=== PATIENT | female | born 1970 | race Caucasian/White ===

== ENCOUNTER → 2017-10-06 08:41 | Outpatient (CLI) | payer OTHER, SELFPAY ==
--- NOTE | 2017-10-06 | FLU_PTH ---
PATIENT: BERNARDO RUIZ LOC: U#:[id number] AGE/SX: 55/F ROOM: RE10/06/[address]: Dr. Ranjan Heart MD : 1970 BED: DIS: SPEC #: [id number] RECD: 10/06/17 10:43 STATUS: DEREK POTTS #: [id number] LAINA: 10/06/17 00:[address]: Ranjan Heart DEPT: CYTOLOGY RECD BY: Kody Guzman ENTERED: 10/06/17 10:51 SP TYPE: Fluid OTHR DR: Dr. Ger Reeder MD Tissues: Thyroid gland, NOS Procedures: FNA Specimen Adequacy Pap Stain (control) Special Stain Group II Surgery Specimen Level IV Diff Quik Stain (control) Cell Block Cytospin Fluid HEADER OPERATION: Ultrasound-guided right thyroid biopsy PRE-OP DIAGNOSIS: Right thyroid nodule TISSUE SUBMITTED: Right thyroid nodule FNA (14 slides) DIAGNOSIS CYTOLOGY Right thyroid nodule, ultrasound-guided FNA (smears and cell block): Consistent with benign colloid nodule. See cytology study and comment. ERVIN:julien 10/07/17 COMMENT The specimen is evaluated at the time of right thyroid FNA by Dr. Hills. Immediate Evaluation = Adequate for evaluation. Follicular cells present. Correlation with clinical, radiologic findings and appropriate follow up are necessary. CYTOLOGY STUDY Slides are reviewed. The specimen is adequate for evaluation. The specimen consists of benign follicular cells and colloid. CYTOLOGY GROSS Received is 0.5 ml of bloody fluid from three passes labeled with the patient's name, and designated right thyroid. Seven imprints and seven paps are made from the submitted fluid and the rest is added to CytoLyt for cell block preparation. Submitted for cytology study. / ERVIN:julien 10/06/17 TC:5 CPT:83126, 97078, 80858
--- NOTE | 2017-10-06 08:45 | US_ITS ---
STUDY: ULTRASOUND GUIDED BIOPSY THE RIGHT THYROID NODULE. REASON FOR EXAM: Female, 47 years old. Right thyroid nodule. TECHNIQUE: Under direct sonographic guidance, the surgeon performed 3 ultrasound-guided biopsies of the 3 cm x 1.7 cm x 1.6 cm solid nodule in the right lobe. COMPARISON: None. FINDINGS: Successful ultrasound-guided biopsy of the dominant nodule in the right lobe of the thyroid. US/US Thyroid Biopsy IMPRESSION: Successful ultrasound-guided biopsy of the nodular density in the right lobe of the thyroid. Electronically Signed: Evaristo Newby MD at 10:49 EST Tel [phone], Service support ,
--- NOTE | 2017-10-06 10:57 | PCM.OPRPT ---
Problem List (1) Nontoxic multinodular goiter Status: Acute Report of Operation Date of Procedure: 10/06/17 Pre-Operative Diagnosis: e04.2 multinodular goiter Post-Operative Diagnosis: Same Surgery/Procedure Performed:: 65104 Ultrasound-guided fine-needle aspiration of dominant right thyroid nodule Type of Anesthesia:: Local Description of Procedure: Ultrasound of the right thyroid gland revealed the dominant nodule in question. I prepped the skin with Betadine. I injected 1% lidocaine plain. Under ultrasound guidance I took 3 passes with a 22-gauge needle. These were given to the pathologist in the room and she stated we had adequate number of follicular cells. Sterile dressings were applied. The patient tolerated the procedure well. - Admit VTE Documentation VTE Present on Admission: No VTE Mechan Device Prophylaxis: None VTE Pharm Prophylaxis ordered?: No Reason prophylaxis not ordered:: Treatment Not Indicated
--- NOTE | 2017-10-06 11:01 | OP.PCM_ITS ---
Problem List (1) Nontoxic multinodular goiter Status: Acute Report of Operation Date of Procedure: 10/06/17 Pre-Operative Diagnosis: e04.2 multinodular goiter Post-Operative Diagnosis: Same Surgery/Procedure Performed:: 01214 Ultrasound-guided fine-needle aspiration of dominant right thyroid nodule Type of Anesthesia:: Local Description of Procedure: Ultrasound of the right thyroid gland revealed the dominant nodule in question. I prepped the skin with Betadine. I injected 1% lidocaine plain. Under ultrasound guidance I took 3 passes with a 22-gauge needle. These were given to the pathologist in the room and she stated we had adequate number of follicular cells. Sterile dressings were applied. The patient tolerated the procedure well. - Admit VTE Documentation VTE Present on Admission: No VTE Mechan Device Prophylaxis: None VTE Pharm Prophylaxis ordered?: No Reason prophylaxis not ordered:: Treatment Not Indicated
== END ==
PROVIDERS: Family Provider Family Medicine; PCP Family Medicine; Visit Provider Surgery
DX: E04.1 Nontoxic single thyroid nodule (principal)
CPT/HCPCS: 10022; 76942; 88108; 88172; 88305; 88312; 88313

== ENCOUNTER → 2017-10-13 15:18 | Outpatient (CLI) | payer OTHER, SELFPAY ==
[2017-10-19 15:55] LABS: HPV APTIMA, High Risk Negative (Negative)
== END ==
PROVIDERS: Nurse Practitioner Women's Health; Visit Provider Obstetrics & Gynecology
DX: Z12.4 Encounter for screening for malignant neoplasm of cervix (principal)
CPT/HCPCS: 88175; G0145

== ENCOUNTER → 2018-02-15 12:54 | Outpatient (CLI) | payer OTHER, SELFPAY ==
--- NOTE | 2018-02-15 12:56 | BI_ITS ---
MAMMOGRAPHY - BILATERAL SCREENING REASON FOR EXAM: Female, 48 years old. Routine annual screening examination. PERTINENT HISTORY: Non-contributory. TECHNIQUE: Digital bilateral breast jeanie (3D mammographic acquisition) in the CC and MLO projections. 2-D mediolateral oblique (MLO) and craniocaudad (CC) views of both breasts were obtained. CAD: Full Field Digital Mammography with Computer Added Detection was performed. COMPARISON: Comparison is made with prior outside examination dated January 11, 2017. FINDINGS: Breast Composition: The breasts are extremely dense, which lowers the sensitivity of mammography. There are no dominant masses or suspicious calcifications. No other significant abnormalities are identified. There has been no significant change since the prior study. BI/SCREENING MAMM (CAD), BILAT IMPRESSION: Stable bilateral screening mammogram. Yearly follow-up mammogram recommended. (A) ASSESSMENT CATEGORY: BIRADS Category 1: Negative. A letter regarding these results will be sent to the patient by the facility within 30 days. Approximately 10% of breast cancers are not detected by mammography. A normal mammogram should not delay biopsy of a clinically suspicious abnormality. [id number] Electronically Signed: Evaristo Newby MD at 15:11 EDT Tel [phone], Service support ,
== END ==
PROVIDERS: Family Provider Family Medicine; PCP Family Medicine; Visit Provider Nurse Practitioner Women's Health
DX: Z12.31 Encounter for screening mammogram for malignant neoplasm of breast (principal)
CPT/HCPCS: 77063; 77067

== ENCOUNTER → 2018-09-20 08:42 | Outpatient (CLI) | payer OTHER, SELFPAY ==
--- NOTE | 2018-09-20 08:49 | US_ITS ---
STUDY: THYROID ULTRASOUND REASON FOR EXAM: Female, 48 years old. Thyroid nodules TECHNIQUE: Ultrasound evaluation of the thyroid was performed with real-time and static mora-scale imaging. COMPARISON: 08/15/2017 FINDINGS: RIGHT LOBE: The right lobe of the thyroid gland measures 5.8 x 2.2 x 2.1 cm. There is a heterogeneous. There are multiple solid nodules, the largest of which measures 2.3 x 1.7 x 1.9 cm, not significantly changed in size and appearance compared to prior imaging. A smaller predominantly solid lesion is seen measuring 2.0 x 1.6 x 1.2 cm, unchanged. LEFT LOBE: The left lobe of the thyroid gland measures 4.4 x 1.0 x 1.1 cm. There is a heterogeneous. There is a solid lesion within the mid to lower pole measuring 0.5 x 0.4 x 0.2 cm, unchanged. ISTHMUS: The isthmus measures 4 mm. A 1.2 x 0.6 x 0.8 cm predominantly solid nodule is seen near the junction of the isthmus and right thyroid lobe, unchanged. The regional lymph nodes are normal. US/Thyroid IMPRESSION: Stable bilateral solid thyroid nodules measuring up to 2.3 cm, unchanged from prior imaging. Electronically Signed: Israel Weir MD at 3:59 EST Tel , Service support ,
--- OUTSIDE RECORDS SUMMARY | 2018-11-22 09:08 | XMS RPT_ITS ---
:1970 Author Organization [place] Support Name Relationship Address Phone EULALIO RUIZ Unavailable [address] + [place] [address] COVERT, KOKI Unavailable [address] + [place] [address] UNEMPLOYED Unavailable 00 + [place] [address] EULALIO RUIZ Unavailable [address] + [place] [address] COVERT, KOKI Unavailable [address] + [place] [address] UE Unavailable Unavailable Unavailable EULALIO RUIZ Unavailable [address] + [place] [address] COVERT, KOKI Unavailable [address] + [place] [address] UE Unavailable Unavailable Unavailable EULALIO RUIZ Unavailable [address] + [place] [address] COVERT, KOKI Unavailable [address] + [place] [address] UE Unavailable Unavailable Unavailable EULALIO RUIZ Unavailable [address] + [place] [address] COVERT, KOKI Unavailable [address] + [place] [address] UE Unavailable Unavailable Unavailable EULALIO RUIZ Unavailable [address] + [place] [address] COVERT, KOKI Unavailable [address] + [place] [address] UE Unavailable Unavailable Unavailable EULALIO RUIZ Unavailable [address] + [place] [address] COVERT, KOKI Unavailable [address] + [place] [address] UE Unavailable Unavailable Unavailable EULALIO RUIZ Unavailable [address] + [place] [address] COVERT, KOKI Unavailable [address] + [place] [address] UE Unavailable Unavailable Unavailable EULALIO RUIZ Unavailable [address] + [place] [address] COVERT, KOKI Unavailable [address] + [place] [address] UE Unavailable Unavailable Unavailable Care Team Providers Name Role Phone Una, Ranjan Attending Unavailable Una, Ranjan Referring Unavailable Reeder, Ger Primary Care Unavailable Una, Ranjan Attending Unavailable Reeder, Ger Referring Unavailable [place], Ranjan Attending Unavailable Una, Ranjan Referring Unavailable Reeder, Ger Primary Care Unavailable Una, Ranjan Attending Unavailable Una, Ranjan Referring Unavailable Reeder, Ger Primary Care Unavailable Una, Ranjan Consulting Unavailable Una, Ranjan Attending Unavailable Reeder, Ger Referring Unavailable Cammie, Danika Attending Unavailable Reeder, Ger Referring Unavailable Reeder, Ger Primary Care Unavailable Marcanthony, Samira Attending Unavailable Marcanthony, Samira Referring Unavailable Una, Ranjan Attending Unavailable Cammie, Danika Attending Unavailable Lucile, Danika Referring Unavailable Reeder, Ger Primary Care Unavailable PROBLEMS PROBLEMS DATE TYPE CONDITION / CODE ATTENDING STATUS SOURCE 09/20/2018 Unknown E04.2 - Nontoxic Ranjan Heart Active [facility] multinodular [facility] goiter / Hospital E04.2(ICD-10) Repository 10/13/2017 Unknown Z12.31 - Encounter Danika Bonds Active [facility] for screening [facility] mammogram for Hospital malignant neoplasm Repository of breast / Z12.31(ICD-10) 10/13/2017 Unknown N60.19 - Diffuse Lucile, Molly Active [facility] cystic mastopathy [facility] of unspecified Hospital breast / Repository N60.19(ICD-10) 10/13/2017 Unknown Z12.4 - Encounter LucileDanika robert Active [facility] for screening for [facility] malignant neoplasm Hospital of cervix / Repository Z12.4(ICD-10) PROCEDURES PROCEDURES No Procedure Records FoundRESULTS RESULTS SURGERY VISIT REPORT Observed: 09/23/2018 Status: F Source: [facility] 9[facility] [address] [place] [address] OFFICE VISIT Date of Service: 09/23/18 MR#: [id number] Acct: [id number] Name: BERNARDO RUIZ Rep #: [id number] : 1970 Provider: Ranjan Heart MD Age/Sex: 48/F Location: [facility] Status: Signed Intake Vital Signs09/23/18 Height 5 ft 4 in 09/23/18 Weight: 124 lb Intake Visit Reasons: Former [facility] 1 YR f/u Thyroid US [facility] 09/20 Chief Complaint: est annual Sleeve Maker Required: No Is patient in pain?: No Allergies venlafaxine [From Effexor] Allergy (Intermediate, Verified 09/23/18 09:15) skin crawling Medications bupropion HCl XL 150 mg 24 hr tablet, extended release 150 mg PO QAM 10/13/17 [History Confirmed 09/23/18] calcium citrate 200 mg (950 mg) tablet 500 mg PO BID tab 10/13/17 [History Confirmed 09/23/18] fluticasone 50 mcg/actuation nasal spray,suspension 50 mcg INTRANASAL ONCE 10/13/17 [History Confirmed 09/23/18] multivitamin,ja-afrc-efinwwyf tablet 1 tab PO QDAY 10/13/17 [History Confirmed 09/23/18] estradiol-norethindrone acet 0.5 mg-0.1 mg tablet 1 tab PO QDAY #84 tab 09/05/18 [Rx Confirmed 09/23/18] atorvastatin 10 mg tablet 10 mg PO DAILY 09/23/18 [History Confirmed 09/23/18] pantoprazole 40 mg tablet,delayed release 40 mg PO .prn tab 09/23/18 [History Confirmed 09/23/18] [facility]LY [facility] Medical History Hypercholesterolemia (Acute) Anxiety and depression (Acute) Back problem (Acute) GERD (gastroesophageal reflux disease) (Acute) Melanoma (Acute) history of melanoma removed off of wrist (Acute) Family History Mother Arthritis Mother Heart disease Hypertension Father Heart disease Hypertension High cholesterol Social History Smoking Status: Never smoker second hand exposure: No alcohol intake: current details: social substance use type: does not use caffeine: Yes frequency: 5-6 times per week seatbelt use: always do you feel safe at home: Yes 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 She has not been experiencing any changes in her voice she has no history of exposure to radiation. ROS General General: No weight change, appetite, fatigue, colon cancer, breast cancer or weakness HEENT HEENT: No difficulty swallowing, eye injury, eye surgery, swollen glands or hoarseness Endo Endocrine: No thyroid disease, diabetes mellitus, thyroid cancer, Hair loss, heat intolerance or cold intolerance Skin Skin: No rash or changing moles Breast Breast: No left breast lump, right breast lump, nipple discharge, breast pain, abnormal mammogram, abnormal US or breast enlargement Musc Musculoskeletal: No back problems, arthritis, rheumatoid arthritis, gout or joint pain Cardio Cardiovascular: No murmur, pacemaker, heart disease, atrial fibrillation, high blood pressure, heart attack, heart stent, palpitations, shortness of breat with exertion or chest pain Psych Psychiatric: No depression, anxiety or hearing voices Resp Respiratory: No shortness of breath, No sleep apnea, No cough, No COPD, No asthma, No emphysema, No wheezing Gastro Gastrointestinal: No abdominal pain, No nausea or vomiting, No diarrhea, No constipation, No blood in stool, Yes acid reflux, No hemorrhoids, No ulcers, No gallbladder problem, No black,tarry stools Ritesh Hematologic: No blood thinners, No blood disorders, No bleeding, No anemia, No blood clots Neuro Neurologic: No system reviewed and no additional complaints, except as docu, No as per HPI, No abnormal walking, No abnormal hearing, No abnormal movements, No abnormal speech, No behavioral changes, No burning sensations, No confusion, No seizure-like activity, No unsteadiness, No dizziness, No localized weakness, No frequent falls, No headache(s), No lack of coordination, No loss of vision, No memory loss, No numbness, No other visual disturbances, No radiating pain, No restless legs, No sensory deficit, No fainting, No tingling, No tremor(s), No weakness, No other Exam Const General: well developed, no acute distress, well hydrated Orientation: oriented to person, oriented to place, oriented to time [facility] Head: normocephalic, atraumatic Ears: external ears normal Mouth: moist mucous membranes Other: Thyroid Exam: Thyroid is small. There are no hard palpable nodules identified. There is no lymphadenopathy bilaterally. Eyes Sclera: sclerae normal Pupils: normal by confrontation Neck Neck: no lymphadenopathy noted Neck mass: No Thyroid: symmetrical, thyroid normal Chest Breast Palpation: No nipple discharge Cardio Heart Sounds: no murmurs Assessment AND Plan Problems 1. Multinodular goiter (nontoxic) E04.2 Plan Patient can continue to get her yearly thyroid ultrasounds. If there is any growth by more than 3% we will repeat a fine-needle aspiration. I have also instructed the patient that she needs to have a colonoscopy she is not interested in having this done at this time Medications New: Coding Level of Care Code Off vis,est,level 2 Diagnoses Multinodular goiter (nontoxic) E04.2 09/23/18 0926 <Electronically signed by Ranjan Heart MD> Date Ranjan Heart MD Cosigner Signature: Date (if applicable) CC: Ger Reeder MD THYROID Observed: 09/20/2018 Status: F Source: [place] 8:49 AM [facility] REPOSITORY [facility] Imaging Services [address] [place] [address] Thyroid MR#: [id number] Acct: [id number] Name: BERNARDO RUIZ Rep #: [id number] : 1970 F 48 From: Israel Weir MD PCP: Ger Reeder MD Status: REG CLI Study: Thyroid Date of Exam: 09/20/18 Exam# [id number] Ordering Dr: Ranjan Herat MD STUDY: THYROID ULTRASOUND REASON FOR EXAM: Female, 48 years old. Thyroid nodules TECHNIQUE: Ultrasound evaluation of the thyroid was performed with real-time and static mora-scale imaging. COMPARISON: 08/15/2017 FINDINGS: RIGHT LOBE: The right lobe of the thyroid gland measures 5.8 x 2.2 x 2.1 cm. There is a heterogeneous. There are multiple solid nodules, the largest of which measures 2.3 x 1.7 x 1.9 cm, not significantly changed in size and appearance compared to prior imaging. A smaller predominantly solid lesion is seen measuring 2.0 x 1.6 x 1.2 cm, unchanged. LEFT LOBE: The left lobe of the thyroid gland measures 4.4 x 1.0 x 1.1 cm. There is a heterogeneous. There is a solid lesion within the mid to lower pole measuring 0.5 x 0.4 x 0.2 cm, unchanged. ISTHMUS: The isthmus measures 4 mm. A 1.2 x 0.6 x 0.8 cm predominantly solid nodule is seen near the junction of the isthmus and right thyroid lobe, unchanged. The regional lymph nodes are normal. US/Thyroid IMPRESSION: Stable bilateral solid thyroid nodules measuring up to 2.3 cm, unchanged from prior imaging. Electronically Signed: Israel Weir MD at 3:59 EST Tel , Service support , CC: Ranjan Heart MD; Ger Reeder MD Warp Knit Operator: Signed LOAN REPRESENTATIVE OFFICE VISIT Observed: 08/04/2018 Status: F Source: [place] REPORT 2:38 PM [facility] [address] [place] [address] OFFICE VISIT Date of Service: 10/13/17 MR#: [id number] Acct: [id number] Name: BERNARDO RUIZ Rep #: [id number] : 1970 Provider: BAM Bonds Age/Sex: 47/F Location: [facility] Status: Signed with Addenda ADDENDUM by BAM Bonds on 08/04/18 at 1438 Addendum entered and electronically signed by LÓPEZ Lieberman 08/04/18 14:38: Rectal exam was deferred. No masses palpated Assessment AND Plan Problems 1. Encounter for gynecological examination without abnormal finding Z01.419 2. Pap smear for cervical cancer screening Z12.4 3. Encounter for screening mammogram for malignant neoplasm of breast Z12.31 4. Fibrocystic disease of left breast N60.12 left breast-ultrasound previous. No biopsy Plan - LÓPEZ Lieberman Completed breast and pelvic exam Reviewed diet and exercise Pap thin prep pap with HPV collected Mammogram ordered Contraception partner with vasectomy Fibrocystic breast is not new for her and has been evaluated in past Will continue with Activella but will try to take very other day and attempt to wean down further next year RTO 1 year, prn with problems Danika Bonds OVERNIGHT HOUSEPERSON Orders Orders: Medications Changed: 08/04/18 1438 <Electronically signed by Danika DAWN> Date Danika Bonds cc: * Signed Intake Vital Signs10/13/17 Height 5 ft 4 in 10/13/17 Weight: 116 lb 6 oz 10/13/17 Body Mass Index (BMI) 20.0 10/13/17 Blood Pressure 121/73 Intake Visit 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 [facility] PT Chief Complaint: est annual Sleeve Maker Required: No Is patient in pain?: No Allergies venlafaxine [From Effexor] Allergy (Intermediate, Verified 10/13/17 09:43) skin crawling Medications bupropion HCl XL 150 mg 24 hr tablet, extended release 150 mg PO QAM 10/13/17 [History Confirmed 10/13/17] calcium citrate 200 mg (950 mg) tablet 500 mg PO BID tab 10/13/17 [History Confirmed 10/13/17] estradiol-norethindrone acet 0.5 mg-0.1 mg tablet 1 tab PO QDAY #84 tab 10/13/17 [Rx Confirmed 10/13/17] fluticasone 50 mcg/actuation nasal spray,suspension 50 mcg INTRANASAL ONCE 10/13/17 [History Confirmed 10/13/17] multivitamin,be-ldzj-pmjrxzna tablet 1 tab PO QDAY 10/13/17 [History Confirmed 10/13/17] Is last menstrual period known: Yes Last Menstral Period: 04/30/10 Post menopausal: No Patient : No : No PFSH Medical History Anxiety and depression (Acute) Back problem (Acute) GERD (gastroesophageal reflux disease) (Acute) Melanoma (Acute) history of melanoma removed off of wrist (Acute) Family History Mother Arthritis Mother Heart disease Hypertension Father Heart disease Hypertension High cholesterol Social History Smoking Status: Never smoker second hand exposure: No alcohol intake: current details: social substance use type: does not use caffeine: Yes frequency: 5-6 times per week seatbelt use: always do you feel safe at home: Yes 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 DatName GA/WeeksOutcome Route 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 Denies concerns Last PAP: unsure History of abnormal PAP: no Last mammogram: 10/2016 History of abnormal mammogram: benign biopsy Contraception-vasectomy Female Reproductive History Last Menstral Period: 04/30/10 Questions: Metorrhagia: No, Sexually active: No, Dyspareunia: No, PCB: No Date of menopause: 04/30/10 Menopausal Treatment: Yes HRT Exam Const General: cooperative, healthy appearing, no acute distress, well developed Orientation: alert, oriented to person, oriented to place [facility] Head: normal to inspection Neck Neck: normal visual inspection Thyroid: thyroid normal Lymphatic: no lymphadenopathy noted Chest Breast inspection: normal inspection of the breasts, normal inspection of the axillae Breast palpation: normal palpation of the breasts, normal palpation of the axillae, no axillary lymphadenopathy Resp Effort AND Inspection: normal respiratory effort Auscultation: clear to auscultation bilaterally Cardio Rate: regular rate Rhythm: regular rhythm GI Palpation: soft, nontender, no masses Rectal Exam: mass, deferred External Female Exam: normal external appearance, normal appearance of the urethra Urethra: normal appearance of the urethra, normal palpation Speculum Exam - Vagina: normal appearance of the vagina, normal vaginal discharge Speculum Exam - Cervix: normal appearance of the cervix, other (pap collected) Bimanual Exam- Vagina AND Uterus: normal bimanual exam, uterine size normal, uterine shape normal, uterus non-tender Bimanual Exam- Adnexa, other: normal adnexae, no adnexal masses, adnexae non-tender, pelvic support normal Pelvic Support: normal Neuro General: alert, oriented x3 Psych Affect: normal affect Assessment AND Plan Problems 1. Encounter for gynecological examination without abnormal finding Z01.419 2. Pap smear for cervical cancer screening Z12.4 3. Encounter for screening mammogram for malignant neoplasm of breast Z12.31 4. Fibrocystic disease of left breast N60.12 left breast-ultrasound previous. No biopsy Plan Completed breast and pelvic exam Reviewed diet and exercise Pap thin prep pap with HPV collected Mammogram ordered Contraception partner with vasectomy Fibrocystic breast is not new for her and has been evaluated in past Will continue with Activella but will try to take very other day and attempt to wean down further next year RTO 1 year, prn with problems Danika Bonds CNP Orders Orders: Medications Changed: Coding Level of Care Code Off vis,new,prev 40-64yrs Diagnoses Encounter for gynecological examination without abnormal finding Z01.419 Gynecological examination findings: abnormal findings ABSENT Pap smear for cervical cancer screening Z12.4 Encounter for screening mammogram for malignant neoplasm of breast Z12.31 Fibrocystic disease of left breast N60.12 Laterality: left 10/13/17 1028 <Electronically signed by Danika DAWN> Date Danika DAWN Cosigner Signature: Date (if applicable) CC: SCREENING MAMM (CAD), Observed: 02/15/2018 Status: F Source: [facility] 12:56 PM [facility] REPOSITORY [facility] Imaging Services [address] [place] [address] SCREENING MAMM (CAD), BIL MR#: [id number] Acct: [id number] Name: BERNARDO RUIZ Rep #: [id number] : 1970 F 48 From: Evaristo Newby MD PCP: Ger Reeder MD Status: REG CL Study: SCREENING MAMM (CAD), BIL Date of Exam: 02/15/18 Exam# [id number] Ordering Dr: Danika Bonds MAMMOGRAPHY - BILATERAL SCREENING REASON FOR EXAM: Female, 48 years old. Routine annual screening examination. PERTINENT HISTORY: Non-contributory. TECHNIQUE: Digital bilateral breast jeanie (3D mammographic acquisition) in the CC and MLO projections. 2-D mediolateral oblique (MLO) and craniocaudad (CC) views of both breasts were obtained. CAD: Full Field Digital Mammography with Computer Added Detection was performed. COMPARISON: Comparison is made with prior outside examination dated January 11, 2017. FINDINGS: Breast Composition: The breasts are extremely dense, which lowers the sensitivity of mammography. There are no dominant masses or suspicious calcifications. No other significant abnormalities are identified. There has been no significant change since the prior study. BI/SCREENING MAMM (CAD), BILAT IMPRESSION: Stable bilateral screening mammogram. Yearly follow-up mammogram recommended. (A) ASSESSMENT CATEGORY: BIRADS Category 1: Negative. A letter regarding these results will be sent to the patient by the facility within 30 days. Approximately 10% of breast cancers are not detected by mammography. A normal mammogram should not delay biopsy of a clinically suspicious abnormality. [id number] Electronically Signed: Evaristo Newby MD at 15:11 EDT Tel [phone], Service support , CC: BAM Bonds; Ger Reeder MD Warp Knit Operator: Signed PAP IG HPV HR Collected: 10/13/2017 Status: F Source: [place] 4:49 PM [facility] REPOSITORY Order Comment: CYTOLOGY INFORMATION: - CLINICAL INFORMATION: annual - DATE LMP/MENOPAUSE: LMP 04/30/10 - COLLECTION VIAL: Thin Prep Vial - MASON FOREMAN/SUPERINTENDANT SOURCE: CERVICAL - COLLECTION TECHNIQUE: BRUSH ONLY/ cervix broom only Specimen Comment: [id number] Specimen Comment: No. of containers..01 ThinPrep Vial TYPE CODE TESTS RESULT OUT OF REFERENCE UNITS RANGE LAB L7400.0800 . High DIAGN Comment Result Comment: EPITHELIAL CELL ABNORMALITY. ATYPICAL SQUAMOUS CELLS OF UNDETERMINED SIGNIFICANCE. LAB L7400.0900 . Normal ADEQ Comment Result Comment: Satisfactory for evaluation. Endocervical and/or squamous metaplastic cells (endocervical component) are present. LAB L7400.1400 . Normal PERFORM Comment Result Comment: Nadeem Villela, Wild Animal Caretaker (ASCP) LAB L7400.1700 . Normal SIGN Comment Result Comment: Trevin Amaral MD (Charles), Pathologist LAB L7400.1720 . Normal Path prov. Comment ICD9 Result Comment: R87.610 LAB L7400.2575 . Normal TEST METHOD Comment Result Comment: This liquid based ThinPrep(R) pap test was screened with the use of an image guided system. LAB L7400.2600 . Normal . COMM LAB L7400.2700 . Normal PAPSMR Comment Result Comment: The Pap smear is a screening test designed to aid in the detection of premalignant and malignant conditions of the uterine cervix. It is not a diagnostic procedure and should not be used as the sole means of detecting cervical cancer. Both false-positive and false-negative reports do occur. LAB L7400.1490 Negative Normal HPV APTIMA, Negative HR Result Comment: This test detects fourteen high-risk HPV types (16/18/31/33/35/39/45/ 51/52/56/58/59/66/68) without differentiation. Performed at: [facility] [place] [id number] Device Engineer: Bhavna Damian MD, Phone: [phone] Performed at: [facility] [address] [id number] Device Engineer: Suzi Hensley MD, Phone: [phone] Performed at: =[facility] [id number] Device Engineer: Suzi Hensley MD, Phone: [phone] Performed By: #### L7400.0377 #### [facility] (refer to report for specific site) refer to report for address and phone number OPERATIVE REPORT Observed: 10/06/2017 Status: F Source: [place] 11:01 AM [facility] REPOSITORY [facility] Medical Records Department [address] [place] [id number] Operative Report 10/06/17 1057 MR#: [id number] Acct: [id number] Name: JOSEPHBERNARDO A Rep #: [id number] : 1970 47 From: Ranjan Heart MD PCP: Ger Reeder MD Status: REG CLI Y Location: US Problem List (1) Nontoxic multinodular goiter Status: Acute Report of Operation Date of Procedure: 10/06/17 Pre-Operative Diagnosis: e04.2 multinodular goiter Post-Operative Diagnosis: Same Surgery/Procedure Performed:: 52370 Ultrasound-guided fine- needle aspiration of dominant right thyroid nodule Type of Anesthesia:: Local Description of Procedure: Ultrasound of the right thyroid gland revealed the dominant nodule in question. I prepped the skin with Betadine. I injected 1% lidocaine plain. Under ultrasound guidance I took 3 passes with a 22-gauge needle. These were given to the pathologist in the room and she stated we had adequate number of follicular cells. Sterile dressings were applied. The patient tolerated the procedure well. - Admit VTE Documentation VTE Present on Admission: No VTE Mechan Device Prophylaxis: None VTE Pharm Prophylaxis ordered?: No Reason prophylaxis not ordered:: Treatment Not Indicated 10/06/17 1101 <Electronically signed by Ranjan Heart MD> Date Ranjan Heart MD CC: Ranjan Heart MD; Ger Reeder MD Signed US THYROID BIOPSY Observed: 10/06/2017 Status: F Source: [place] 8:45 AM [facility] REPOSITORY [facility] Imaging Services [address] [place] [address] US Thyroid Biopsy MR#: [id number] Acct: [id number] Name: BERNARDO RUIZ Rep #: [id number] : 1970 F 47 From: Evaristo Newby MD PCP: Ger Reeder MD Status: REG CLI Study: US Thyroid Biopsy Date of Exam: 10/06/17 Exam# [id number] Ordering Dr: Ranjan Heart MD STUDY: ULTRASOUND GUIDED BIOPSY THE RIGHT THYROID NODULE. REASON FOR EXAM: Female, 47 years old. Right thyroid nodule. TECHNIQUE: Under direct sonographic guidance, the surgeon performed 3 ultrasound-guided biopsies of the 3 cm x 1.7 cm x 1.6 cm solid nodule in the right lobe. COMPARISON: None. FINDINGS: Successful ultrasound-guided biopsy of the dominant nodule in the right lobe of the thyroid. US/US Thyroid Biopsy IMPRESSION: Successful ultrasound-guided biopsy of the nodular density in the right lobe of the thyroid. Electronically Signed: Evaristo Newby MD at 10:49 EST Tel [phone], Service support , CC: Ranjan Heart MD; Ger Reeder MD Warp Knit Operator: Signed FLUID/WASHING Observed: 10/06/2017 Status: F Source: [place] 12:00 AM [facility] REPOSITORY Patient: BERNARDO RUIZ : 1970 (47/F) Acct Num: [id number] Phys: Una SRIVASTAVA,Ranjan Unit Num: [id number] Loc: US Specimen: [id number] Received: 10/06/17 - 1043 Spec Type: Fluid TISSUES TISSUES: Thyroid gland, NOS COMMENT The specimen is evaluated at the time of right thyroid FNA by Dr. Hills. Immediate Evaluation = Adequate for evaluation. Follicular cells present. Correlation with clinical, radiologic findings and appropriate follow up are necessary. CYTOLOGY GROSS Received is 0.5 ml of bloody fluid from three passes labeled with the patient's name, and designated right thyroid. Seven imprints and seven paps are made from the submitted fluid and the rest is added to CytoLyt for cell block preparation. Submitted for cytology study. / ERVIN:julien 10/06/17 TC:5 CPT:67118, 79666, 10463 CYTOLOGY STUDY Slides are reviewed. The specimen is adequate for evaluation. The specimen consists of benign follicular cells and colloid. DIAGNOSIS CYTOLOGY Right thyroid nodule, ultrasound-guided FNA (smears and cell block): Consistent with benign colloid nodule. See cytology study and comment. SJ:julien 10/07/17 HEADER OPERATION: Ultrasound-guided right thyroid biopsy PRE-OP DIAGNOSIS: Right thyroid nodule TISSUE SUBMITTED: Right thyroid nodule FNA (14 slides) Signed Keo Hills 10/07/17 <signature on file> Performed By: #### PFLU #### [facility] [place], [address] ALLERGIES ALLERGIES DATE TYPE / CODE NAME / CODE REACTION SEVERITY SOURCE 09/23/2018 Drug venlafaxine/ SKIN CRAWLING [facility] Allergy/4160 [id number](R Hospital 66887(SNOMED XNORM) Repository CT) ENCOUNTERS ENCOUNTERS ADMIT/DISCHARGE ACCOUNT ADMITTING ENCOUNTER LOCATION SOURCE NUMBER CLASS 09/23/2018/ [id number] Ambulatory BMSBuilding:B [place] [address] 8 [place] Repository 09/20/2018 [id number] Ambulatory [place] 6 [facility] ing:[place] Repository 02/15/2018 [id number] Ambulatory [place] [facility] ing:OPBI Repository 10/13/2017 [id number] Ambulatory [place] [facility] ing:LABSPEC Repository 10/13/2017/ [id number] Ambulatory BMSBuilding:B [place] 8 2 [facility] Repository 10/12/2017 [id number] Ambulatory BMSBuilding:B [place] 4 [place].[facility] Repository 10/06/2017 [id number] Ambulatory [place] 9 [facility] ing:[place] Repository 10/06/2017 [id number] Ambulatory BMSBuilding:B [place] 4 MS.[facility] Repository 10/06/2017 [id number] Ambulatory BMSBuilding:[address] [place] 5 [place].[facility] Repository PAYERS PAYERS ENCOUNTER GUARANTOR PAYER SUBSCRIBER SOURCE 09/23/2018 BERNARDO Doshi Primary EULALIO G [place] [id number] CR Insurance:MEDICAL COLLINSDOB: [address] 6203-03-06[place], [place] [address]Uik: Number: Repository [id number] (HP) Date:1605-60-88WE[address] [address]PM: 09/23/2018 Secondary NOT GIVENUNK [place] Insurance:SELF PAY [facility] Number: Effective Repository Date:2018-09-07 09/20/2018 EULALIO G Primary EULALIO G [place] [id number] CR Insurance:MEDICAL COLLINSDOB: [address] 1938-60-09[place], [place] [address]Lpo: Number: Repository [id number] (HP) Date:9170-59-24IP [address] [address]AR: 09/20/2018 Secondary BERNARDO A [place] Insurance:[facility] PACKAGE COLLINSDOB: [facility] Number: [id number] Hospital [id number] Repository Date:2018-09-07 09/20/2018 Tertiary NOT GIVENUNK [place] Insurance:SELF PAY [facility] Number: Effective Repository Date:2018-09-07 02/15/2018 Eulalio G Primary Eulalio G [place] [id number] CR Insurance:MEDICAL CollinsDOB: [address], [place] [address]Fbx: Number: Repository [id number] (HP) Date:3873-07-54HL [place] [id number]: 02/15/2018 Secondary NOT GIVENUNK [place] Insurance:SELF PAY [facility] Number: Effective Repository Date:2018-01-10 10/13/2017 Eulalio G Primary Eulalio G [place] [id number] CR Insurance:MEDICAL CollinsDOB: [address], [place] [address]Zxn: Number: Repository [id number] (HP) Date:2792-42-47[place] [id number]: 10/13/2017 Secondary NOT GIVENUNK [place] Insurance:SELF PAY [facility] Number: Effective Repository Date:2017-10-13 10/13/2017 Eulalio G Primary Eulalio G [place] [id number] CR Insurance:MEDICAL CollinsDOB: [address], [place] [address]Dzf: Number: Repository [id number] (HP) Date:4950-37-98JY [address] [address]CG: 10/13/2017 Secondary NOT GIVENUNK [place] Insurance:SELF PAY [facility] Number: Effective Repository Date:2017-10-11 10/12/2017 Eulalio G Primary Eulalio G [place] [id number] CR Insurance:MEDICAL CollinsDOB: [address], [place] [address]Xwl: Number: Repository [id number] (HP) Date:6850-51-66OL [place] [id number]: 10/12/2017 Secondary NOT GIVENUNK [place] Insurance:SELF PAY [facility] Number: Effective Repository Date:2017-10-07 10/06/2017 Eulalio G Primary Eulalio G Irene [id number] CR Insurance:MEDICAL CollinsDOB: [address] [id number]: Number: Repository [id number] (HP) Date:8950-01-05JH [place] [id number]: 10/06/2017 Secondary NOT GIVENUNK [place] Insurance:SELF PAY [facility] Number: Effective Repository Date:2017-09-21 10/06/2017 Eulalio G Primary Eulalio G [place] [id number] CR Insurance:MEDICAL CollinsDOB: [address], [place] [address]Uej: Number: Repository [id number] (HP) Date:6657-22-91VK [address] [address]SY: 10/06/2017 Secondary NOT GIVENUNK [place] Insurance:SELF PAY [facility] Number: Effective Repository Date:2017-10-06 10/06/2017 Eulalio G Primary Eulalio G Irene [id number] CR Insurance:MEDICAL CollinsDOB: [address] [id number]: Number: Repository [id number] (HP) Date:0780-85-86[address] [address]XY: 10/06/2017 Secondary NOT GIVENUNK [place] Insurance:SELF PAY [facility] Number: Effective Repository Date:2017-10-06
== END ==
PROVIDERS: Family Provider Family Medicine; PCP Family Medicine; Referring Provider Surgery; Visit Provider Surgery
DX: E04.2 Nontoxic multinodular goiter (principal)
CPT/HCPCS: 76536

== ENCOUNTER → 2019-02-17 15:57 | Outpatient (CLI) | payer OTHER, SELFPAY ==
[2018-10-18 12:59] VITALS: BMI 21.2
--- NOTE | 2019-02-17 15:59 | BI_ITS ---
MAMMOGRAPHY - BILATERAL SCREENING 3-D TOMOSYNTHESIS REASON FOR EXAM: Female, 49 years old. Bilateral Screening 3-D tomosynthesis PERTINENT HISTORY: No significant family history. TECHNIQUE: 2-D mammograms and 3-D Tomosynthesis of the breast (s) were performed. CAD was performed. COMPARISON: February 15, 2018 FINDINGS: The breast composition is heterogeneously dense breasts No spiculated masses or suspicious microcalcifications are identified. No architectural distortion is identified. There is no skin thickening or retraction. There has been no significant change since the prior study. February 15, 2018 BI/SCREEN MAMM (CAD) W/JORGE BILAT IMPRESSION: No mammographic signs of malignancy. Routine yearly mammograms recommended. ASSESSMENT CATEGORY: BIRADS Category 1: Negative. A letter regarding these results will be sent to the patient by the facility within 30 days. FOLLOW UP RECOMMENDATION: Yearly follow up mammogram recommended. (A) Approximately 10% of breast cancers are not detected by mammography. A normal mammogram should not delay biopsy of a clinically suspicious abnormality. Electronically Signed: Natalie Harp, at 10:32 EDT Tel , Service support ,
== END ==
PROVIDERS: Family Provider Family Medicine; PCP Family Medicine; Referring Provider Nurse Practitioner Women's Health; Visit Provider Nurse Practitioner Women's Health
DX: Z12.31 Encounter for screening mammogram for malignant neoplasm of breast (principal)
CPT/HCPCS: 77063; 77067

== ENCOUNTER 2019-09-29 09:17 | Observation (INO) | payer OTHER, SELFPAY ==
[2019-05-21 10:27] VITALS: BMI 21.2
[2019-09-29] VITALS (14 sets, daily range): BP systolic 127–176; BP diastolic 73–93; PULSE 75–93; RESP 14–19; TEMP 36.6–41.1; O2SAT 97–100; BMI 20.4; BMI 20.7; BMI 22.1; BMI 22.0
--- NOTE | 2019-09-29 09:24 | NURSING ---
NO OLD EKGS
--- NOTE | 2019-09-29 09:24 | EKG12_ITS ---
Test Reason : STROKE Blood Pressure : / mmHG Vent. Rate : 081 BPM Atrial Rate : 081 BPM P-R Int : 142 ms QRS Dur : 078 ms QT Int : 374 ms P-R-T Axes : 073 065 033 degrees QTc Int : 434 ms Normal sinus rhythm Normal ECG Confirmed by KURT SRIVASTAVA, MALINI ([id number]), multimedia editor SHASHI BROOKS ([id number]) on 10/02/2019 3:23:07 PM Referred By: JOSUÉ Confirmed By:MALINI HICKS MD
--- NOTE | 2019-09-29 09:24 | CT_ITS ---
STUDY: CT BRAIN WITHOUT CONTRAST REASON FOR EXAM: Female, 49 years old. LEFT SIDED NUMBNESS RADIATION DOSAGE (If Supplied By Facility): CTDIvol = ( 44.99 ) mGy, DLP = ( 745.49 ) mGycm TECHNIQUE: Transaxial CT imaging of the brain was performed without administration of intravenous contrast material. Individualized dose optimization techniques were used for this CT. COMPARISON: No relevant priors. FINDINGS: Normal soft tissue structures. Normal calvarium. Normal size ventricles and extra-axial spaces for the patient''s age. Normal white matter tracts of the cerebral hemispheres. Normal basal ganglia and thalami. Normal brainstem. Normal cerebellum. There is no intracranial hemorrhage. There are no findings of an acute ischemic infarction. Normal visualized paranasal sinuses. CT/Brain/Head without Contrast IMPRESSION: Normal unenhanced CT scan of the brain. N.B. : The above information has been verbally conveyed by Evaristo Newby to Dr Kellie MD, on 09/29/2019 09:35:43 (ET). Electronically Signed: Evaristo Newby, at 9:36 EST , Service support ,
--- NOTE | 2019-09-29 09:25 | ED.DCSUM_ITS ---
History of Present Illness Chief Complaint: Neuro S/Sx Informant: Patient, Significant Other Onset: Today Context: Gradual Onset Timing: Continuous Quality and Location: Left Face Parasthesia, Left Leg Parasthesia, Left Leg Weakness Associated Symptoms: Headache Narrative: Patient is a 49-year-old female with history of anxiety and hyperlipidemia presenting with paresthesias. Patient woke up this morning around 6 AM. She woke up because she was having some neck pain. This neck pain is chronic and patient is actually in physical therapy for it. Her last episode of physical therapy was yesterday. Around 630 she notes she had a headache. It was in the front of her head. She notes she is had some nasal congestion lately. She denies any associated vision changes. As the headache resolved around 8 AM she started to get paresthesias of her left face. This then progressed to paresthesias of her left arm. In addition she feels her left thigh is weak. Laurent yepez then came to the emergency room. Outpatient denies any falls or injuries. She denies any history of stroke. She does have a family history of hyperlipidemia. Patient is no other complaints at this time. Past Medical History - Allergies and Home Meds Allergies/Adverse Reactions: Allergies venlafaxine [From Effexor] Allergy (Intermediate, Verified 09/29/19 09:38) skin crawling makes her feel like skin is crawling Primary Care Physician: Ger Butcher MD [Primary Care Provider] - Past Medical History: - - Hyperlipidemia, depression Surgical History: noncontributory Lives: Spouse/ Significant Other Smoking Status: Never smoker Alcohol: None Drugs: None Review of Systems General: Denies: Chills, Fever, Sweats Eyes: Denies: Visual changes - bilaterally, Diplopia ENT: Denies: Rhinorrhea, Sore throat Cardiovascular: Denies: Chest pain, Palpitations Respiratory: Denies: Dyspnea, Cough, Dyspnea on exertion Gastrointestinal: Denies: Abdominal pain, Nausea, Vomiting, Diarrhea, Melena, Hematochezia Genitourinary: Denies: Dysuria, Hematuria, Frequency Musculoskeletal: Denies: Back pain, Extremity Pain Skin: Denies: Rash, Wounds Neurological: Reports: Headache - Resolved, Weakness - Left thigh, Parasthesia - Left face and left arm. Denies: Numbness STROKE Inital Vital Signs reviewed: Yes - NIHSS Initial 1a Level of Consciousness: 0 1b LOC Questions (Score 2 if aphasic/stupor): 0 1c LOC Commands (Only score 1st attempt): 0 2 Best Gaze (If aphasic, use reflexive mvmts.): 0 3 Visual: 0 4 Facial Palsy: 0 5 Motor Arm Right (UN = amputation/fusion): 0 5 Motor Arm Left: 0 6 Motor Leg Right: 0 6 Motor Leg Left: 0 7 Limb ataxia (Only + if out of proportion): 0 8 Sensory (Aphasia/stupor=0 or 1, coma=2): 1 9 Best Language: 0 10 Dysarthria (mute, coma=2, intubated=UN): 0 11 Extinction and Inattention (only scored if +): 0 Total Score: 1 General: Well nourished, Well developed Head: Normocephalic, Atraumatic Eyes: Perrl, EOMI ENT: Moist mucous membranes, No rhinorrhea, TM's clear Neck: Supple, Nontender Cardiovascular: Regular rate, Regular rhythm, No murmurs Respiratory: No distress, CTA bilaterally, Chest nontender Abdomen: Soft, Nontender, Nondistended, Normal bowel sounds Back: Nontender, Normal Inspection Extremities: Nontender, No edema Skin: Normal color, No rash Neurological: Alert, Oriented x3, Cranial nerves II-XII grossly intact, Normal Strength Psychological: Normal affect Diagnostic/Tx/Re-eval Clinical Impression(s) from Imaging Studies Brain CT 09/29/19 09:24 IMPRESSION: Normal unenhanced CT scan of the brain. N.B. : The above information has been verbally conveyed by Evaristo Newby to Dr Kellie MD, on 09/29/2019 09:35:43 (ET). Electronically Signed: Evaristo Newby, at 9:36 EST , Service support , ADDENDUM: 09/29/19 0943 IMPRESSION: Normal unenhanced CT scan of the brain. N.B. : The above information has been verbally conveyed by Evaristo Newby to Dr Kellie MD, on 09/29/2019 09:35:43 (ET). Electronically Signed: Evaristo Newby, at 9:36 EST , Service support , Head/Neck CTA 09/29/19 10:08 IMPRESSION: Normal CTA Head and neck with contrast. Electronically Signed: Evaristo Newby, at 10:55 EST , Service support , Chest X-Ray 09/29/19 10:22 IMPRESSION: Normal x-ray examination of the chest. Electronically Signed: Evaristo Newby, at 10:56 EST , Service support , Laboratory Data 09/29/19 09/29/19 09/29/19 09:29 09:30 09:30 WBC 10.6 RBC 4.94 Hgb 15.0 Hct 44.2 MCV 89.5 MCH 30.4 MCHC 33.9 RDW Std Deviation 37.3 RDW Coeff of Ion 11.6 Plt Count 211 MPV 8.9 Immature Gran % (Auto) 0.600 Neut % (Auto) 82.2 H Lymph % (Auto) 10.7 L [place] % (Auto) 5.6 Eos % (Auto) 0.7 Baso % (Auto) 0.2 Absolute Neuts (auto) 8.7 H Absolute Lymphs (auto) 1.13 Nucleated RBC % 0 PT 13.0 INR 1.0 APTT 26.6 Sodium Potassium Chloride Carbon Dioxide Anion Gap BUN Creatinine Estim Creat Clear Calc Est GFR (MDRD) Af Amer Est GFR (MDRD) Non-Af BUN/Creatinine Ratio Glucose Calcium Troponin I POC Glucose 106 09/29/19 09:30 WBC RBC Hgb Hct MCV MCH MCHC RDW Std Deviation RDW Coeff of Ion Plt Count MPV Immature Gran % (Auto) Neut % (Auto) Lymph % (Auto) [place] % (Auto) Eos % (Auto) Baso % (Auto) Absolute Neuts (auto) Absolute Lymphs (auto) Nucleated RBC % PT INR APTT Sodium 141 Potassium 4.1 Chloride 108 H Carbon Dioxide 29.0 Anion Gap 4 L BUN 17 Creatinine 0.82 Estim Creat Clear Calc 70.09 Est GFR (MDRD) Af Amer 95 Est GFR (MDRD) Non-Af 78 BUN/Creatinine Ratio 20.8 H Glucose 114 H Calcium 9.2 Troponin I < 0.015 POC Glucose - Rhythm Strip Rhythm Strip: Sinus Rhythm Rate: 81 Ectopy: None - EKG Initial EKG Interpretation: Sinus Rhythm, - - Normal sinus rhythm at a rate of 81 Normal intervals Normal axis Normal ST segments - Medical Decision Making Stroke Team Activated: Yes Reviewed Inclusion/Exclusion criteria: Yes Was Patient considered for Endovascular Intervention?: No IV Alteplase (t-PA) Administered: No - NIH only 1 Patient is evaluated for sudden onset of left-sided paresthesias and subjective weakness of her left thigh. He felt a headache. Patient donated initially is 1 for subjective paresthesias of the left face and arm. Stroke alert is called. Fingerstick blood glucose is 106. Patient is otherwise well-appearing. CT brain does not show any acute bleed or other acute process. Patient is evaluated by [facility] tele-stroke and neurologist is in agreement that patient not require TPA. He does request a CTA to look for LDL. This is negative. Patient elects to stay at [facility] she does not want to go to [place] for further evaluation. She is given aspirin in the emergency room. Patient's headache does return and she is given a dose of Toradol after negative imaging. Other work-up is negative. Patient be admitted for further stroke evaluation. Is possible this is an atypical migraine/complex migraine however patient does not have a history of this. Patient stable and agreeable at time of disposition. ED Disposition - Plan for ED Patient: Disposition: Acute Care Hospital [facility] Diagnosis: Facial paresthesia, Arm paresthesia, left, Headache Referrals: Ger Butcher MD [Primary Care Provider] -
--- NOTE | 2019-09-29 09:31 | NURSING ---
FACESHEET FAXED TO [facility]
--- NOTE | 2019-09-29 09:38 | ED.RN ---
DR ONEILL BEAMED IN FOR EXAM.
[2019-09-29 09:41] LABS: Bedside Glucose 106 mg/dL (70-110)
[2019-09-29 09:48] LABS: Absolute Lymphocyte Count 1.13 X10^3/uL (0.83-4.51); Absolute Neutrophil Count 8.7 X10^3/uL (2.0-7.7); Basophil# 0.02 X10^3/uL; Basophil% 0.2 % (0-1); Eosinophil# 0.07 X10^3/uL; Eosinophils% 0.7 % (0-5); Hematocrit 44.2 % (37-47); Lymphocyte # 1.13 X10^3/ul (4.0); Lymphocyte % 10.7 % (19-41); Mean Corp Hgb Conc 33.9 g/dL (32-36); Mean Corpuscular Hgb 30.4 pg (27.0-32.0); Mean Corpuscular Volume 89.5 fL (81-99); Mean Platelet Vol. 8.9 fl (6.2-12.0); Monocyte# 0.59 X10^3/uL; Monocyte% 5.6 % (0-10); NRBC Flagged by Analyzer 0 % (0-5); Neutrophil # 8.73 X10^3/uL (2.7-7.7); Neutrophil % 82.2 % (47-70); Platelet Count 211 K/mm3 (150-450); RBC Distribution Width CV 11.6 % (11.6-14.6); RBC Distribution Width SD 37.3 fl (35.1-43.9); Red Blood Count 4.94 M/mm3 (4.2-5.4); White Blood Count 10.6 K/mm3 (4.4-11.0)
[2019-09-29 09:58] LABS: Partial Thromboplast Time 26.6 Seconds (24.1-36.2)
[2019-09-29 09:59] LABS: Anion Gap 4 (5-15); BUN 17 mg/dL (7-18); BUN/Creat Ratio 20.8 RATIO (10-20); Calcium,Total 9.2 mg/dL (8.5-10.1); Chloride 108 mmol/L (98-107); Creatinine, Serum 0.82 mg/dL (0.55-1.02); EST Glomerular Filtration Rate 78 mL/min (>60); Est Glom Filt Rate - Afr Amer 95 mL/min (>60); Estimated Creatinine Clearance 70.09 ml/min; Glucose 114 mg/dL (74-106); Potassium 4.1 mmol/L (3.5-5.1); Sodium Level 141 mmol/L (136-145)
--- NOTE | 2019-09-29 10:08 | CT_ITS ---
STUDY: CTA HEAD AND NECK WITH CONTRAST REASON FOR EXAM: Female, 49 years old. FACIAL PARESTHESIAS, STROKE EVAL. RADIATION DOSAGE (If Supplied By Facility): CTDIvol = ( 14.86 ) mGy, DLP = ( 467.09 ) mGycm TECHNIQUE: CT angiography was performed with a multi-detector CT scanner. Data acquisition was obtained from the skull base through the vertex following intravenous administration of 100 CC ISOVUE 370. MIP images were reconstructed from the axial data set. Post-processing of the angiographic images was performed, with multiplanar reformation and 3D reconstruction. Individualized dose optimization techniques were used for this CT. COMPARISON: No relevant priors. FINDINGS: Inhomogeneous enlargement of the right lobe of the thyroid. There is a 1.9 cm x 0.9 cm complex solid and cystic nodule in the right lobe. Correlation with ultrasound is recommended. Normal bilateral petrous carotid arteries. Normal right cavernous carotid artery with a normal supraclinoid bifurcation. Normal left cavernous carotid artery with a normal supraclinoid bifurcation. Normal right A1 segments of the anterior cerebral artery. Normal left A1 segments of the anterior cerebral artery. Normal intact anterior communicating artery (ACOM). Normal bilateral A2 segments of the anterior cerebral arteries. Normal right M1 and M2 segments of the middle cerebral arteries, with a normal M1 bifurcation. Normal left M1 and M2 segments of the middle cerebral arteries, with a normal M1 bifurcation. Normal right posterior communicating artery (PCOM). Normal left posterior communicating artery (PCOM). Normal bilateral vertebral arteries. Normal basilar artery with a normal basilar bifurcation. The visualized bilateral superior cerebellar (SCA) arteries are normal. Normal bilateral P1, P2 and visualized P3 segments of the posterior cerebral arteries. There is no demonstrated aneurysm of the [place] of [place]. There is no demonstrated abnormality of the visualized brain. AORTIC ARCH: Normal visualized aortic arch. Normal origins of the brachiocephalic, left common carotid, and left subclavian arteries. RIGHT CAROTID ARTERIES: Normal right common carotid artery (CCA). Normal right common carotid bulb. Normal origin of the right internal carotid (ICA) artery without a hemodynamically significant stenosis. Normal visualized cervical portion of the right internal carotid artery. Normal origin of the right external carotid artery (ECA). LEFT CAROTID ARTERIES: Normal left common carotid artery (CCA). Normal left common carotid bulb. Normal origin of the left internal carotid (ICA) artery without a hemodynamically significant stenosis. Normal visualized cervical portion of the left internal carotid artery. Normal origin of the left external carotid artery (ECA). VERTEBRAL ARTERIES: There is enhancement within the bilateral vertebral arteries with a small left vertebral artery, and a dominant right vertebral artery. CT/CTA Head AND Neck W/ Contrast IMPRESSION: Normal CTA Head and neck with contrast. Electronically Signed: Evaristo Newby, at 10:55 EST , Service support ,
--- NOTE | 2019-09-29 10:22 | RAD_ITS ---
STUDY: X-RAY CHEST REASON FOR EXAM: Female, 49 years old. Neuro symptoms. N/T TO LEFT SIDE. TECHNIQUE: Single AP portable view of the chest. COMPARISON: None. FINDINGS: EKG electrodes are seen. The lungs are clear and expanded. There is no demonstrated pleural abnormality. Normal size heart. Normal mediastinum and quynh. Normal visualized pulmonary arteries. Normal visualized aortic arch and descending thoracic aorta. Normal visualized thoracic spine. Normal visualized ribs, clavicles, and shoulders. There is no demonstrated abnormality of the visualized soft tissue structures of the upper abdomen. RAD/Chest 1 View IMPRESSION: Normal x-ray examination of the chest. Electronically Signed: Evaristo Newby, at 10:56 EST , Service support ,
[2019-09-29] MEDS: Ondansetron 4 MG/2 ML Vial IV (10:40)
--- NOTE | 2019-09-29 11:15 | HP.PCM_ITS ---
History of Present Illness Date of Admission: 09/29/19 Chief Complaint: left facial and arm numbness The patient is a 49 year old F with a past medical history of hyperlipidemia and depression. She was admitted through the ED on 09/29/2019 with a complaint of left facial numbness and left upper extremity numbness. Patient states that last known well was around 6:30 AM this morning when she woke up with a headache and neck pain. She states the neck pain is chronic and she has been undergoing physical therapy for it. She denied any blurred vision or double vision. Subsequently she noted that the left side of her face was numb and her left arm was also numb and heavy. She denied any weakness or numbness in her lower extremities and denied a history of a stroke. She denied any dizziness or lightheadedness. She does have a family history of stroke but does have a family history of hyperlipidemia. She therefore decided to come into the ED where NIH stroke scale was 1 at time of arrival. Stroke alert was called and she was reviewed by [facility] team. Brain CT done showed normal unenhanced CT of the brain and CTA of the head and neck was normal. Symptoms had resolved at time of review. She has been admitted to be managed for TIA. Past Medical History Medical History: Medical History (Last Reviewed 05/21/19 @ 10:02 by Jennifer Rhodes) Anxiety and depression F41.8 Back problem M53.9 GERD (gastroesophageal reflux disease) K21.9 Hypercholesterolemia E78.00 Melanoma C43.9 history of melanoma removed off of wrist Allergies venlafaxine [From Effexor] Allergy (Intermediate, Verified 09/29/19 09:38) skin crawling makes her feel like skin is crawling Home Medications: Ambulatory Orders Medication Instructions Recorded bupropion HCl 150 mg 24 hr tablet, 150 mg PO QAM 10/13/17 extended release atorvastatin 10 mg tablet 10 mg PO DAILY 09/23/18 estradiol-norethindrone acet 0.5 1 tab PO QDAY #84 tab 10/18/18 mg-0.1 mg tablet Surgical History: noncontributory Psychiatric History: Anxiety, Depression Lives: Spouse/ Significant Other Smoking Status: Never smoker Alcohol: None Drugs: None - *Family History Maternal Family History: Family History (Last Reviewed 05/21/19 @ 10:02 by Jennifer Rhodes) Mother Arthritis Mother Heart disease Hypertension Father Heart disease Hypertension High cholesterol Review of Systems Constitutional: Denies: Chills, Fever, Night Sweats, Weight Change Eyes: Denies: Blurred vision, Double vision HEENT: Denies: Head Aches, Sinus Congestion, Sinus Drainage Cardiovascular: Reports: Light Headedness. Denies: Chest Pain, Palpitations Respiratory: Denies: Cough, Shortness of breath at rest, Sputum production Gastrointestinal: Denies: Abdominal Pain, Nausea, Vomiting Genitourinary: Denies: Dysuria Musculoskeletal: Denies: Joint Pain, Joint Tenderness Skin: Denies: Rash, Wounds Neurological: Reports: Headaches, Numbness, Tingling. Denies: Balance problems, Blurred vision, Double vision, Change in Speech, Slurred speech, Confusion, Di fficulty swallowing, Focal weakness, Incoordination, Tremor, Seizures Hematologic/ Lymphatic: Denies: Easy Bruising, Easy Bleeding VTE Information - Inpt Only VTE Present on Admission: No VTE Pharm Prophylaxis ordered?: Yes Patient Problems: Active and Suspected Problems (Last Reviewed 05/21/19 @ 10:02 by Jennifer Rhodes) Facial paresthesia (Acute) Arm paresthesia, left (Acute) Headache (Acute) - Physical Exam Vitals/I&O's: Vital Signs Temp Pulse Resp BP Pulse Ox 106 F H 80 15 143/84 H 97 09/29/19 09:21 09/29/19 11:00 09/29/19 11:00 09/29/19 11:00 09/29/19 11:00 Oxygen Delivery Method Room Air Weight: 121 lb 0.54 oz Body Mass Index (BMI) 20.7 Finger Stick Blood Glucose 106 General: Alert, Oriented x3, Cooperative, No apparent distress, - HEENT: Atraumatic, PERRLA, EOMI, Normocephalic Oral: Dry Mucosa Neck: Supple, No JVD, Negative Carotid Bruits Lungs: Clear to auscultation, Normal air movement, No rhonchi, No wheeze Cardiovascular: Regular rate, Regular Rhythm, Normal S1, Normal S2, No murmurs Abdomen: Bowel Sounds Present, Soft, Non Tender, Non-Distended, No Hepato- splenomegaly Extremities: No clubbing, No cyanosis, No edema, Capillary Refill Less than 3 Seconds Skin: No rashes, No breakdown Musculoskeletal: No Tenderness to Palpation of Joints or Extremities Lymphatic: No Cervical, Supraclavicular, or Inguinal Adenopathy Neurological: Cranial nerves II-XII grossly intact, Neuro grossly intact, Motor Exam 5/5 strength throughout, Muscle tone normal, Sensory exam intact to light touch and pain, Coordination normal, - - NIHSS-0 Psych/Mental Status: Anxious, Alert and oriented to time, place, person, mood and affect Laboratory Results 09/29/19 09:29: POC Glucose 106 09/29/19 09:30: WBC 10.6, RBC 4.94, Hgb 15.0, Hct 44.2, MCV 89.5, MCH 30.4, MCHC 33.9, RDW Std Deviation 37.3, RDW Coeff of Ion 11.6, Plt Count 211, MPV 8.9, Immature Gran % (Auto) 0.600, Neut % (Auto) 82.2 H, Lymph % (Auto) 10.7 L, Dubois % (Auto) 5.6, Eos % (Auto) 0.7, Baso % (Auto) 0.2, Absolute Neuts (auto) 8.7 H, Absolute Lymphs (auto) 1.13, Nucleated RBC % 0 09/29/19 09:30: PT 13.0, INR 1.0, APTT 26.6 09/29/19 09:30: Sodium 141, Potassium 4.1, Chloride 108 H, Carbon Dioxide 29.0, Anion Gap 4 L, BUN 17, Creatinine 0.82, Estim Creat Clear Calc 70.09, Est GFR (MDRD) Af Amer 95, Est GFR (MDRD) Non-Af 78, BUN/Creatinine Ratio 20.8 H, Glucose 114 H, Calcium 9.2, Troponin I < 0.[address] 09/29/19 09:24 IMPRESSION: Normal unenhanced CT scan of the brain. N.B. : The above information has been verbally conveyed by Evaristo Newby to Dr Kellie MD, on 09/29/2019 09:35:43 (ET). Electronically Signed: Evaristo Newby, at 9:36 EST , Service support , ADDENDUM: 09/29/19 0943 IMPRESSION: Normal unenhanced CT scan of the brain. N.B. : The above information has been verbally conveyed by Evaristo Newby to Dr Kellie MD, on 09/29/2019 09:35:43 (ET). Electronically Signed: Evaristo Newby, at 9:36 EST , Service support , Head/Neck CTA 09/29/19 10:08 IMPRESSION: Normal CTA Head and neck with contrast. Electronically Signed: Evaristo Newby, at 10:55 EST , Service support , Chest X-Ray 09/29/19 10:22 IMPRESSION: Normal x-ray examination of the chest. Electronically Signed: Evaristo Newby, at 10:56 EST , Service support , Assessment/Plan All Active Problems (Last Reviewed 05/21/19 @ 10:02 by Jennifer Rhodes) Facial paresthesia (Acute) Arm paresthesia, left (Acute) Headache (Acute) Sinusitis, acute maxillary (Acute) Postmenopausal HRT (hormone replacement therapy) (Acute) Fibrocystic breast (Acute) Nontoxic multinodular goiter (Acute) 49 y/o female admitted with a complaint of left sided facial numbness and LUE numbness and weakness. 1. TIA * Admit to PCU with telemetry. Symptoms had resolved at time of review. * On admission in the ED, NIH stroke scale was 1 by the time I reviewed her, NIH stroke scale was 0. * CT of the brain was negative and CT a of the head and neck was also normal. * P.o. aspirin 81 mg daily. Continue statin. Check lipid panel. Check A1c. * Consult PT OT * To get MRI of the brain and MRA of the head and neck. 2D echo. * Fall precautions. * Patient on oral contraceptive pill. Will need to stop taking this as this is a risk factor for stroke. * keep BP<130/80 * if MRI is positive, will consult neurology * 2. Hyperlipidemia: On statin 3. CHronic neck pain * has been undergoing PT/OT for chronic neck pain. * will get cervical spine MRI. Patient has severe claustrophobia, and says she is to schedule an outpatient MRI of her neck; however since she is having an MRI of the brain, will do the MRI of the cervical spine also. * 3. Depression: On bupropion. DVT prophylaxis; lovenox Code Visit OBSV E&M: 17520 Initial observation care L2
--- NOTE | 2019-09-29 11:24 | NURSING ---
PCU [facility] LEFT FACIAL PARESTHESI[facility]
[2019-09-29] MEDS: Aspirin 325 MG Tablet PO (11:40)
[2019-09-29] MEDS: Ketorolac 15 MG/ML Vial IV (11:40)
--- NOTE | 2019-09-29 13:19 | MRI_ITS ---
STUDY: MRI BRAIN WITHOUT CONTRAST REASON FOR EXAM: Female, 49 years old. TIA, N/T and weakness, LEFT upper extremity. Chronic neck pain TECHNIQUE: Standardized multiplanar fat and water weighted pulse sequences were obtained. COMPARISON: CT of the brain September 29, 2019 FINDINGS: Normal size of the ventricles and extra-axial spaces for the patient''s age. Normal white matter tracts of the supratentorial brain. Normal bilateral basal ganglia. Normal thalami. There is no extra-axial fluid accumulation. Normal flow voids within the major intracranial circulation suggesting patency by spin echo criteria. Normal sella turcica, pituitary gland, infundibular stalk, optic chiasm and hypothalamus. Normal tectal plate and pineal gland. Normal midbrain, eron and medulla. Normal cerebellum. Normal basal cisterns. Normal bilateral temporal bones. Normal bilateral internal auditory canals. No demonstrated orbital abnormality, within the constraints of a routine brain study. Normal visualized paranasal sinuses. Normal calvarium and skull base. Normal visualized soft tissue structures. Normal visualized upper cervical spine. MRI/Brain without Contrast IMPRESSION: Normal unenhanced MRI of the brain. Electronically Signed: Yuri Gay MD at 16:05 EST , Service support ,
--- NOTE | 2019-09-29 13:19 | ECHOD_ITS ---
Reason For Study: TIA/CVA Procedure This was a 2D Doppler, Color Flow transthoracic echocardiogram. The exam was of adequate technical quality. Exam performed portable in patient room. Left Ventricle Normal LV size. Left ventricular systolic function is normal. The estimated ejection fraction is 65 %. No evidence for diastolic dysfunction. No regional wall motion abnormalities noted. Right Ventricle Normal RV size. Normal systolic function. Atria Normal left atrium. Normal right atrium. No doppler evidence for ASD. Bubble contrast study negative for right to left interatrial shunt. Mitral Valve There is no mitral annular calcification. Equivocal mitral valve prolapse. Trivial mitral valve insufficiency. Tricuspid Valve Normal tricuspid valve. Mild tricuspid valve insufficiency. Right ventricular systolic pressure estimated to be 21 mmHg. Aortic Valve Trisinus/trileaflet aortic valve. Normal aortic valve. Pulmonic Valve The pulmonic valve is not well visualized. Trivial pulmonic valve insufficiency. Great Vessels Normal sized aortic root. Pericardium/Pleural No pericardial effusion. Medication Performed a rapid injection of agitated mix of 9 cc saline and 1cc air to assess for atrial septal defect. MMode/2D Measurements & Calculations LVIDd: 4.1 cm IVSd: 0.86 cm Ao root diam: 2.5 cm LVIDs: 3.1 cm LVPWd: 0.70 cm RVDd: 2.3 cm FS: 25.4 % LAV(MOD-bp): 25.7 ml LVAd ap4: 20.7 cm2 SV(MOD-sp4): 30.9 ml LAV(MOD-bp) Indexed: 15.9 ml/m2 EDV(MOD-sp4): 50.0 ml LAV(MOD-sp2): 29.4 ml EDV(sp4-el): 50.7 ml LAV(MOD-sp4): 22.7 ml LVAs ap4: 11.5 cm2 ESV(MOD-sp4): 19.0 ml ESV(sp4-el): 18.2 ml EF(MOD-sp4): 61.9 % EF(sp4-el): 64.0 % SV(sp4-el): 32.4 ml LA A4 area: 11.4 cm2 LA dimension(2D): 2.4 cm RA A4 area: 10.0 cm2 Doppler Measurements & Calculations MV E max sebastian: 70.6 cm/sec Lat Peak E' Sebastian: 12.8 cm/sec Med Peak E' Sebastian: 8.6 cm/sec MV A max sebastian: 58.8 cm/sec E/E' lat: 5.5 E/E' med: 8.2 MV E/A: 1.2 Ao V2 max: 135.3 cm/sec LV V1 max: 92.2 cm/sec PA V2 max: 80.8 cm/sec Ao max P.3 mmHg LV V1 max P.4 mmHg Ao V2 mean: 95.1 cm/sec Ao mean P.9 mmHg Ao V2 VTI: 27.7 cm TR max sebastian: 210.7 cm/sec TR max P.8 mmHg Interpretation Summary Left ventricular systolic function is normal. The estimated ejection fraction is 65 %. Equivocal mitral valve prolapse. Trivial mitral valve insufficiency. Mild tricuspid valve insufficiency. Trivial pulmonic valve insufficiency. Right ventricular systolic pressure estimated to be 21 mmHg. No evidence for diastolic dysfunction. Ordering Physician: Rita Beckford Referring Physician: Ger Butcher Performed By: Darling Boyd, REMA, RVT
--- NOTE | 2019-09-29 13:42 | MRI_ITS ---
STUDY: MRI CERVICAL SPINE WITHOUT CONTRAST REASON FOR EXAM: Female, 49 years old. LUE numbness/weakness chronic neck pain TECHNIQUE: Standardized fat and water weighted pulse sequences were obtained in the sagittal and axial planes. COMPARISON: Cervical spine films March 10, 2011 FINDINGS: Normal foramen magnum and brainstem-cervical cord junction. Normal craniovertebral junction. Normal anterior atlantoaxial articulation. Normal odontoid process. Decreased cervical lordosis. Normal vertebral bodies and posterior osseous elements. C2-3: Normal endplates. Normal disc height, signal and morphology. Normal central canal and intervertebral neural foramina. C3-4: Normal endplates. Normal disc height, signal and tiny right foraminal disc protrusion. Normal central canal. Mild right neuroforaminal encroachment secondary to disc and bony hypertrophy... C4-5: Normal endplates. Normal disc height, signal and minor bulging of the disc.. Normal central canal and intervertebral neural foramina. C5-6: Mild endplate spurring.. Normal disc height, signal and minor bulging of the disc.. Mild narrowing of the central canal. Normal bilateral intervertebral neural foramina. Small perineural cyst is noted in the right nerve root foramen. C6-7: Minor endplate spurring.. Normal disc height, signal and tiny left foraminal disc protrusion.. Normal central canal. There is mild left neural foraminal encroachment secondary to disc and bony hypertrophy. Small perineural cyst is seen in both neuroforamina. C7-T1: Normal endplates. Normal disc height, signal and morphology. Normal central canal and intervertebral neural foramina. Normal cervical cord. Normal visualized soft tissue structures. MRI/Spine Cervical (Routine) IMPRESSION: No evidence for acute fracture or subluxation. Mild spondylosis. Multilevel spinal stenosis secondary to disc disease and bony hypertrophy. Electronically Signed: Yuri Gay MD at 16:48 EST , Service support ,
[2019-09-29] MEDS: LORazepam 1 MG Tablet PO (13:47)
[2019-09-29] MEDS: Acetaminophen 325 MG Tablet 650 MG PO (13:54)
[2019-09-29 14:41] LABS: Hemoglobin A1c 5.6 % (4.2-6.3)
[2019-09-29] MEDS: LORazepam 2 MG/ML Syringe 1 MG IV (14:50)
[2019-09-29] MEDS: Atorvastatin Calcium 10 MG Tablet PO (21:23)
[2019-09-30] VITALS (7 sets, daily range): BP systolic 102–113; BP diastolic 56–65; PULSE 65–80; RESP 14–18; TEMP 36.7–36.9; O2SAT 96–97; BMI 22.0
[2019-09-30 06:02] LABS: Absolute Lymphocyte Count 1.98 X10^3/uL (0.83-4.51); Absolute Neutrophil Count 3.5 X10^3/uL (2.0-7.7); Basophil# 0.02 X10^3/uL; Basophil% 0.3 % (0-1); Eosinophil# 0.22 X10^3/uL; Eosinophils% 3.5 % (0-5); Hematocrit 41.2 % (37-47); Hemoglobin 13.8 g/dL (12.0-15.0); Lymphocyte # 1.98 X10^3/ul (4.0); Lymphocyte % 31.2 % (19-41); Mean Corp Hgb Conc 33.5 g/dL (32-36); Mean Corpuscular Volume 89.6 fL (81-99); Mean Platelet Vol. 8.9 fl (6.2-12.0); Monocyte# 0.63 X10^3/uL; Monocyte% 9.9 % (0-10); NRBC Flagged by Analyzer 0 % (0-5); Neutrophil # 3.47 X10^3/uL (2.7-7.7); Neutrophil % 54.8 % (47-70); Platelet Count 196 K/mm3 (150-450); RBC Distribution Width CV 11.7 % (11.6-14.6); RBC Distribution Width SD 37.6 fl (35.1-43.9); White Blood Count 6.3 K/mm3 (4.4-11.0)
[2019-09-30 06:26] LABS: BUN 14 mg/dL (7-18); Creatinine, Serum 0.83 mg/dL (0.55-1.02); EST Glomerular Filtration Rate 77 mL/min (>60); Estimated Creatinine Clearance 69.24 ml/min; Glucose 94 mg/dL (74-106)
[2019-09-30 06:27] LABS: Anion Gap 3 (5-15); BUN/Creat Ratio 16.9 RATIO (10-20); Calcium,Total 8.6 mg/dL (8.5-10.1); Chloride 107 mmol/L (98-107); Est Glom Filt Rate - Afr Amer 94 mL/min (>60); Potassium 4.5 mmol/L (3.5-5.1); Sodium Level 140 mmol/L (136-145)
[2019-09-30] MEDS: Aspirin 81 MG TAB.CHEW PO (09:52)
[2019-09-30] MEDS: buPROPion (XL) 150 MG TABLET.XL PO (09:52)
[2019-09-30] MEDS: Ondansetron 4 MG/2 ML Vial IV (11:54)
--- NOTE | 2019-09-30 11:56 | DCINST_ITS ---
- Discharge Diagnoses Current Active Problems: Current Active and Chronic Problems (Last Reviewed 05/21/19 @ 10:02 by Jennifer Rhodes) TIA versus atypical migraine You will use the following diet at home:: No restrictions Discharge Activity: Return to Normal Activity Call your doctor if you observe: Shortness of breath, Dizziness, Fainting spells, Chest pain Allergies/Adverse Reactions: Allergies venlafaxine [From Effexor] Allergy (Intermediate, Verified 09/29/19 09:38) skin crawling makes her feel like skin is crawling Medications to take at Discharge bupropion HCl 150 mg 24 hr tablet, extended release 150 mg PO QAM 10/13/17 estradiol-norethindrone acet 0.5 mg-0.1 mg tablet 1 tab PO QDAY #84 tab 10/18/18 Aspirin [Aspirin, Baby] 81 mg PO DAILY@0800 #30 tab.chew 09/30/19 Atorvastatin Calcium [Lipitor] 40 mg PO QHS #30 tab 09/30/19 The following prescriptions were given: Aspirin [Aspirin, Baby] 81 mg PO DAILY@0800 #30 tab.chew Transmission Status: Pending to [facility]/pharmacy #[id number] Atorvastatin Calcium [Lipitor] 40 mg PO QHS #30 tab Transmission Status: Pending to [facility]/pharmacy #[id number] Primary Care Physician: Ger Butcher MD [Primary Care Provider] - Please follow up with your Primary Care Physician in: 1 Week Test Results: Test results from this visit will be discussed in further detail at your follow- up appointment, if applicable. Please Follow Up With: El Hernandez MD When: 1 Week Proposed Discharge Date: 09/30/19
[2019-09-30] MEDS: Meclizine HCl 25 MG Tablet PO (12:43)
--- NOTE | 2019-09-30 13:19 | PCM.DC.SUM ---
<Sarita Shen - Last Filed: 09/30/19 13:24> Discharge Date and Diagnosis Date of Admission: 09/29/19 Date of Discharge: 09/30/19 - Primary Discharge Diagnosis Active and Suspected Problems (Last Reviewed 05/21/19 @ 10:02 by Jennifer Rhodes) 1. TIA versus atypical migraine 2. Hyperlipidemia 3. Chronic neck pain 4. Depression Hospital Course and Treatment Imaging Results: Diagnostic Data Brain CT 09/29/19 09:24 IMPRESSION: Normal unenhanced CT scan of the brain. N.B. : The above information has been verbally conveyed by Evaristo Newby to Dr Kellie MD, on 09/29/2019 09:35:43 (ET). Electronically Signed: Evaristo Newby, at 9:36 EST , Service support , ADDENDUM: 09/29/19 0943 IMPRESSION: Normal unenhanced CT scan of the brain. N.B. : The above information has been verbally conveyed by Evaristo Newby to Dr Kellie MD, on 09/29/2019 09:35:43 (ET). Electronically Signed: Evaristo Newby, at 9:36 EST , Service support , Head/Neck CTA 09/29/19 10:08 IMPRESSION: Normal CTA Head and neck with contrast. Electronically Signed: Evaristo Newby, at 10:55 EST , Service support , Chest X-Ray 09/29/19 10:22 IMPRESSION: Normal x-ray examination of the chest. Electronically Signed: Evaristo Newby, at 10:56 EST , Service support , Brain MRI 09/29/19 13:19 IMPRESSION: Normal unenhanced MRI of the brain. Electronically Signed: Yuri Gay MD at 16:05 EST , Service support , Cervical Spine MRI 09/29/19 13:42 IMPRESSION: No evidence for acute fracture or subluxation. Mild spondylosis. Multilevel spinal stenosis secondary to disc disease and bony hypertrophy. Electronically Signed: Yuri Gay MD at 16:48 EST , Service support , Neurology Operations: None Procedures: 2-D Echocardiogram Summary of Care Provided: The patient is a 49 year old F admitted 09/29/2019 due to left facial and arm numbness and headache. 1. TIA versus atypical migraine-patient reports severe headache prior to onset of left facial and arm numbness. Still has mild residual left facial numbness. Telestroke consult placed and suspects TIA. MRI of brain negative. CTA of head and neck unremarkable. Echocardiogram pending and will be reviewed prior to discharge. Continue aspirin, statin at discharge. Follow-up with neurology, Dr. Hernandez in 1 week. 2. Hyperlipidemia-statin increased to 40 mg p.o. nightly. 3. Chronic neck pain-MRI of cervical spine shows no evidence of acute fracture or subluxation, mild spondylosis, multilevel spinal stenosis. Continue outpatient follow-up. 4. Depression-continue bupropion regimen. Patient seen and examined prior to discharge. Physical assessment as noted below. Patient is stable for discharge with follow up recommendations as noted above. This patient was seen by LÓPEZ Lanier under the supervision of Dr. Delgado. - Physical Exam Vitals/I&O's: Vital Signs Temp Pulse Resp BP Pulse Ox 98.4 F 80 16 102/56 L 97 09/30/19 09:45 09/30/19 11:30 09/30/19 09:45 09/30/19 09:45 09/30/19 09:45 Oxygen Delivery Method Room Air Weight: 128 lb 8.472 oz Body Mass Index (BMI) 22.0 Finger Stick Blood Glucose 106 Intake and Output for Last 24 Hours 01/30/20 01/31/20 02/01/20 23:59 23:59 23:59 Intake Total 240 / 240 Balance 240 / 240 Laboratory Results 09/29/19 09:30: Hemoglobin A1c 5.6 09/30/19 05:33: WBC 6.3, RBC 4.60, Hgb 13.8, Hct 41.2, MCV 89.6, MCH 30.0, MCHC 33.5, RDW Std Deviation 37.6, RDW Coeff of Ion 11.7, Plt Count 196, MPV 8.9, Immature Gran % (Auto) 0.300, Neut % (Auto) 54.8, Lymph % (Auto) 31.2, [place] % (Auto) 9.9, Eos % (Auto) 3.5, Baso % (Auto) 0.3, Absolute Neuts (auto) 3.5, Absolute Lymphs (auto) 1.98, Nucleated RBC % 0 09/30/19 05:33: Sodium 140, Potassium 4.5, Chloride 107, Carbon Dioxide 30.0, Anion Gap 3 L, BUN 14, Creatinine 0.83, Estim Creat Clear Calc 69.24, Est GFR (MDRD) Af Amer 94, Est GFR (MDRD) Non-Af 77, BUN/Creatinine Ratio 16.9, Glucose 94, Calcium 8.6 Current Medications Acetaminophen (Tylenol) 650 mg PO Q6H PRN PRN PRN Reason: Pain Score 1-10/10 Last Admin: 09/29/19 13:54 Dose: 650 mg Documented by: Aspirin (Aspirin, Baby) 81 mg PO DAILY@0800 [facility] Last Admin: 09/30/19 09:52 Dose: 81 mg Documented by: Atorvastatin Calcium (Lipitor) 10 mg PO QHS [facility] Last Admin: 09/29/19 21:23 Dose: 10 mg Documented by: Bupropion HCl (Wellbutrin Xl) 150 mg PO QAM [facility] Last Admin: 09/30/19 09:52 Dose: 150 mg Documented by: Enoxaparin Sodium (Lovenox) 40 mg SC DAILY [facility] Last Admin: 09/30/19 09:51 Dose: Not Given Documented by: Glucagon () 1 mg IM .X1 PRN PRN Reason: Hypoglycemia Dextrose (Dextrose 10%-Water) 250 mls @ 999 mls/hr IV .Q16M PRN; Protocol PRN Reason: HYPOGLYCEMIA Ondansetron HCl (Zofran) 4 mg IV Q8H PRN PRN PRN Reason: NAUSEA/VOMITING Last Admin: 09/30/19 11:54 Dose: 4 mg Documented by: Sodium Chloride () 10 - 40 ml IV UD PRN PRN Reason: SALINE FLUSH Discharge Diet: No Restrictions Discharge Activity: Return to Normal Activity Call your doctor if you observe: Shortness of breath, Dizziness, Fainting spells, Chest pain Home Medications: Medications to take at Discharge bupropion HCl 150 mg 24 hr tablet, extended release 150 mg PO QAM 10/13/17 estradiol-norethindrone acet 0.5 mg-0.1 mg tablet 1 tab PO QDAY #84 tab 10/18/18 Aspirin [Aspirin, Baby] 81 mg PO DAILY@0800 #30 tab.chew 09/30/19 Atorvastatin Calcium [Lipitor] 40 mg PO QHS #30 tab 09/30/19 Following Prescrptions Were Given to Patient: Aspirin [Aspirin, Baby] 81 mg PO DAILY@0800 #30 tab.chew Transmission Status: Received by [id number] Atorvastatin Calcium [Lipitor] 40 mg PO QHS #30 tab Transmission Status: Received by [id number] Primary Care Physician: Ger Butcher MD [Primary Care Provider] - Please follow up with your Primary Care Physician in: 1 Week Please Follow Up With: El Hernandez MD When: 1 Week Disposition: Home Minutes spent on discharge:: 35 Patient Condition:: Stable Medical Necessity - Tobacco Use Smoking Status: Never smoker Meaningful Use Info Meaningful Use Diagnoses (Choose all that apply): None applicable <Quan Delgado F - Last Filed: 09/30/19 15:17> Hospital Course and Treatment Summary of Care Provided: The patient is a 49 year old F [] - Physical Exam Vitals/I&O's: Vital Signs Temp Pulse Resp BP Pulse Ox 98.3 F 78 18 113/64 96 09/30/19 14:30 09/30/19 14:30 09/30/19 14:30 09/30/19 14:30 09/30/19 14:30 Oxygen Delivery Method Room Air Weight: 128 lb 8.472 oz Body Mass Index (BMI) 22.0 Finger Stick Blood Glucose 106 Intake and Output for Last 24 Hours 09/28/19 09/29/19 09/30/19 23:59 23:59 23:59 Intake Total 240 / 240 Balance 240 / 240 Laboratory Results 09/30/19 05:33: WBC 6.3, RBC 4.60, Hgb 13.8, Hct 41.2, MCV 89.6, MCH 30.0, MCHC 33.5, RDW Std Deviation 37.6, RDW Coeff of Ion 11.7, Plt Count 196, MPV 8.9, Immature Gran % (Auto) 0.300, Neut % (Auto) 54.8, Lymph % (Auto) 31.2, [place] % (Auto) 9.9, Eos % (Auto) 3.5, Baso % (Auto) 0.3, Absolute Neuts (auto) 3.5, Absolute Lymphs (auto) 1.98, Nucleated RBC % 0 09/30/19 05:33: Sodium 140, Potassium 4.5, Chloride 107, Carbon Dioxide 30.0, Anion Gap 3 L, BUN 14, Creatinine 0.83, Estim Creat Clear Calc 69.24, Est GFR (MDRD) Af Amer 94, Est GFR (MDRD) Non-Af 77, BUN/Creatinine Ratio 16.9, Glucose 94, Calcium 8.6 Current Medications Acetaminophen (Tylenol) 650 mg PO Q6H PRN PRN PRN Reason: Pain Score 1-1010 Last Admin: 09/29/19 13:54 Dose: 650 mg Documented by: Aspirin (Aspirin, Baby) 81 mg PO DAILY@0800 [facility] Last Admin: 09/30/19 09:52 Dose: 81 mg Documented by: Atorvastatin Calcium (Lipitor) 10 mg PO QHS [facility] Last Admin: 09/29/19 21:23 Dose: 10 mg Documented by: Bupropion HCl (Wellbutrin Xl) 150 mg PO QAM [facility] Last Admin: 09/30/19 09:52 Dose: 150 mg Documented by: Enoxaparin Sodium (Lovenox) 40 mg SC DAILY [facility] Last Admin: 09/30/19 09:51 Dose: Not Given Documented by: Glucagon () 1 mg IM .X1 PRN PRN Reason: Hypoglycemia Dextrose (Dextrose 10%-Water) 250 mls @ 999 mls/hr IV .Q16M PRN; Protocol PRN Reason: HYPOGLYCEMIA Ondansetron HCl (Zofran) 4 mg IV Q8H PRN PRN PRN Reason: NAUSEA/VOMITING Last Admin: 09/30/19 11:54 Dose: 4 mg Documented by: Sodium Chloride () 10 - 40 ml IV UD PRN PRN Reason: SALINE FLUSH Code Visit Addendum: Dr. Delgado I personally examined the patient and reviewed the chart. I agree with the above. 49-year-old female who presented with left-sided numbness and weakness. She said that this was going on in the presence of a headache however there was some concern for stroke given her family history of significant cardiac disease. She had MRI which was negative for a stroke as well as a head and neck CTA which was negative for any large vessel occlusion. Tele-stroke from [facility] was consulted and felt that this was likely a TIA. Given her headache history is also possibility of complex migraine. She was started on Lipitor and aspirin and is stable for discharge home today. The risks and benefits of discharge were discussed with the patient and her . OBSV E&M: 79116 Observation care discharge
== END 2019-09-30 11:56 | disposition home or self-care (01) ==
LOC: ED 11:34 → PCU 12:33
PROVIDERS: Admitting Provider Student in an Organized Health Care Education/Training Program; Emergency Provider Emergency Medicine; PCP Family Medicine; Visit Provider Family Medicine
DX: R51 Headache (principal); R20.2 Paresthesia of skin; R53.1 Weakness; E78.5 Hyperlipidemia, unspecified; F41.9 Anxiety disorder, unspecified; G89.29 Other chronic pain; F32.9 Major depressive disorder, single episode, unspecified; R29.701 NIHSS score 1; K21.9 Gastro-esophageal reflux disease without esophagitis; Z79.899 Other long term (current) drug therapy; Z85.820 Personal history of malignant melanoma of skin
CPT/HCPCS: 36415; 70450; 70496; 70498; 70551; 71045; 72141; 80048; 82962; 83036; 84484; 85025; 85610; 85730; 93005; 93306; 94762; 96374; 96375; 96376; 99218; 99283; Q9967; A4216; G0378; J2405

== ENCOUNTER → 2019-10-19 | Outpatient (CLI) | payer OTHER, SELFPAY ==
[2019-10-19 10:58] VITALS: BMI 22.0
[2019-10-27 00:25] LABS: HPV APTIMA, High Risk Negative (Negative)
== END | disposition home or self-care (01) ==
LOC: LABSPEC 15:40
PROVIDERS: PCP Family Medicine; Referring Provider Nurse Practitioner Women's Health; Visit Provider Nurse Practitioner Women's Health
DX: Z12.4 Encounter for screening for malignant neoplasm of cervix (principal)
CPT/HCPCS: 87624; 88175; G0145

== ENCOUNTER → 2019-10-26 10:13 | Outpatient (CLI) | payer OTHER, SELFPAY ==
[2019-10-19 10:58] VITALS: BMI 22.0
[2019-10-26 11:22] LABS: Vitamin B12 639 pg/mL (211-911); Vitamin D,25 Hydroxy 28.1 ng/mL
[2019-10-26 11:25] LABS: Thyroid Stim Hormone (TSH) 1.29 uIU/mL (0.358-3.74)
== END ==
PROVIDERS: PCP Family Medicine; Referring Provider Family Medicine; Visit Provider Family Medicine
DX: R53.83 Other fatigue (principal)
CPT/HCPCS: 36415; 82306; 82607; 84443

== ENCOUNTER → 2019-11-07 09:19 | Outpatient (CLI) | payer OTHER, SELFPAY ==
[2019-09-30 10:12] VITALS: BMI 22.0
[2019-10-19 10:58] VITALS: BMI 22.0
--- NOTE | 2019-11-07 09:20 | US_ITS ---
HISTORY: Follow-up nodules. 59 images. 1 and a clip through the right lobe of the thyroid gland. Most recent comparison is from September 20, 2018. Study before that is October 06, 2017. Findings: Thyroid gland is heterogeneous. The right lobe of thyroid gland is larger than the left. The right lobe of thyroid gland measures 5.6 x 2.3 x 1.8 cm. Within the right lobe of the thyroid gland there is a lobular heterogeneous mass. The the mass measures 2.6 x 1.5 x 1.4 cm This mass is solid or almost completely solid. It is hyperechoic to isoechoic. It is tolerable and line. Its margins are lobulated. No calcifications are perceived. It is vascular. Within the right lobe of the thyroid gland slightly more inferiorly there is a second nodule. In similar appearance to the first nodule. It measures 2.7 x 1.5 x 2.4 cm. It is solid or almost completely solid. It is hyperechoic to isoechoic. It is taller than wide. It has lobular margins. It has no associated calcifications. Both of these nodules have a TI-RADS score of 8. The thyroid isthmus is homogeneous at 2 mm. The left lobe of thyroid gland is much more homogeneous. Left lobe of the thyroid gland measures 1.2 x 4.6 x 1.2 cm. Color Doppler imaging demonstrates flow to the left lobe of the thyroid gland. Comparison to the other study demonstrates very similar appearance the right lobe of the thyroid gland and of the left lobe of the thyroid gland. Accounting for differences in cursor placement, measuring the margins of the nodules, and which nodules are measured, I do not appreciate a significant increase in size of nodules on today's study compared to the previous study of September 20, 2018. The October 06, 2017 study was an ultrasound-guided biopsy of the right lobe of thyroid gland US/Thyroid IMPRESSION: Stable appearance of right lobe of thyroid gland thyroid nodules. These nodules are suspicious by their imaging characteristics. Recommend assessment with cytology. Additional comparison imaging is made to February 24, 2016. The appearance of these lesions is similar to that study as well. Almost 4 years of follow-up imaging without change. Recommendations are for at least 1 more year for increased confidence of benignity. at 0601 Reported and signed by: Richard Burroughs MD Electronically Signed: Richard Burroughs MD at 6:00 EDT Tel , Service support ,
== END ==
PROVIDERS: PCP Family Medicine; Referring Provider Surgery; Visit Provider Surgery
DX: E04.2 Nontoxic multinodular goiter (principal)
CPT/HCPCS: 76536

== ENCOUNTER → 2020-02-19 10:11 | Outpatient (CLI) | payer OTHER, SELFPAY ==
[2019-11-22 10:07] VITALS: BMI 20.5
--- NOTE | 2020-02-19 10:12 | BI_ITS ---
MAMMOGRAPHY - BILATERAL SCREENING 3-D TOMOSYNTHESIS REASON FOR EXAM: Female, 50 years old. Routine screening PERTINENT HISTORY: NO FM HX , HRT FROM 2010-SEP 2019, QUIT BECAUSE OF TIA AUG 2019, KNOWN CLUSTER OF SMALL LUMPS IN LEFT BREAST FOR MANY YEARS UNCHANGED. TECHNIQUE: 2-D mammograms and 3-D Tomosynthesis of the breast (s) were performed. CAD was performed. COMPARISON: 02/17/2019 FINDINGS: The breast composition is heterogeneously dense that can obscure small breast masses. Scattered benign calcifications are seen. No dense spiculated masses or suspicious microcalcifications are identified. No architectural distortion is identified. There is no skin thickening or retraction. There has been no significant change since the prior study. BI/SCREEN MAMM (CAD) W/JORGE BILAT IMPRESSION: No mammographic signs of malignancy. Routine yearly mammograms recommended. ASSESSMENT CATEGORY: BIRADS Category 2: Benign. A letter regarding these results will be sent to the patient by the facility within 30 days. FOLLOW UP RECOMMENDATION: Yearly follow up mammogram recommended. (A) Approximately 10% of breast cancers are not detected by mammography. A normal mammogram should not delay biopsy of a clinically suspicious abnormality. Electronically Signed: Bryce Corona MD at 12:10 EDT , Service support ,
== END ==
PROVIDERS: PCP Family Medicine; Referring Provider Nurse Practitioner Women's Health; Visit Provider Nurse Practitioner Women's Health
DX: Z12.31 Encounter for screening mammogram for malignant neoplasm of breast (principal)
CPT/HCPCS: 77063; 77067

== ENCOUNTER → 2020-03-28 12:38 | Outpatient (CLI) | payer OTHER, SELFPAY ==
[2019-11-22 10:07] VITALS: BMI 20.5
--- NOTE | 2020-03-28 12:41 | RAD_ITS ---
STUDY: X-RAY - PARANASAL SINUSES REASON FOR EXAM: Female, 50 years old. SINUS PRESSURE AND CONGESTION WITH HEADACHES. TECHNIQUE: 3 view(s) of the paranasal sinuses were obtained. COMPARISON: None. FINDINGS: Normal visualized frontal, maxillary, ethmoidal and sphenoid sinuses. Normal visualized facial bones. The soft tissue structures are unremarkable. RAD/Sinuses min 3 Views IMPRESSION: Normal x-rays of the paranasal sinuses. Electronically Signed: Evaristo Newby, at 15:23 EDT , Service support ,
--- NOTE | 2020-03-28 12:41 | RAD_ITS ---
STUDY: X-RAY CHEST REASON FOR EXAM: Female, 50 years old. COUGH AND CONGESTION. TECHNIQUE: PA and lateral views of the chest. COMPARISON: None. FINDINGS: Hyperinflation. The lungs are clear. There is no demonstrated pleural abnormality. Normal size heart. Normal mediastinum and quynh. Normal visualized pulmonary arteries. Normal visualized aortic arch and descending thoracic aorta. Normal visualized thoracic spine. Normal visualized ribs, clavicles, and shoulders. There is no demonstrated abnormality of the visualized soft tissue structures of the upper abdomen. RAD/Chest PA and Lateral IMPRESSION: Hyperinflation. Electronically Signed: Evaristo Newby, at 15:24 EDT , Service support ,
== END ==
PROVIDERS: PCP Family Medicine; Referring Provider Family Medicine; Visit Provider Family Medicine
DX: R09.81 Nasal congestion (principal); R05 Cough
CPT/HCPCS: 70220; 71046

== ENCOUNTER → 2020-04-08 14:53 | Outpatient (CLI) | payer OTHER, SELFPAY ==
[2019-11-22 10:07] VITALS: BMI 20.5
[2020-04-08 15:46] LABS: Absolute Lymphocyte Count 2.14 X10^3/uL (0.83-4.51); Absolute Neutrophil Count 3.8 X10^3/uL (2.0-7.7); Basophil# 0.01 X10^3/uL; Basophil% 0.1 % (0-1); Eosinophil# 0.08 X10^3/uL; Eosinophils% 1.2 % (0-5); Hematocrit 41.7 % (37-47); Hemoglobin 13.8 g/dL (12.0-15.0); Lymphocyte # 2.14 X10^3/ul (4.0); Lymphocyte % 31.7 % (19-41); Mean Corp Hgb Conc 33.1 g/dL (32-36); Mean Corpuscular Hgb 29.9 pg (27.0-32.0); Mean Corpuscular Volume 90.5 fL (81-99); Mean Platelet Vol. 9.2 fl (6.2-12.0); Monocyte# 0.69 X10^3/uL; Monocyte% 10.2 % (0-10); NRBC Flagged by Analyzer 0 % (0-5); Neutrophil # 3.83 X10^3/uL (2.7-7.7); Neutrophil % 56.7 % (47-70); Platelet Count 244 K/mm3 (150-450); RBC Distribution Width CV 11.8 % (11.6-14.6); RBC Distribution Width SD 38.8 fl (35.1-43.9); Red Blood Count 4.61 M/mm3 (4.2-5.4); White Blood Count 6.8 K/mm3 (4.4-11.0)
[2020-04-08 16:21] LABS: ALB/GLOB Ratio 1.2 RATIO (0.9-2.4); AST(SGOT) 21 U/L (15-37); Alanine Aminotransfer ALT/SGPT 29 U/L (13-56); Albumin, Serum 4.1 g/dL (3.2-5.0); Alkaline Phosphatase 81 U/L (45-117); Anion Gap 8 (5-15); BUN 14 mg/dL (7-18); BUN/Creat Ratio 16.1 RATIO (10-20); Calcium,Total 8.9 mg/dL (8.5-10.1); Chloride 104 mmol/L (98-107); Creatinine, Serum 0.87 mg/dL (0.55-1.02); EST Glomerular Filtration Rate 73 mL/min (>60); Est Glom Filt Rate - Afr Amer 88 mL/min (>60); Globulin 3.3 g/dL (2.2-4.2); Glucose 94 mg/dL (74-106); Magnesium 2.5 mg/dL (1.6-2.6); Potassium 3.8 mmol/L (3.5-5.1); Protein, Total 7.4 g/dL (6.4-8.2); Sodium Level 141 mmol/L (136-145); Thyroid Stim Hormone (TSH) 1.74 uIU/mL (0.358-3.74)
== END ==
PROVIDERS: PCP Family Medicine; Referring Provider Family Medicine; Visit Provider Family Medicine
DX: R20.2 Paresthesia of skin (principal)
CPT/HCPCS: 36415; 80053; 83735; 84443; 85025

== ENCOUNTER → 2020-10-17 10:57 | Outpatient (CLI) | payer BC, SELFPAY ==
[2019-11-22 10:07] VITALS: BMI 20.5
[2020-10-17 11:31] LABS: Absolute Lymphocyte Count 1.52 X10^3/uL (0.83-4.51); Absolute Neutrophil Count 3.7 X10^3/uL (2.0-7.7); Basophil# 0.02 X10^3/uL; Basophil% 0.3 % (0-1); Eosinophil# 0.12 X10^3/uL; Hematocrit 42.7 % (37-47); Hemoglobin 14.1 g/dL (12.0-15.0); Lymphocyte # 1.52 X10^3/ul (4.0); Lymphocyte % 25.4 % (19-41); Mean Corpuscular Hgb 29.7 pg (27.0-32.0); Mean Corpuscular Volume 90.1 fL (81-99); Mean Platelet Vol. 8.9 fl (6.2-12.0); Monocyte# 0.61 X10^3/uL; Monocyte% 10.2 % (0-10); NRBC Flagged by Analyzer 0 % (0-5); Neutrophil # 3.69 X10^3/uL (2.7-7.7); Neutrophil % 61.8 % (47-70); Platelet Count 244 K/mm3 (150-450); RBC Distribution Width CV 11.7 % (11.6-14.6); RBC Distribution Width SD 38.4 fl (35.1-43.9); Red Blood Count 4.74 M/mm3 (4.2-5.4)
[2020-10-17 12:06] LABS: ALB/GLOB Ratio 1.2 RATIO (0.9-2.4); AST(SGOT) 26 U/L (15-37); Alanine Aminotransfer ALT/SGPT 29 U/L (13-56); Albumin, Serum 4.1 g/dL (3.2-5.0); Alkaline Phosphatase 91 U/L (45-117); Amylase 68 U/L (25-115); Anion Gap 5 (5-15); BUN 14 mg/dL (7-18); BUN/Creat Ratio 17.6 RATIO (10-20); Calcium,Total 8.8 mg/dL (8.5-10.1); Chloride 105 mmol/L (98-107); Creatinine, Serum 0.79 mg/dL (0.55-1.02); EST Glomerular Filtration Rate 81 mL/min (>60); Est Glom Filt Rate - Afr Amer 97 mL/min (>60); Globulin 3.4 g/dL (2.2-4.2); Glucose 100 mg/dL (74-106); Lipase 138 U/L (73-393); Protein, Total 7.5 g/dL (6.4-8.2); Sodium Level 140 mmol/L (136-145)
== END ==
PROVIDERS: PCP Family Medicine; Referring Provider Family Medicine; Visit Provider Family Medicine
DX: R10.10 Upper abdominal pain, unspecified (principal)
CPT/HCPCS: 36415; 80053; 82150; 83690; 85025

== ENCOUNTER → 2020-11-13 13:46 | Outpatient (CLI) | payer BC, SELFPAY ==
[2019-11-22 10:07] VITALS: BMI 20.5
[2020-11-13 19:21] LABS: Probe Check PASS; Specimen Processing Control PASS
== END ==
PROVIDERS: PCP Family Medicine; Referring Provider Family Medicine; Visit Provider Family Medicine
DX: Z20.822 Contact with and (suspected) exposure to COVID-19 (principal)
CPT/HCPCS: 87635; U0002

== ENCOUNTER → 2020-11-14 11:34 | Outpatient (CLI) | payer BC, SELFPAY ==
[2019-11-22 10:07] VITALS: BMI 20.5
== END ==
PROVIDERS: PCP Family Medicine; Referring Provider Family Medicine; Visit Provider Family Medicine
DX: Z20.822 Contact with and (suspected) exposure to COVID-19 (principal)
CPT/HCPCS: 87635; U0002

== ENCOUNTER 2020-11-25 12:45 | Emergency (ER) | payer BC, SELFPAY ==
[2019-11-22 10:07] VITALS: BMI 20.5
[2020-11-25 12:48] VITALS: BP 154/94; PULSE 91; RESP 14; TEMP 35.9; O2SAT 99; BMI 19.1
--- NOTE | 2020-11-25 14:00 | ED.DCSUM_ITS ---
History of Present Illness Informant: Patient Narrative: 50-year-old female presenting with 4 to 5 days of generalized abdominal pain. Patient has had episodes like this for the past several years. She states that she thought it was probably her gallbladder as most women in her family have had gallbladder disease. She tells me that typically the episodes last a few days and then resolved. Now she is noting, of a generalized abdominal pain but mostly lower a fullness in her epigastrium and lower chest. She states that she has had some food today and meal replacement drink and Pepsi. She states she was hesitant to advance her diet too much. She went saw her family doctor today as this episode is longer than normal and they sent her to emergency had a concern for possible appendicitis versus cholecystitis. Patient denies any fevers. 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 colp negative 11/16. suspect urogenital atrophy, not a candidate for estrogen. plan repeat pap hpv in 1 year (2) Nontoxic multinodular goiter Status: Chronic (3) TIA (transient ischemic attack) Status: Chronic <Ranjan Brunner - Last Filed: 11/25/20 17:42> Past Medical History Surgical History: noncontributory Lives: Spouse/ Significant Other Smoking Status: Never smoker Alcohol: None Drugs: None <Ranjan Brunner - Last Filed: 11/25/20 17:42> <Tyson Johnson - Last Filed: 11/25/20 18:26> - Allergies and Home Meds Allergies/Adverse Reactions: Allergies venlafaxine [From Effexor] Allergy (Intermediate, Verified 11/25/20 12:47) skin crawling makes her feel like skin is crawling Primary Care Physician: Ger Butcher MD [Primary Care Provider] - Review of Systems General: Denies: Chills, Fever, Sweats Eyes: Denies: Visual changes - bilaterally, Diplopia ENT: Denies: Rhinorrhea, Sore throat Cardiovascular: Denies: Chest pain, Palpitations Respiratory: Denies: Dyspnea, Cough, Dyspnea on exertion Gastrointestinal: Reports: Abdominal pain, Nausea. Denies: Vomiting, Diarrhea, Melena, Hematochezia Genitourinary: Denies: Dysuria, Hematuria, Frequency Musculoskeletal: Denies: Back pain, Extremity Pain Skin: Denies: Rash, Wounds Neurological: Denies: Headache, Weakness, Numbness <Forest HomeRanjan vizcaino - Last Filed: 11/25/20 17:42> Physical Exam Vital Signs/Narrative: Vital Signs Temp Pulse Resp BP Pulse Ox 11/25/20 12:48 96.6 F L 91 14 154/94 H 99 Inital Vital Signs reviewed: Yes General: Well nourished, Well developed, No Acute Distress Head: Normocephalic, Atraumatic Eyes: Perrl, EOMI ENT: Moist mucous membranes, No rhinorrhea Neck: Supple, Nontender Cardiovascular: Regular rate, Regular rhythm, No murmurs Respiratory: No distress, CTA bilaterally, Chest nontender Abdomen: Soft, Nondistended, Normal bowel sounds, Tender, Guarding Back: Nontender, Normal Inspection Extremities: Nontender, No edema Skin: Normal color, No rash Neurological: Alert, Oriented x3, Cranial nerves II-XII grossly intact, Normal Strength, Normal Sensation Psychological: Normal affect, Normal Mood <Forest HomeRanjan - Last Filed: 11/25/20 17:42> Vital Signs/Narrative: Vital Signs Pulse Resp BP Pulse Ox 11/25/20 15:39 73 16 129/74 H 99 <JohnsonTyson - Last Filed: 11/25/20 18:26> Diagnostic/Tx/Re-eval Clinical Impression(s) from Imaging Studies Abdomen Ultrasound 11/25/20 14:16 IMPRESSION: 1. No cholelithiasis or sonographic evidence for cholecystitis. 2. Negative right upper quadrant ultrasound. at 1700 Reported and signed by: Ronny Love MD Electronically Signed: Ronny Love MD at 16:59 EDT Tel , Service support , Laboratory Last Values WBC 8.1 K/mm3 (4.4-11.0) 11/25/20 14:10 RBC 5.08 M/mm3 (4.2-5.4) 11/25/20 14:10 Hgb 15.1 g/dL (12.0-15.0) H 11/25/20 14:10 Hct 46.9 % (37-47) 11/25/20 14:10 MCV 92.3 fL (81-99) 11/25/20 14:10 MCH 29.7 pg (27.0-32.0) 11/25/20 14:10 MCHC 32.2 g/dL (32-36) 11/25/20 14:10 RDW Std Deviation 39.4 fl (35.1-43.9) 11/25/20 14:10 RDW Coeff of Ion 11.6 % (11.6-14.6) 11/25/20 14:10 Plt Count 289 K/mm3 (150-450) 11/25/20 14:10 MPV 9.0 fl (6.2-12.0) 11/25/20 14:10 Immature Gran % (Auto) 0.400 % (0.0-0.9) 11/25/20 14:10 Neut % (Auto) 62.1 % (47-70) 11/25/20 14:10 Lymph % (Auto) 25.6 % (19-41) 11/25/20 14:10 [place] % (Auto) 9.9 % (0-10) 11/25/20 14:10 Eos % (Auto) 1.5 % (0-5) 11/25/20 14:10 Baso % (Auto) 0.5 % (0-1) 11/25/20 14:10 Absolute Neuts (auto) 5.0 X10^3/uL (2.0-7.7) 11/25/20 14:10 Absolute Lymphs (auto) 2.06 X10^3/uL (0.83-4.51) 11/25/20 14:10 Nucleated RBC % 0 % (0-5) 11/25/20 14:10 Sodium 139 mmol/L (136-145) 11/25/20 14:10 Potassium 3.8 mmol/L (3.5-5.1) 11/25/20 14:10 Chloride 104 mmol/L (98-107) 11/25/20 14:10 Carbon Dioxide 31.0 mmol/L (21.0-32.0) 11/25/20 14:10 Anion Gap 4 (5-15) L 11/25/20 14:10 BUN 12 mg/dL (7-18) 11/25/20 14:10 Creatinine 0.82 mg/dL (0.55-1.02) 11/25/20 14:10 Estim Creat Clear Calc 64.23 ml/min 11/25/20 14:10 Est GFR (MDRD) Af Amer 94 mL/min (>60) 11/25/20 14:10 Est GFR (MDRD) Non-Af 77 mL/min (>60) 11/25/20 14:10 BUN/Creatinine Ratio 14.6 RATIO (10-20) 11/25/20 14:10 Glucose 99 mg/dL (74-106) 11/25/20 14:10 Calcium 9.5 mg/dL (8.5-10.1) 11/25/20 14:10 Total Bilirubin 1.10 mg/dL (0.20-1.00) H 11/25/20 14:10 AST 20 U/L (15-37) 11/25/20 14:10 ALT 38 U/L (13-56) 11/25/20 14:10 Alkaline Phosphatase 97 U/L (45-117) 11/25/20 14:10 Total Protein 8.1 g/dL (6.4-8.2) 11/25/20 14:10 Albumin 4.4 g/dL (3.2-5.0) 11/25/20 14:10 Globulin 3.7 g/dL (2.2-4.2) 11/25/20 14:10 Albumin/Globulin Ratio 1.2 RATIO (0.9-2.4) 11/25/20 14:10 Lipase 132 U/L (73-393) 11/25/20 14:10 <Ranjan Brunner - Last Filed: 11/25/20 17:42> - Medical Decision Making Patient turned over to me from Dr. Vasquez Brunner. Labs were normal. CAT scan of the abdomen showed no acute process. Ultrasound showed no acute process. Dr. Ranjan Heart of general surgery was consulted he also reviewed the labs and imaging. Patient will be discharged home to follow-up with Dr. Heart for abdominal pain of uncertain etiology. Impression abdominal pain of uncertain etiology <Tyson Johnson - Last Filed: 11/25/20 18:26> ED Disposition <Ranjan Brunner - Last Filed: 11/25/20 17:42> <Tyson Johnson - Last Filed: 11/25/20 18:26> - Plan for ED Patient: Referrals: Ger Butcher MD [Primary Care Provider] -
--- NOTE | 2020-11-25 14:16 | US_ITS ---
HISTORY: ABD PAIN COMPARISON: None. TECHNIQUE: Real-time transabdominal imaging of the right upper quadrant was performed. # of images incl. paperwork: 104 FINDINGS: LIVER: Normal size and parenchymal echotexture. No focal lesions are identified. GALLBLADDER: Mildly contracted gallbladder. No biliary sludge or stones. No abnormal wall thickening or pericholecystic fluid. Sonographic Preciado sign: Negative. CBD/BILE DUCT: The common bile duct is not dilated, measuring 3 mm. There is no intra or extrahepatic biliary ductal dilatation. PANCREAS: Grossly unremarkable, partially obscured by superimposed bowel gas. OTHER: Right kidney is unremarkable without hydronephrosis, measuring 10.0 cm in length. US/Abdomen Limited IMPRESSION: 1. No cholelithiasis or sonographic evidence for cholecystitis. 2. Negative right upper quadrant ultrasound. at 1700 Reported and signed by: Ronny Love MD Electronically Signed: Ronny Love MD at 16:59 EDT Tel , Service support ,
--- NOTE | 2020-11-25 14:22 | CT_ITS ---
STUDY: CT ABDOMEN AND PELVIS WITH CONTRAST REASON FOR EXAM: Female, 50 years old. Abdominal pain. RADIATION DOSAGE (If Supplied By Facility): CTDIvol = ( 16.50 ) mGy, DLP = ( 429.93 ) mGycm TECHNIQUE: Transaxial images were obtained from the dome of the diaphragm to the symphysis pubis with oral contrast. 100mL Isovue-300 was administered. Sagittal and coronal images were reconstructed. Individualized dose optimization techniques were used for this CT. COMPARISON: Abdominal ultrasound, 11/25/2020. FINDINGS: The visualized lung bases are unremarkable. The visualized portions of the heart are within normal limits. Subcentimeter cyst in segment 4A and otherwise normal liver. Normal gallbladder and extrahepatic biliary system. Normal spleen. Normal pancreas. Normal bilateral adrenal glands. Normal right kidney. Normal left kidney. Normal visualized stomach. Normal small intestine. Air and feces is seen throughout a nondistended colon. There is no mass or obstruction. The appendix is visualized and appears normal. Normal abdominal aorta. Normal inferior vena cava. Normal retroperitoneum. Normal urinary bladder. Normal uterus and ovaries. There is no pelvic lymphadenopathy or mass no free air or free fluid is seen within the peritoneal cavity. Normal abdominal wall. Normal osseous structures. CT/Abdomen/Pelvis WITH Contrast IMPRESSION: No acute intra-abdominal or pelvic process. Electronically Signed: Arvind Merino DO at 18:13 EDT Tel [phone], Service support ,
--- NOTE | 2020-11-25 14:25 | ED.RN ---
RN AT BEDSIDE TO UPDATE PATIENT. PT NEEDS US OF GALLBLADDER BEFORE CT OF ABDOMEN. NEEDS CT DRINK BUT NOT UNTIL US IS COMPLETE. PT AGREEABLE. ORDERS FOR LABWORK SENT AT THIS TIME THAT IS ALREADY DOWN THERE. RN WILL CONTINUE TO MONITOR.
[2020-11-25 14:28] LABS: Absolute Lymphocyte Count 2.06 X10^3/uL (0.83-4.51); Basophil# 0.04 X10^3/uL; Basophil% 0.5 % (0-1); Eosinophil# 0.12 X10^3/uL; Eosinophils% 1.5 % (0-5); Hematocrit 46.9 % (37-47); Hemoglobin 15.1 g/dL (12.0-15.0); Lymphocyte # 2.06 X10^3/ul (4.0); Lymphocyte % 25.6 % (19-41); Mean Corp Hgb Conc 32.2 g/dL (32-36); Mean Corpuscular Hgb 29.7 pg (27.0-32.0); Mean Corpuscular Volume 92.3 fL (81-99); Monocyte% 9.9 % (0-10); NRBC Flagged by Analyzer 0 % (0-5); Neutrophil # 5.01 X10^3/uL (2.7-7.7); Neutrophil % 62.1 % (47-70); Platelet Count 289 K/mm3 (150-450); RBC Distribution Width CV 11.6 % (11.6-14.6); RBC Distribution Width SD 39.4 fl (35.1-43.9); Red Blood Count 5.08 M/mm3 (4.2-5.4); White Blood Count 8.1 K/mm3 (4.4-11.0)
[2020-11-25 15:00] LABS: ALB/GLOB Ratio 1.2 RATIO (0.9-2.4); AST(SGOT) 20 U/L (15-37); Alanine Aminotransfer ALT/SGPT 38 U/L (13-56); Albumin, Serum 4.4 g/dL (3.2-5.0); Alkaline Phosphatase 97 U/L (45-117); Anion Gap 4 (5-15); BUN 12 mg/dL (7-18); BUN/Creat Ratio 14.6 RATIO (10-20); Calcium,Total 9.5 mg/dL (8.5-10.1); Chloride 104 mmol/L (98-107); Creatinine, Serum 0.82 mg/dL (0.55-1.02); EST Glomerular Filtration Rate 77 mL/min (>60); Est Glom Filt Rate - Afr Amer 94 mL/min (>60); Estimated Creatinine Clearance 64.23 ml/min; Globulin 3.7 g/dL (2.2-4.2); Glucose 99 mg/dL (74-106); Lipase 132 U/L (73-393); Potassium 3.8 mmol/L (3.5-5.1); Protein, Total 8.1 g/dL (6.4-8.2); Sodium Level 139 mmol/L (136-145)
[2020-11-25 15:39] VITALS: BP 129/74; PULSE 73; RESP 16; O2SAT 99
--- NOTE | 2020-11-25 18:26 | ED.DEP ---
ED Disposition - Plan for ED Patient: Disposition: Home or Assisted Living Instructions: ED Abdominal Pain Unkn Cause Fem Referrals: Ranjan Heart MD [STAFF PHYSICIAN] - As soon as possible Additional Instructions: Call and follow-up with Dr. Vasquez Heart of general surgery. He saw you today in the emergency department. He will do further evaluation of your abdominal pain. Your labs and CAT scan today were normal. Tylenol for pain. Return if feeling much worse.
[2020-11-25 18:32] VITALS: BP 134/85; PULSE 92; RESP 16; O2SAT 95
== END 2020-11-25 18:34 | disposition home or self-care (01) ==
PROVIDERS: Emergency Provider Emergency Medicine; PCP Family Medicine
DX: R10.84 Generalized abdominal pain (principal); E04.2 Nontoxic multinodular goiter; Z86.73 Personal history of transient ischemic attack (TIA), and cerebral infarction without residual deficits
CPT/HCPCS: 74177; 76705; 80053; 83690; 85025; 99282; Q9967; A4216

== ENCOUNTER → 2021-02-04 16:48 | Outpatient (CLI) | payer BC, SELFPAY ==
[2021-02-04 13:16] VITALS: BMI 19.1
[2021-02-10 16:39] LABS: HPV APTIMA, High Risk Negative (Negative)
== END ==
PROVIDERS: PCP Family Medicine; Visit Provider Nurse Practitioner Women's Health
DX: Z12.4 Encounter for screening for malignant neoplasm of cervix (principal)
CPT/HCPCS: 87624; 88175; G0145

== ENCOUNTER → 2021-02-19 10:47 | Outpatient (CLI) | payer BC, SELFPAY ==
[2021-01-08 11:07] VITALS: BMI 19.1
[2021-02-04 13:16] VITALS: BMI 19.1
--- NOTE | 2021-02-19 10:49 | BI_ITS ---
MAMMOGRAPHY - BILATERAL SCREENING 3-D TOMOSYNTHESIS REASON FOR EXAM: Female, 51 years old. breast cancer screening PERTINENT HISTORY: No significant family history. TECHNIQUE: 2-D mammograms and 3-D Tomosynthesis of the breast (s) were performed. CAD was performed. COMPARISON: 02/19/2020. FINDINGS: The breast composition is of heterogeneous fibroglandular tissue No dense spiculated masses or suspicious microcalcifications are identified. No architectural distortion is identified. There is no skin thickening or nipple retraction. There has been no significant change since the prior study of February 1609/2019. BI/SCRN MAMM (CAD)W/JORGE BILAT IMPRESSION: No mammographic signs of malignancy. Routine yearly mammograms recommended. ASSESSMENT CATEGORY: BIRADS Category 1: Negative. A letter regarding these results will be sent to the patient by the facility within 30 days. FOLLOW UP RECOMMENDATION: Yearly follow up mammogram recommended. (A) Approximately 10% of breast cancers are not detected by mammography. A normal mammogram should not delay biopsy of a clinically suspicious abnormality. Electronically Signed: Natalie Harp, at 15:25 EDT Tel , Service support ,
== END ==
PROVIDERS: PCP Family Medicine; Referring Provider Nurse Practitioner Women's Health; Visit Provider Nurse Practitioner Women's Health
DX: Z12.31 Encounter for screening mammogram for malignant neoplasm of breast (principal)
CPT/HCPCS: 77063; 77067

== ENCOUNTER → 2021-05-13 10:35 | Outpatient (CLI) | payer BC, SELFPAY ==
--- NOTE | 2021-05-13 10:37 | RAD_ITS ---
STUDY: X-RAY - LEFT ELBOW REASON FOR EXAM: Female, 51 years old. elbow pain TECHNIQUE: 3 view(s) of the elbow. COMPARISON: None. FINDINGS: Normal visualized humerus, radius and ulna. Normal radiocapitellar and ulnotrochlear articulations. The soft tissue structures are unremarkable. RAD/Elbow min 3 Views IMPRESSION: Normal x-ray examination of the elbow. Electronically Signed: Cyrus Velazco MD ([place]) at 14:48 EDT , Service support ,
== END ==
PROVIDERS: PCP Family Medicine; Referring Provider Family Medicine; Visit Provider Family Medicine
DX: M25.522 Pain in left elbow (principal)
CPT/HCPCS: 73080

== ENCOUNTER → 2021-06-03 16:53 | Outpatient (CLI) | payer BC, SELFPAY | PROVIDERS: PCP Family Medicine; Referring Provider Family Medicine; Visit Provider Family Medicine | DX: Z20.822 Contact with and (suspected) exposure to COVID-19 (principal); J06.9 Acute upper respiratory infection, unspecified | CPT/HCPCS: 87633; 87635; U0005; U0003 ==

== ENCOUNTER → 2021-08-25 07:43 | Outpatient (CLI) | payer BC, SELFPAY | PROVIDERS: PCP Family Medicine; Visit Provider Family Medicine | DX: Z20.822 Contact with and (suspected) exposure to COVID-19 (principal) | CPT/HCPCS: 87635; U0005; U0003 ==

== ENCOUNTER → 2021-08-26 17:25 | Outpatient (CLI) | payer BC, SELFPAY ==
--- NOTE | 2021-08-26 17:26 | RAD_ITS ---
EXAM: XR CHEST, 2 VIEWS CLINICAL INDICATION: BRONCHITIS TECHNIQUE: Frontal and lateral views of the chest. This report was created using [employer] report generation technology. COMPARISON: None. FINDINGS: LUNGS AND PLEURAL SPACES: Unremarkable. No consolidation or edema. No pneumothorax. No effusion. HEART: Unremarkable. Cardiac silhouette not enlarged. MEDIASTINUM: Central airways and mediastinal contour are unremarkable. BONES/JOINTS: Unremarkable. SOFT TISSUES: Unremarkable. RAD/Chest PA and Lateral IMPRESSION: No radiographic evidence of acute cardiopulmonary disease. Electronically Signed: Thomas Saab MD at 18:46 EST , Service support ,
== END ==
PROVIDERS: PCP Family Medicine; Referring Provider Family Medicine; Visit Provider Family Medicine
DX: J40 Bronchitis, not specified as acute or chronic (principal)
CPT/HCPCS: 71046

== ENCOUNTER → 2021-08-28 16:05 | Outpatient (CLI) | payer BC, SELFPAY | PROVIDERS: PCP Family Medicine; Visit Provider Family Medicine | DX: J40 Bronchitis, not specified as acute or chronic (principal) | CPT/HCPCS: 87633 ==

== ENCOUNTER 2021-09-26 18:11 | Outpatient (CLI) | payer BC, SELFPAY | END 2021-09-26 23:59 | disposition short-term general hospital (02) | PROVIDERS: PCP Family Medicine; Visit Provider Family Medicine | DX: U07.1 COVID-19 (principal) | CPT/HCPCS: 87635; U0003; U0005 ==

== ENCOUNTER 2021-11-27 07:19 | Outpatient (CLI) | payer BC, SELFPAY ==
[2021-11-27 08:01] LABS: Hematocrit 41.7 % (37-47); Hemoglobin 14.3 g/dL (12.0-15.0); Mean Corp Hgb Conc 34.3 g/dL (32-36); Mean Corpuscular Hgb 30.1 pg (27.0-32.0); Mean Corpuscular Volume 87.8 fL (81-99); Mean Platelet Vol. 8.8 fl (6.2-12.0); Platelet Count 237 K/mm3 (150-450); RBC Distribution Width CV 12.3 % (11.6-14.6); RBC Distribution Width SD 39.4 fl (35.1-43.9); Red Blood Count 4.75 M/mm3 (4.2-5.4); White Blood Count 5.3 K/mm3 (4.4-11.0)
[2021-11-27 08:30] LABS: ALB/GLOB Ratio 1.2 RATIO (0.9-2.4); AST(SGOT) 20 U/L (15-37); Alanine Aminotransfer ALT/SGPT 25 U/L (13-56); Albumin, Serum 3.9 g/dL (3.2-5.0); Alkaline Phosphatase 84 U/L (45-117); Anion Gap 3 (5-15); BUN 13 mg/dL (7-18); BUN/Creat Ratio 15.2 RATIO (10-20); Calcium,Total 8.9 mg/dL (8.5-10.1); Chloride 108 mmol/L (98-107); Cholesterol 163 mg/dL (200); Creatinine, Serum 0.85 mg/dL (0.55-1.02); EST Glomerular Filtration Rate 74 mL/min (>60); Est Glom Filt Rate - Afr Amer 89 mL/min (>60); Globulin 3.2 g/dL (2.2-4.2); Glucose 99 mg/dL (74-106); High Density Lipoprotein 58 mg/dL; Magnesium 2.3 mg/dL (1.6-2.6); Potassium 3.9 mmol/L (3.5-5.1); Protein, Total 7.1 g/dL (6.4-8.2); Sodium Level 141 mmol/L (136-145); Thyroid Stim Hormone (TSH) 2.54 uIU/mL (0.358-3.74); Triglycerides 102 mg/dL; Very Low Density Lipoprotein 20 mg/dL (5-40)
== END 2021-11-27 23:59 | disposition home or self-care (01) ==
LOC: LAB 07:22
PROVIDERS: PCP Family Medicine; Visit Provider Family Medicine
DX: R00.2 Palpitations (principal); E78.00 Pure hypercholesterolemia, unspecified
CPT/HCPCS: 36415; 80053; 80061; 83735; 84443; 85027

== ENCOUNTER → 2021-12-29 | Outpatient (CLI) | payer BC, SELFPAY ==
--- NOTE | 2021-12-29 14:27 | US_ITS ---
STUDY: THYROID ULTRASOUND REASON FOR EXAM: Female, 51 years old. Thyroid nodules. TECHNIQUE: Ultrasound evaluation of the thyroid was performed with real-time and static mora-scale imaging. COMPARISON: Comparison is made with prior study dated 11/07/2019. FINDINGS: RIGHT LOBE: The right lobe of the thyroid gland is enlarged and measures 5.9 cm x 1.8 cm x 1.9 cm. There is a heterogeneous echotexture. Once again, multiple hypoechoic heterogeneous solid nodules are seen. The largest nodule measures 2.7 cm x 1.3 sided by 2 cm. This is in the mid pole. A similar appearing nodular density measuring 2.4 cm x 2.2 cm by 1.4 cm is seen in the lower pole. There has been essentially no change. LEFT LOBE: The left lobe of the thyroid gland measures 4.9 cm x 1 cm x 1.4 cm. There is a homogeneous echotexture. There are no demonstrated solid, cystic or complex lesions. ISTHMUS: The isthmus measures 2.1 mm. The regional lymph nodes are normal. US/Thyroid IMPRESSION: Heterogeneous enlargement of the right lobe of the thyroid with stable solid nodules as described. Electronically Signed: Evaristo Newby MD at 13:01 EDT ,
== END | disposition home or self-care (01) ==
PROVIDERS: PCP Family Medicine; Visit Provider Family Medicine
DX: E07.9 Disorder of thyroid, unspecified (principal)
CPT/HCPCS: 76536

== ENCOUNTER → 2022-01-23 | Outpatient (CLI) | payer BC, SELFPAY ==
--- NOTE | 2022-01-23 12:52 | ECHOD_ITS ---
Reason For Study: Palpitations Procedure This was a 2D Doppler, Color Flow transthoracic echocardiogram. Exam performed in department. Left Ventricle Normal LV size. Left ventricular systolic function is normal. The estimated ejection fraction is 60 %. Normal diastology for age. No regional wall motion abnormalities noted. Right Ventricle Normal RV size. Normal systolic function. Atria Normal left atrium. Normal right atrium. Mitral Valve Normal mitral valve. Tricuspid Valve Normal tricuspid valve. Aortic Valve Normal aortic valve. Trisinus/trileaflet aortic valve. Pulmonic Valve Normal pulmonic valve. Great Vessels Normal aortic root. The pulmonary artery is normal size. Normal inferior vena cava. Pericardium/Pleural No pericardial effusion. MMode/2D Measurements & Calculations LVIDd: 4.2 cm IVSd: 0.89 cm Ao root diam: 2.7 cm LVIDs: 2.9 cm LVPWd: 0.73 cm LA dimension: 2.5 cm RVDd: 2.4 cm FS: 29.6 % LAV(MOD-bp): 24.7 ml LA A4 area: 13.1 cm2 RA A4 area: 8.8 cm2 LAV(MOD-bp) Indexed: 16.0 ml/m2 LAV(MOD-sp2): 18.4 ml LAV(MOD-sp4): 28.9 ml Time Measurements MV dec time: 0.22 sec Doppler Measurements & Calculations MV E max sebastian: 91.7 cm/sec Lat Peak E' Sebastian: 14.1 cm/sec Med Peak E' Sebastian: 13.6 cm/sec MV A max sebastian: 84.2 cm/sec E/E' lat: 6.5 E/E' med: 6.7 MV E/A: 1.1 MV V2 max: 93.8 cm/sec MV P1/2t max sebastian: 95.1 cm/sec Ao V2 max: 133.5 cm/sec MV max P.5 mmHg MV P1/2t: 100.3 msec Ao max P.1 mmHg MV V2 mean: 63.4 cm/sec MV dec slope: 277.6 cm/sec2 MV mean P.8 mmHg MVA(P1/2t): 2.2 cm2 MV V2 VTI: 28.2 cm LV V1 max: 96.6 cm/sec PA V2 max: 83.6 cm/sec LV V1 max P.7 mmHg ECHO/Echo Complete Interpretation Summary Normal LV size. Left ventricular systolic function is normal. The estimated ejection fraction is 60 %. Normal diastology for age. Ordering Physician: Lukasz Toledo Referring Physician: Edi Toledo Performed By: Bubba Calle RCS
== END | disposition home or self-care (01) ==
PROVIDERS: PCP Family Medicine; Visit Provider Family Medicine
DX: R00.2 Palpitations (principal)
CPT/HCPCS: 93306

== ENCOUNTER → 2022-02-17 | Outpatient (CLI) | payer BC, SELFPAY ==
[2022-02-20 13:17] LABS: HPV APTIMA, High Risk Negative (Negative)
== END | disposition home or self-care (01) ==
LOC: LABSPEC 11:39
PROVIDERS: PCP Family Medicine; Visit Provider Nurse Practitioner Women's Health
DX: Z12.4 Encounter for screening for malignant neoplasm of cervix (principal)
CPT/HCPCS: 87624; 88175; G0145

== ENCOUNTER → 2022-02-24 | Outpatient (CLI) | payer BC, SELFPAY ==
--- NOTE | 2022-02-24 15:40 | BI_ITS ---
MAMMOGRAPHY - BILATERAL SCREENING REASON FOR EXAM: Female, 52 years old. Routine annual screening examination. PERTINENT HISTORY: Non-contributory. TECHNIQUE: Digital bilateral breast jorge (3D mammographic acquisition) in the CC and MLO projections. 2-D mediolateral oblique (MLO) and craniocaudad (CC) views of both breasts were obtained. CAD: Full Field Digital Mammography with Computer Added Detection was performed. COMPARISON: Comparison is made with prior study dated 02/19/2021 and 02/19/2020. FINDINGS: Breast Composition: The breasts are heterogeneously dense, which may obscure small masses. There are no dominant masses or suspicious calcifications. No other significant abnormalities are identified. There has been no significant change since the prior study. BI/SCRN MAMM (CAD)W/JORGE BILAT IMPRESSION: Stable bilateral screening mammogram. Yearly follow-up mammogram recommended. (A) ASSESSMENT CATEGORY: BIRADS Category 1: Negative. A letter regarding these results will be sent to the patient by the facility within 30 days. Approximately 10% of breast cancers are not detected by mammography. A normal mammogram should not delay biopsy of a clinically suspicious abnormality. [id number] Electronically Signed: Evaristo Newby MD at 8:29 EDT ,
== END | disposition home or self-care (01) ==
LOC: OPBI 15:39
PROVIDERS: PCP Family Medicine; Visit Provider Nurse Practitioner Women's Health
DX: Z12.31 Encounter for screening mammogram for malignant neoplasm of breast (principal)
CPT/HCPCS: 77063; 77067

== ENCOUNTER → 2022-11-05 | Outpatient (CLI) | payer BC, SELFPAY ==
--- NOTE | 2022-11-05 13:01 | US_ITS ---
STUDY: THYROID ULTRASOUND REASON FOR EXAM: Female, 52 years old. Thyroid nodule. TECHNIQUE: Ultrasound evaluation of the thyroid was performed with real-time and static mora-scale imaging. COMPARISON: December 29, 2021, November 07, 2019 and September 20, 2018. FINDINGS: RIGHT LOBE: The right lobe of the thyroid gland measures 6.1 x 1.8 x 2.0 cm. There is a heterogeneous echotexture. There are multiple thyroid nodules. Again seen is a heterogenous 3.1 x 1.7 x 2.0 cm nodule in the lower pole. There is a smaller 0.6 x 0.4 x 0.6 cm mixed solid and cystic nodule in the mid thyroid in the posterior upper pole there is a 0.8 x 0.4 x 0.8 cm predominantly cystic nodule. Normal vascularity on Doppler imaging. LEFT LOBE: The left lobe of the thyroid gland measures 4.6 x 1.1 x 1.1 cm. There is a homogeneous echotexture. There are no demonstrated solid, cystic or complex lesions. Normal vascularity on Doppler imaging. ISTHMUS: The isthmus measures 0.2 cm. The regional lymph nodes are normal. US/Thyroid IMPRESSION: 1. Markedly heterogenous right thyroid. There are multiple lobulations which may represent masses. Largest measurement is unchanged from previous examinations. More nodules are unchanged from 2019 suggesting benignity. Electronically Signed: Arvind Merino DO at 16:42 EST ,
== END | disposition home or self-care (01) ==
LOC: US 13:00
PROVIDERS: PCP Family Medicine; Referring Provider Family Medicine; Visit Provider Family Medicine
DX: E07.9 Disorder of thyroid, unspecified (principal)
CPT/HCPCS: 76536

== ENCOUNTER → 2023-02-18 | Outpatient (CLI) | payer BC, SELFPAY ==
[2023-02-24 12:08] LABS: HPV APTIMA, High Risk Negative (Negative)
== END | disposition home or self-care (01) ==
LOC: LABSPEC 15:24
PROVIDERS: PCP Family Medicine; Referring Provider Nurse Practitioner Women's Health; Visit Provider Nurse Practitioner Women's Health
DX: Z01.419 Encounter for gynecological examination (general) (routine) without abnormal findings (principal)
CPT/HCPCS: 87624; 88175; G0145

== ENCOUNTER → 2023-03-09 | Outpatient (CLI) | payer BC, SELFPAY ==
--- NOTE | 2023-03-09 09:13 | BI_ITS ---
MAMMOGRAPHY - BILATERAL SCREENING REASON FOR EXAM: Female, 53 years old. Routine annual screening examination. PERTINENT HISTORY: Non-contributory. TECHNIQUE: Digital bilateral breast jorge (3D mammographic acquisition) in the CC and MLO projections. 2-D mediolateral oblique (MLO) and craniocaudad (CC) views of both breasts were obtained. CAD: Full Field Digital Mammography with Computer Added Detection was performed. COMPARISON: Comparison is made with prior study dated February 16, 2022 and February 19, 2021. FINDINGS: Breast Composition: The breasts are heterogeneously dense, which may obscure small masses. There are no dominant masses or suspicious calcifications. No other significant abnormalities are identified. There has been no significant change since the prior study. BI/SCRN MAMM (CAD)W/JORGE BILAT IMPRESSION: Stable bilateral screening mammogram. Yearly follow-up mammogram recommended. (A) ASSESSMENT CATEGORY: BIRADS Category 1: Negative. A letter regarding these results will be sent to the patient by the facility within 30 days. Approximately 10% of breast cancers are not detected by mammography. A normal mammogram should not delay biopsy of a clinically suspicious abnormality. [id number] Electronically Signed: Evaristo Newby MD at 10:05 EDT ,
== END | disposition home or self-care (01) ==
LOC: OPBI 09:12
PROVIDERS: PCP Family Medicine; Referring Provider Nurse Practitioner Women's Health; Visit Provider Nurse Practitioner Women's Health
DX: Z12.31 Encounter for screening mammogram for malignant neoplasm of breast (principal)
CPT/HCPCS: 77063; 77067

== ENCOUNTER → 2023-03-31 | Outpatient (CLI) | payer BC, SELFPAY ==
[2023-03-31 17:37] LABS: Absolute Neutrophil Count 4.6 X10^3/uL (2.0-7.7); Basophil# 0.02 X10^3/uL; Basophil% 0.3 % (0-1); Eosinophil# 0.08 X10^3/uL; Hematocrit 44.6 % (37-47); Hemoglobin 14.7 g/dL (12.0-15.0); Lymphocyte % 28.5 % (19-41); Mean Corpuscular Hgb 29.5 pg (27.0-32.0); Mean Corpuscular Volume 89.4 fL (81-99); Mean Platelet Vol. 9.2 fl (6.2-12.0); Monocyte# 0.75 X10^3/uL; Monocyte% 9.7 % (0-10); NRBC Flagged by Analyzer 0 % (0-5); Neutrophil # 4.63 X10^3/uL (2.7-7.7); Neutrophil % 60.1 % (47-70); Platelet Count 285 K/mm3 (150-450); RBC Distribution Width CV 11.9 % (11.6-14.6); RBC Distribution Width SD 38.7 fl (35.1-43.9); Red Blood Count 4.99 M/mm3 (4.2-5.4); White Blood Count 7.7 K/mm3 (4.4-11.0)
[2023-03-31 17:53] LABS: Vitamin B12 358 pg/mL (211-911)
[2023-03-31 17:58] LABS: ALB/GLOB Ratio 1.1 RATIO (0.9-2.4); AST(SGOT) 27 U/L (15-37); Alanine Aminotransfer ALT/SGPT 24 U/L (13-56); Alkaline Phosphatase 93 U/L (45-117); Anion Gap 6 (5-15); BUN 13 mg/dL (7-18); Calcium,Total 8.9 mg/dL (8.5-10.1); Chloride 105 mmol/L (98-107); Creatinine, Serum 0.81 mg/dL (0.55-1.02); EST Glomerular Filtration Rate 78 mL/min (>60); Est Glom Filt Rate - Afr Amer 94 mL/min (>60); Globulin 3.7 g/dL (2.2-4.2); Glucose 98 mg/dL (74-106); Protein, Total 7.7 g/dL (6.4-8.2); Sodium Level 138 mmol/L (136-145); Thyroid Stim Hormone (TSH) 1.71 uIU/mL (0.358-3.74)
[2023-03-31 18:14] LABS: Hemoglobin A1c 5.6 % (3.8-5.6)
== END | disposition home or self-care (01) ==
LOC: MFPLAB 14:50
PROVIDERS: PCP Family Medicine; Visit Provider Family Medicine
DX: H53.8 Other visual disturbances (principal)
CPT/HCPCS: 36415; 80053; 82607; 83036; 84443; 85025

== ENCOUNTER 2023-04-16 16:02 | Emergency (ER) | payer BC, SELFPAY ==
[2023-04-16 16:03] VITALS: BP 158/76; PULSE 88; RESP 18; TEMP 36.3; O2SAT 100; BMI 21.6
[2023-04-16 16:06] VITALS: BMI 21.6
--- NOTE | 2023-04-16 16:13 | CT_ITS ---
INDICATION: Paresthesias EXAMINATION: CT BRAIN - CT Head or Brain W/O Contrast Injection TECHNIQUE: Multiple axial images were obtained of the head without intravenous contrast. A radiation dose optimization technique was used for this scan. IV Contrast dosage and agent: None. RADIATION DOSAGE (If Supplied By Facility): CTDIvol = ( 44.99 ) mGy, DLP = ( 796.11 ) mGycm COMPARISON: CT head 09/29/2019 FINDINGS: BRAIN: No acute bleed. No edema. Krishnan-white matter differentiation is maintained. VENTRICLES AND SULCI: Not dilated. EXTRA-AXIAL: No hemorrhage, fluid collection, or mass. CALVARIUM / SKULL BASE: Unremarkable. FACE/SINUSES: Unremarkable. SOFT TISSUES: Unremarkable. CT/Brain/Head without Contrast IMPRESSION: No acute abnormality. Electronically Signed: Rhonda Bautista MD at 16:51 EDT ,
--- NOTE | 2023-04-16 16:14 | EKG12_ITS ---
Test Reason : neuro Blood Pressure : / mmHG Vent. Rate : 070 BPM Atrial Rate : 070 BPM P-R Int : 148 ms QRS Dur : 084 ms QT Int : 386 ms P-R-T Axes : 071 073 054 degrees QTc Int : 416 ms Normal sinus rhythm Normal ECG Confirmed by STEW MENDOZA ([id number]), content editor ORIANA LOZANO ([id number]) on 04/19/2023 2:16:59 PM Referred By: Confirmed By:STEW MENDOZA
--- NOTE | 2023-04-16 16:16 | EX.ED.DYSGE1 ---
HPI History of Present Illness Chief Complaint: Neuro S/Sx Informant: patient Onset/Context/Timing Onset: Weeks (6) Context: Gradual Onset Timing: Intermittent Quality: Pressure and light buzzing sensation Location: Occiput and top of head Worsened by: Driving Relieved by: Rest Narrative Narrative: Patient presents with headache and paresthesias that has been intermittent over the last 6 weeks. Patient states she has a pressure over the top of her head and in the occipital area. Patient states she also has a light buzzing sensation in this area. Patient states it is worse whenever she is driving. Patient states it is better when she is at rest. Patient does admit to some blurry vision. Patient admits to some nausea but denies any vomiting. Patient admits to some pain in her neck. Patient denies any chest pain or shortness of breath. [facility] Medical History Anxiety and depression Back problem GERD (gastroesophageal reflux disease) history of melanoma removed off of wrist Hypercholesterolemia Melanoma TIA (transient ischemic attack) Home Medications bupropion HCl 150 mg 24 hr tablet, extended release 150 mg PO QAM 10/13/17 [History Last Taken Unknown] aspirin 81 mg chewable tablet 81 mg PO DAILY@0800 ##30 09/30/19 [Rx Last Taken Unknown] fluticasone propionate 50 mcg/actuation nasal spray,suspension 1 spray intranasal DAILY 10/19/19 [History Last Taken Unknown] rosuvastatin 20 mg tablet (Crestor) 20 mg PO DAILY 11/13/19 [History Last Taken Unknown] omeprazole 40 mg capsule,delayed release 40 mg PO DAILY 11/25/20 [History Last Taken Unknown] ipratropium bromide 21 mcg (0.03 %) nasal spray 2 spray intranasal BID-TID PRN 02/17/22 [History Last Taken Unknown] trazodone 50 mg tablet 25 mg PO QHS 02/17/22 [History Last Taken Unknown] clascoterone 1 % topical cream (Winlevi) 1 applic topical BID 02/18/23 [History Last Taken Unknown] meclizine 25 mg tablet 25 mg PO TID PRN dizziness #20 tabs 04/16/23 [Rx Last Taken Unknown] Allergy/AdvReac Type Severity Reaction Status Date / Time venlafaxine [From Effexor] Allergy Intermediate skin Verified 02/18/23 13:54 crawling Family History Mother Arthritis Mother Heart disease Hypertension Father Heart disease Hypertension High cholesterol Surgical History History of cholecystectomy Social History Smoking Status: Never smoker second hand exposure: No alcohol intake: current details: social substance use type: does not use caffeine: Yes frequency: 5-6 times per week seatbelt use: always do you feel safe at home: Yes additional social history: [employer] 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 ROS ROS ED Constitutional Constitutional ED: Denies chills or fever(s) Eyes Eyes: Reports blurry vision and change in vision; Denies diplopia ENT ENT ED: Denies rhinorrhea or sore throat Cardiovascular Cardiovascular: Denies chest pain or palpitations Respiratory/Chest Respiratory/Chest: Denies cough or dyspnea Gastrointestinal Gastrointestinal: Reports nausea; Denies vomiting Genitourinary Genitourinary ED: Denies dysuria or hematuria Musculoskeletal Musculoskeletal: Reports neck pain; Denies back pain Integumentary Denies abscess or rash Neurologic Neurologic: Reports headache(s) and paresthesias; Denies weakness Allergic/Immunologic Allergic/Immunologic ED: Denies mouth swelling or urticaria EXAM Physical Exam Const Vital Signs: 04/16/23 16:03 Temperature 97.3 F L Temperature Source Temporal Pulse Rate 88 Respiratory Rate 18 Blood Pressure 158/76 H Blood Pressure Mean 103 Pulse Ox 100 Oxygen Delivery Method Room Air Positive well nourished and well developed General Appearance ED: well developed and NAD HEENT Reports moist mucous membranes Neck supple and no JVD Resp normal respiratory effort and clear to auscultation bilaterally Cardio regular rate, regular rhythm and no murmurs GI normal to inspection, nondistended, normoactive bowel sounds and non-tender Palpation: soft Extremity normal to inspection General Extremety ED: Negative for edema or tenderness General Extremity: Negative for edema Neuro oriented x3, CN's II-XII intact bilaterally and no sensory deficits noted Sensorium / Orientation: alert Motor Exam: strength 5/5 throughout Psych mental status grossly normal Skin no rashes or lesions noted MDM MDM MDM Narrative Medical decision making narrative: Differential diagnosis includes electrolyte abnormality, paresthesias, neuropathy, TIA, stroke, anemia, cardiac dysrhythmia, cardiac ischemia, urinary tract infection, and viral infection. CT scan of the brain will be obtained to assess for intracranial bleeding and stroke. EKG will be obtained to assess for cardiac dysrhythmia and cardiac ischemia. CBC will be obtained to assess for leukocytosis and anemia. Comprehensive metabolic profile will be obtained to assess for electrolyte abnormality, renal function, and hepatic function. PT with INR and PTT will be obtained to assess for coagulopathy. High-sensitivity troponin will be obtained to assess for cardiac ischemia. Urinalysis will be obtained to assess for urinary tract infection. Lab Data Attestation: I reviewed the patient's lab results. Lab results narrative: CBC was reviewed and was within normal limits. Comprehensive metabolic profile was reviewed. Total bilirubin was slightly elevated at 1.2. The remainder is within normal limits. PT with INR and PTT were reviewed and were normal. Urinalysis was reviewed. There is no evidence of urinary tract infection or hematuria. COVID-19 rapid antigen was reviewed and was negative. Influenza A and influenza B antigens were reviewed and were negative. Labs: Laboratory Results - last 24 hr 04/16/23 04/16/23 04/16/23 16:04 16:05 17:35 WBC 8.0 RBC 4.69 Hgb 13.7 Hct 42.2 MCV 90.0 MCH 29.2 MCHC 32.5 RDW Std Deviation 39.3 RDW Coeff of Ion 12.0 Plt Count 253 MPV 8.6 Immature Gran % (Auto) 0.400 Neut % (Auto) 55.3 Lymph % (Auto) 32.6 Gregg % (Auto) 10.4 H Eos % (Auto) 1.1 Baso % (Auto) 0.2 Absolute Neuts (auto) 4.4 Absolute Lymphs (auto) 2.62 Nucleated RBC % 0 PT 12.8 INR 1.0 APTT 25.7 Sodium 136 Potassium 3.6 Chloride 102 Carbon Dioxide 30.0 Anion Gap 4 L BUN 13 Creatinine 0.91 Estim Creat Clear Calc 60.32 Est GFR (MDRD) Af Amer 83 Est GFR (MDRD) Non-Af 68 BUN/Creatinine Ratio 14.3 Glucose 116 H Calcium 8.5 Total Bilirubin 1.20 H AST 19 ALT 30 Alkaline Phosphatase 80 Troponin I High Sens 5 Total Protein 7.0 Albumin 3.9 Globulin 3.1 Albumin/Globulin Ratio 1.3 Urine Color Yellow Urine Clarity Clear Urine pH 7.0 Ur Specific [place] 1.010 Urine Protein Negative Urine Glucose (UA) Normal Urine Ketones Negative Urine Occult Blood 10 H Urine Nitrite Negative Urine Bilirubin Negative Urine Urobilinogen Normal Ur Leukocyte Esterase 25 H Urine RBC 0 SEEN Urine WBC 0-5 SEEN Ur Squamous Epith Cells 0-5 SEEN Urine Bacteria 0 SEEN Urine Mucus 0 SEEN POC Glucose 105 Radiography Diagnostic Testing: Clinical Impression(s) from Imaging Studies Brain CT 04/16/23 16:13 IMPRESSION: No acute abnormality. Electronically Signed: Rhonda Bautista MD at 16:51 EDT , CT scan of the brain was obtained. There is no acute intracranial abnormality. This was interpreted by the radiologist and was also independently reviewed by myself. EKG Initial EKG: Attestation: I personally reviewed and interpreted this EKG as follows: Interpretation: Sinus Rhythm (70) and No Acute Injury Pattern Comments: EKG was obtained. On my independent interpretation, it showed a normal sinus rhythm with a rate of 70. [place] interval, QRS interval, and QTc intervals were all normal. [place] was normal. There are no acute ST or T wave changes. Treatment and Re-Evaluation :: Patient was advised of her findings. Patient is feeling better on reevaluation. Patient was advised of her findings. Patient was given a prescription for a short course of meclizine to take as needed. Patient was instructed to follow-up with her primary care physician in 5 to 7 days for further evaluation. Patient understood and was agreeable with the plan. All questions were answered. Discharge Plan Triage Chief Complaint: Neuro S/Sx ED Provider: Kalia Obando Dx/Rx/DC Orders Clinical Impression: Dizziness, Headache, Paresthesias Instructions: ED Dizziness, Uncertain Cause, ED Headache Unspecified, ED Paraesthesias Prescriptions: New meclizine 25 mg tablet 25 mg PO TID PRN (Reason: dizziness) Qty: 20 0RF No Action bupropion HCl 150 mg tablet extended release 24 hr 150 mg PO QAM fluticasone propionate 50 mcg/actuation spray,suspension 1 spray INTRANASAL DAILY Rx Instructions: administer into each nostril rosuvastatin [Crestor] 20 mg tablet 20 mg PO DAILY ipratropium bromide 21 mcg (0.03 %) spray,non-aerosol 2 spray intranasal BID-TID PRN Rx Instructions: administer into each nostril Winlevi 1 % cream 1 applic topical BID aspirin 81 MG tablet,chewable 81 mg PO DAILY@0800 Qty: 30 0RF omeprazole 40 MG capsule,delayed release(DR/EC) 40 mg PO DAILY trazodone 50 mg tablet 25 mg PO QHS Primary Care Provider: Kim Lopez Referrals: Kim Lopez, [Primary Care Provider] - 5-7 Days Disposition Disposition: Home, Self Care
[2023-04-16 16:26] LABS: Absolute Lymphocyte Count 2.62 X10^3/uL (0.83-4.51); Absolute Neutrophil Count 4.4 X10^3/uL (2.0-7.7); Basophil# 0.02 X10^3/uL; Basophil% 0.2 % (0-1); Eosinophil# 0.09 X10^3/uL; Eosinophils% 1.1 % (0-5); Hematocrit 42.2 % (37-47); Hemoglobin 13.7 g/dL (12.0-15.0); Lymphocyte # 2.62 X10^3/ul (0.83-4.51); Lymphocyte % 32.6 % (19-41); Mean Corp Hgb Conc 32.5 g/dL (32-36); Mean Corpuscular Hgb 29.2 pg (27.0-32.0); Mean Platelet Vol. 8.6 fl (6.2-12.0); Monocyte# 0.84 X10^3/uL; Monocyte% 10.4 % (0-10); NRBC Flagged by Analyzer 0 % (0-5); Neutrophil # 4.44 X10^3/uL (2.7-7.7); Neutrophil % 55.3 % (47-70); Platelet Count 253 K/mm3 (150-450); RBC Distribution Width SD 39.3 fl (35.1-43.9); Red Blood Count 4.69 M/mm3 (4.2-5.4)
[2023-04-16 16:32] LABS: Prothrombin Time (Protime)PT. 12.8 SECONDS (11.7-14.9)
[2023-04-16 16:32] LABS: Bedside Glucose 105 mg/dL (74-106)
[2023-04-16 16:33] LABS: Partial Thromboplast Time 25.7 Seconds (24.1-36.2)
[2023-04-16 16:43] LABS: ALB/GLOB Ratio 1.3 RATIO (0.9-2.4); AST(SGOT) 19 U/L (15-37); Alanine Aminotransfer ALT/SGPT 30 U/L (13-56); Albumin, Serum 3.9 g/dL (3.2-5.0); Alkaline Phosphatase 80 U/L (45-117); Anion Gap 4 (5-15); BUN 13 mg/dL (7-18); BUN/Creat Ratio 14.3 RATIO (10-20); Calcium,Total 8.5 mg/dL (8.5-10.1); Chloride 102 mmol/L (98-107); Creatinine, Serum 0.91 mg/dL (0.55-1.02); EST Glomerular Filtration Rate 68 mL/min (>60); Est Glom Filt Rate - Afr Amer 83 mL/min (>60); Estimated Creatinine Clearance 60.32 ml/min; Globulin 3.1 g/dL (2.2-4.2); Glucose 116 mg/dL (74-106); Potassium 3.6 mmol/L (3.5-5.1); Sodium Level 136 mmol/L (136-145); Troponin-I HS 5 pg/mL (3.0-54.0)
[2023-04-16 17:02] VITALS: BP 114/78; PULSE 78; RESP 16; O2SAT 98
[2023-04-16 17:46] LABS: Bacteria 0 SEEN /hpf (None Seen); Mucous, Urine 0 SEEN /hpf (<or=2+); Red Blood Cells-Urine 0 SEEN /hpf (0-5)
[2023-04-16 18:01] LABS: Color, Urine Yellow (Yellow); Glucose, Dipstick Normal (Normal); Ketone-Dipstick Negative (Negative); Leukocyte Esterase-Dipstick 25 /ul (Negative); Nitrite-Dipstick Negative (Negative); Occult Blood-Urine 10 /ul (Negative); Protein-Dipstick Negative (Negative); Urine Bilirubin Dipstick Negative (Negative); Urine Clarity Clear (Clear); Urine Urobilinogen Normal (Normal)
[2023-04-16 18:26] LABS: Squamous Epithelial Cells - UA 0-5 SEEN /hpf (5-10); White Blood Cells 0-5 SEEN /hpf (0-5)
[2023-04-16 19:02] VITALS: BP 112/76; PULSE 64; RESP 14; O2SAT 98
== END 2023-04-16 19:07 | disposition home or self-care (01) ==
PROVIDERS: Emergency Provider Emergency Medicine; PCP Family Medicine; Visit Provider Emergency Medicine
DX: R42 Dizziness and giddiness (principal); E78.00 Pure hypercholesterolemia, unspecified; R51.9 Headache, unspecified; Z86.73 Personal history of transient ischemic attack (TIA), and cerebral infarction without residual deficits; F41.8 Other specified anxiety disorders; Z79.82 Long term (current) use of aspirin; Z79.899 Other long term (current) drug therapy; K21.9 Gastro-esophageal reflux disease without esophagitis; Z90.49 Acquired absence of other specified parts of digestive tract; R20.2 Paresthesia of skin
CPT/HCPCS: 70450; 80053; 81001; 82962; 84484; 85025; 85610; 85730; 87428; 93005; 99284

== ENCOUNTER → 2023-05-20 | Outpatient (CLI) | payer BC, SELFPAY ==
--- NOTE | 2023-05-20 09:51 | RAD_ITS ---
STUDY: X-RAY CHEST REASON FOR EXAM: Female, 53 years old. Cough and chest tightness. TECHNIQUE: PA and lateral views of the chest. COMPARISON: Comparison is made with prior study dated August 26, 2001. FINDINGS: Hyperinflation. The lungs are clear. There is no demonstrated pleural abnormality. Normal size heart. Normal mediastinum and quynh. Normal visualized pulmonary arteries. Normal visualized aortic arch and descending thoracic aorta. Normal visualized thoracic spine. Normal visualized ribs, clavicles, and shoulders. There is no demonstrated abnormality of the visualized soft tissue structures of the upper abdomen. RAD/Chest PA and Lateral IMPRESSION: Hyperinflation. Electronically Signed: Evaristo Newby MD at 10:07 EDT ,
== END | disposition home or self-care (01) ==
LOC: MTLAB 09:50
PROVIDERS: PCP Family Medicine; Visit Provider Family Medicine
DX: J32.9 Chronic sinusitis, unspecified (principal)
CPT/HCPCS: 71046

== ENCOUNTER → 2023-11-11 | Outpatient (CLI) | payer BC, SELFPAY ==
--- NOTE | 2023-11-11 15:57 | US_ITS ---
STUDY: THYROID ULTRASOUND REASON FOR EXAM: Female, 53 years old. Thyroid nodules. TECHNIQUE: Ultrasound evaluation of the thyroid was performed with real-time and static mora-scale imaging. COMPARISON: Comparison is made with prior study November 05, 2022. FINDINGS: RIGHT LOBE: The right lobe of the thyroid gland is enlarged and measures 5.7 cm x 1.4 cm x 2.1 cm. There is a heterogeneous echotexture. Once again, solid and cystic nodules are seen within the right lobe. The largest measures 3.1 cm x 1.7 cm x 2 cm. This is in the lower and midportion of the right lobe. LEFT LOBE: The left lobe of the thyroid gland measures 4.9 cm x 1 cm x 1.4 cm. There is a homogeneous echotexture. There are no demonstrated solid, cystic or complex lesions. ISTHMUS: The isthmus measures 2.9 mm. The regional lymph nodes are normal. US/Thyroid IMPRESSION: Heterogeneous enlargement of the right lobe of the thyroid with stable nodules in the right lobe of the thyroid. Electronically Signed: Evaristo Newby MD at 12:37 EDT ,
--- OUTSIDE RECORDS SUMMARY | 2023-11-11 22:15 | XMS RPT_ITS | CCD ---
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 Name Role Phone MARTÍN SRIVASTAVA, DR GARCIA Primary Care Physician DIAZ MEJÍA DO Primary Care Physician GREG DREW MD, DR MAGAÑA Attending [facility] DIAZ MEJÍA DO Primary Care Unavailable GREG DREW MD, DR MAGAÑA Attending [facility] ALFONZO DIAZ GORDON Primary Care Unavailable GREG DREW MD, DR MAGAÑA Attending [facility] DIAZ MEJÍA DO Primary Care Unavailable Allergies Allergy Classification Reported Allergen(s) Allergy Type Date of Onset Reaction(s) Facility (2 sources) Amoxicillin / Clavulanate; Translations: [amoxicillin-clavula teto] Drug Allergy Upset stomach (finding) [facility] ([facility] sources) Escitalopram; Translations: [escitalopram] Drug Allergy Antidepressant (substance) [facility] (2 sources) moxifloxacin; Translations: [moxifloxacin] Drug Allergy Dizziness (finding) [facility] (2 sources) Penicillin; Translations: [penicillin] Drug Allergy Nausea (finding) [facility] (2 sources) Sertraline; Translations: [sertraline] Drug Allergy Unknown (qualifier value) [facility] (2 sources) Sulfamethoxazole / Trimethoprim; Translations: [sulfamethoxazole-tr imethoprim] Drug Allergy Nausea (finding) [facility] (2 sources) venlafaxine; Translations: [venlafaxine] Drug Allergy Unknown (qualifier value) [facility] Medications Current Medications Medication Drug Class(es) Dates Sig (Normalized) Sig (Original) aspirin 81 mg delayed release oral tablet (2 sources) Platelet Aggregation Inhibitor, Nonsteroidal Anti-inflammatory Drug Start: 12-31-2021 aspirin 81 mg oral delayed release tablet Dose : 81 mg = 1 tab(s), Oral, Daily, 0 Refill(s) Start Date: 12/31/21 Status: Ordered 24 hr buPROPion hydrochloride 150 mg extended release oral tablet (2 sources) Aminoketone Start: 12-31-2021 take 1 tablet by mouth every hour, then take 1 tablet by mouth every twenty-four hours buPROPion 150 mg/24 hours (XL) oral tablet, extended release Dose : 150 mg = 1 tab(s), Oral, q24h, 0 Refill(s) Start Date: 12/31/21 Status: Ordered fluticasone propionate 0.05 mg/actuat metered dose nasal spray (2 sources) Corticosteroid Start: 12-31-2021 take 1 dose nasal route once daily in the morning as needed fluticasone 50 mcg/inh NASAL spray Dose = 2 spray(s), Nostril, each, qAM, PRN 2 sprays, 0 Refill(s) Start Date: 12/31/21 Status: Ordered Ipratropium (2 sources) Anticholinergic Start: 12-31-2021 ipratropium (0.03%) nasal 21 mcg/spray (Atrovent Nasal) Nasal, PRN every 6 hours, 0 Refill(s) Start Date: 12/31/21 Status: Ordered omeprazole 40 mg delayed release oral capsule (2 sources) Proton Pump Inhibitor Start: 12-31-2021 omeprazole 40 mg oral delayed release capsule Dose : 40 mg = 1 cap(s), Oral, qDay, 0 Refill(s) Start Date: 12/31/21 Status: Ordered rosuvastatin calcium 20 mg oral tablet (2 sources) HMG-CoA Reductase Inhibitor Start: 12-31-2021 rosuvastatin 20 mg oral tablet Dose : 20 mg = 1 tab(s), Oral, Daily, 0 Refill(s) Start Date: 12/31/21 Status: Ordered traZODone hydrochloride 50 mg oral tablet (2 sources) Serotonin Reuptake Inhibitor Start: 12-31-2021 traZODone 50 mg oral tablet Dose : 25 mg = 0.5 tab(s), Oral, qHS, PRN as needed for sleep, 0 Refill(s) Start Date: 12/31/21 Status: Ordered Problems Problem Classification Problem Date Documented Da te Episodic/Chronic Administrative/social admission (2 sources) Activity intolerance 01-29-2022 Episodic Cardiac dysrhythmias (2 sources) Atrial tachycardia 01-29-2022 Chronic Malaise and fatigue (2 sources) Fatigue 01-29-2022 Episodic Residual codes; unclassified (2 sources) FH: premature coronary heart disease 01-29-2022 Episodic Results Test Name Value Interpretation Reference Range Facil ity Encounters Encounter Date Encounter Type Care Provider Facility Start: 06-17-2023 End: 06-18-[address] GÓMEZ DREW MD Facility:A Start: 06-17-2023 End: 06-17-[address] GÓMEZ DREW MD [facility] Start: 06-07-2023 End: 06-08-[address] GÓMEZ DREW MD Facility:B Start: 03-25-[address] GÓMEZ DREW MD Facility:A Start: 04-03-2022 End: 04-03-2022 [facility] Procedures Date Procedure Procedure Detail Performing Clinician Start: 04-03-[address] GÓMEZ DREW MD Payers Date Payer Category Payer Unknown [id number] 2023 Unknown [id number] 1970 Unknown [id number] 1970 Unknown [id number] 1970 Unknown [id number] Social History Date Type Detail Facility Start: 12-31-2021 Tobacco smoking status Never s moked tobacco (finding) [facility] [place] Sex Assigned At Sex [facility] Clinical Note 12-25-2020 Note Date & Type Note Facility 12-25-2020 Note HNO ID: [id number] Author: Ju Nunes APRN.CRNA Service: ? 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 Type: Anesthesia Procedure Notes Filed: 12/25/2020 9:14 AM Note Text: ANESTHESIOLOGY PROCEDURE NOTE Airway General Information Procedure Start Time/Medication Administration: 12/25/2020 9:01 AM Patient location during procedure: OR Timeout Performed Pre-procedure: timeout performed Consent Obtained: Yes Patient identity confirmed: arm band and patient Staffing SHIPYARD PAINTER: Ju Nunes APRN.SHIPYARD PAINTER Performed by: KELLIE Indications and Patient Condition Preoxygenated: yes Patient position: sniffing Manual In-Line Stabilization: No Difficult Mask: No Indications for airway management: anesthesia anesthesia circuit Method: asleep Cricoid Pressure: No Final Airway Details Final airway type: endotracheal airway Final Endotracheal Airway: ETT Successful intubation technique: direct laryngoscopy Blade: Anshu Blade size: #3 ETT size (mm): 6.5 Measured from: lips Measurement (cm): 20 Placement verified by: chest auscultation Cormack-Lehane Classification: grade I - full view of glottis Number of attempts at approach: 1 Failed airway: no Unrecognized esophageal intubation: no Airway not difficult SIGNATURE: Ju Nunes APRN.CRNA PATIENT NAME: Myra Ruiz DATE: December 25, 2020 TIME: 9:13 AM CSN: [id number] [facility] Evaluation + Plan note Note Date & Type Note Facility Evaluation + Plan note Future Appointments Appointment Date:04/17/2022 04:00:00 PM Scheduled Provider: Location:[facility] Appointment Type:[facility] Evaluation + Plan note Radiology Note Date & Type Note Facility Evaluation + Plan note Future Appointments Appointment Date:06/25/2023 04:15:00 PM Scheduled Provider: Location:[facility] Appointment Type:CV OV Future Scheduled TestsCT Coronary Calcium Score w/o Contrast 05/17/23 [facility] Hospital course Narrative Note Date & Type Note Facility Hospital course Narrative No data available for this section [facility] Hospital Discharge instructions Note Date & Type Note Facility Hospital Discharge instructions No data available for this section [facility] Note Note Date & Type Note Facility Note SHAQ PEDRO MD: SIGN, VERIFY Event Display: Echocardiogram Stress - CV Authored Date: [facility] Progress note Note Date & Type Note Facility Progress note No data available for this section [facility] Summary Purpose Family History No Family History Records Found No data available for this section No Family History Records Found Advance Directives No Advanced Directives Records FoundNo Advanced Directives Records Found Additional Source Comments INFORMATION SOURCE (unrecogn ized section and content) DATE CREATED AUTHOR AUTHOR'S ORGANIZ ATION 06/26/2023 [facility] ([place]) Care Team (unrecognized sect ion and content) Care Team Personnel Name: JOSE RESENDIZ MD Member Role: Primary Care Physician Address: Address: [address] [place] [id number]- Care Team Related Persons Name: EULALIO RUIZ Address: [address] [phone] [place] Address: [address] [phone] Name: SUSANNE RUIZ Patient Care team informatio n (unrecognized section and content) Care Team Personnel Name: DIAZ MEJÍA DO Member Role: Primary Care Physician Address: Address: [address] [place] [id number]- Care Team Related Persons Name: EULALIO RUIZ Address: [address] [phone] [place] Address: [address] [id number] Name: SUSANNE RUIZ FOR RECORDS PERTAINING TO PATIENTS WHO ARE OR HAVE BEEN ENROLLED IN A CHEMICAL DEPENDENCY/SUBSTANCEABUSE PROGRAM, SOME INFORMATION MAY BE OMITTED. This clinical summary was aggregated from multiple sources. Caution should be exercised in using it in the provision of clinical care. This summary normalizes information from multiple sources, and as a consequence, information in this document may materially change the coding, format and clinical context of patient data. In addition, data may be omitted in some cases. CLINICAL DECISIONS SHOULD BE BASED ON THE PRIMARY CLINICAL RECORDS. [facility] provides no warranty or guarantee of the accuracy or completeness of information in this document.
== END | disposition home or self-care (01) ==
LOC: US 15:54
PROVIDERS: PCP Family Medicine; Referring Provider Family Medicine; Visit Provider Family Medicine
DX: E07.9 Disorder of thyroid, unspecified (principal)
CPT/HCPCS: 76536

== ENCOUNTER → 2024-02-02 | Outpatient (CLI) | payer BC, SELFPAY ==
--- NOTE | 2024-02-02 09:03 | NM_ITS ---
CLINICAL: 54-year-old female with history of thyroid nodularity. I-123 THYROID UPTAKE and SCAN COMPARISON: Thyroid ultrasound report 11/11/2023 FINDINGS: The patient was administered a 303 uCi I-123 capsule by mouth. The 4-hour I-123 radioactive iodine thyroidal uptake was calculated to be 6.2 % (normal 5 to 25 %). The 24-hour I-123 radioactive iodine thyroidal uptake was calculated to be 18.9 % (normal 5 to 40 %). The I-123 thyroid scan demonstrates homogeneous radiopharmaceutical concentration throughout both lobes of a U -shaped thyroid gland. There are no colloidal parenchymal hypofunctioning cold nodules noted in either lobe of the thyroid gland. Uptake is relatively accentuated in the midpole of the right thyroid lobe. NM/Thyroid Uptake Single or Mult IMPRESSION: 1. NORMAL 4- and 24-hour I-123 radioactive iodine thyroidal uptakes. 2. 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 (Jr et al, J Nucl Med 32: 1455, 1991). 3. No hypofunctioning-cold nodules are identified. Electronically Signed: Gabriel Hein DO at 11:05 EDT ,
== END | disposition home or self-care (01) ==
LOC: NM 08:58
PROVIDERS: PCP Family Medicine; Referring Provider Family Medicine; Visit Provider Family Medicine
DX: R93.89 Abnormal findings on diagnostic imaging of other specified body structures (principal)
CPT/HCPCS: 78012; A9516

== ENCOUNTER → 2024-03-24 | Outpatient (CLI) | payer BC, SELFPAY ==
--- NOTE | 2024-03-24 15:09 | BI_ITS ---
MAMMOGRAPHY - BILATERAL SCREENING REASON FOR EXAM: Female, 54 years old. Routine annual screening examination. PERTINENT HISTORY: Non-contributory. TECHNIQUE: Digital bilateral breast jorge (3D mammographic acquisition) in the CC and MLO projections. 2-D mediolateral oblique (MLO) and craniocaudad (CC) views of both breasts were obtained. CAD: Full Field Digital Mammography with Computer Added Detection was performed. COMPARISON: Comparison is made with prior study dated March 09, 2023 and February 24, 2022. FINDINGS: Breast Composition: The breasts are heterogeneously dense, which may obscure small masses. There are no dominant masses or suspicious calcifications. No other significant abnormalities are identified. There has been no significant change since the prior study. BI/SCRN MAMM (CAD)W/JORGE BILAT IMPRESSION: Stable bilateral screening mammogram. Yearly follow-up mammogram recommended. (A) ASSESSMENT CATEGORY: BIRADS Category 1: Negative. A letter regarding these results will be sent to the patient by the facility within 30 days. Approximately 10% of breast cancers are not detected by mammography. A normal mammogram should not delay biopsy of a clinically suspicious abnormality. [id number] Electronically Signed: Evaristo Newby MD at 8:23 EDT ,
== END | disposition home or self-care (01) ==
LOC: OPBI 15:08
PROVIDERS: PCP Family Medicine; Visit Provider Nurse Practitioner Family
DX: Z12.31 Encounter for screening mammogram for malignant neoplasm of breast (principal)
CPT/HCPCS: 77063; 77067

== ENCOUNTER → 2024-08-16 | Outpatient (CLI) | payer BC, SELFPAY ==
[2024-08-16 09:01] LABS: Cholesterol 169 mg/dL (200); High Density Lipoprotein 61 mg/dL; Triglycerides 108 mg/dL; Very Low Density Lipoprotein 22 mg/dL (5-40)
== END | disposition home or self-care (01) ==
LOC: LAB 07:18
PROVIDERS: PCP Family Medicine
DX: E78.5 Hyperlipidemia, unspecified (principal)
CPT/HCPCS: 36415; 80061

== ENCOUNTER → 2025-04-09 | Outpatient (CLI) | payer BC, SELFPAY ==
--- NOTE | 2025-04-09 14:30 | BI_ITS ---
EXAM: SCRN MAMM (CAD)W/JORGE BILAT DATE: 04/09/2025 CLINICAL HISTORY: F, Age 55 y/o , SCREEN FOR BREAST CANCER TECHNIQUE: SCRN MAMM (CAD)W/JORGE BILAT COMPARISON: Prior exam(s) were compared FINDINGS: TISSUE DENSITY: The breasts are heterogeneously dense, which may obscure small masses. Bilateral Breast Mammographic Findings: No suspicious masses, calcifications or other abnormalities are identified. BI/SCRN MAMM (CAD)W/JORGE BILAT IMPRESSION: No mammographic evidence of malignancy in either breast OVERALL FINAL ASSESSMENT BI-RADS 1: NEGATIVE. RECOMMENDATION: Routine annual follow-up in 1 Year A letter with findings and recommendations will be mailed to the patient. Reading Location: [id number]
--- NOTE | 2025-04-09 14:30 | BI_ITS ---
EXAM: SCRN MAMM (CAD)W/JORGE BILAT DATE: 04/09/2025 CLINICAL HISTORY: F, Age 55 y/o , SCREEN FOR BREAST CANCER TECHNIQUE: SCRN MAMM (CAD)W/JORGE BILAT COMPARISON: Prior exam(s) were compared FINDINGS: TISSUE DENSITY: The breasts are heterogeneously dense, which may obscure small masses. Bilateral Breast Mammographic Findings: No suspicious masses, calcifications or other abnormalities are identified. BI/SCRN MAMM (CAD)W/JORGE BILAT IMPRESSION: No mammographic evidence of malignancy in either breast OVERALL FINAL ASSESSMENT BI-RADS 1: NEGATIVE. RECOMMENDATION: Routine annual follow-up in 1 Year A letter with findings and recommendations will be mailed to the patient. Reading Location: [id number]
== END | disposition home or self-care (01) ==
LOC: OPBI 14:24
PROVIDERS: PCP Family Medicine; Referring Provider Nurse Practitioner Family; Visit Provider Nurse Practitioner Family
DX: Z12.31 Encounter for screening mammogram for malignant neoplasm of breast (principal)
CPT/HCPCS: 77063; 77067

== ENCOUNTER → 2025-08-11 | Outpatient (CLI) | payer BC, SELFPAY ==
--- OUTSIDE RECORDS SUMMARY | 2025-08-11 08:41 | XMS RPT_ITS | CCD ---
Author Organization [facility] CliniSy[facility] Care Team Providers Care Sonogram Technician Name Role Phone Dr. Lukasz Toledo Primary Care Provider Dr. Maged Jimenez Attending Provider Dr. Kalia Ho Referring Provider Cammie [employer] CLEANER, [employer]-C Danika Attending Provider DR JOSE TOLEDO MD Primary Care Physician Dr. Lukasz Toledo Referring Provider Cammie KUHN, BAM-C Danika Attending Provider JohnDO Diaz lopez Primary Care Provider DIAZ LOPEZ DO Primary Care Physician GREG DREW MD, DR MAGAÑA Attending Unav ailable JOHN DO, DIAZ Primary Care Unavailable GREG DREW MD, DR MAGAÑA Attending Unav ailable JOHN DO, DIAZ Primary Care Unavailable GREG DREW MD, DR MAGAÑA Attending Unav ailable JOHN DO, DIAZ Primary Care Unavailable Dash Wang MD Primary Care Provider Joselito KUHN-Tricia Perera Attending Provider Joselito KUHN-CTricia Referring Provider Dash Wang MD Referring Provider [phone] Tricia Yee Attending Unavailable Dahs Wang Referring Unavailable Felipe, Chalon Primary Care Unavailable MAGDI EISENBERG Referring Unavailable MAGDI EISENBERG Attending Unavailable Felipe, Chalon Primary Care Unavailable Felipe, Chalon Primary Care Unavailable Tricia Yee Referring Unavailable Tricia Yee Attending Unavailable Allergies Allergy Classification Reported Allergen(s) Allergy Type Date of Onset Reaction(s) Facility (14 sources) venlafaxine; Translations: [venlafaxine] Drug Allergy 02-05-20 Unknown (qualifier value) [facility] Comment on above: makes her feel like skin is crawling (2 sources) Amoxicillin / Clavulanate; Translations: [amoxicillin-clavul anate] Drug Allergy Upset stomach (finding) [facility] (2 sources) Escitalopram; Translations: [escitalopram] Drug Allergy Antidepressant (substance) [facility] (2 sources) moxifloxacin; Translations: [moxifloxacin] Drug Allergy Dizziness (finding) [facility] (2 sources) Penicillin; Translations: [penicillin] Drug Allergy Nausea (finding) [facility] (2 sources) Sertraline; Translations: [sertraline] Drug Allergy Unknown (qualifier value) [facility] (2 sources) Sulfamethoxazole / Trimethoprim; Translations: [sulfamethoxazole-t rimethoprim] Drug Allergy Nausea (finding) [facility] (1 source) venlafaxine Drug Allergy 05-09-20 [facility] Repository Medications Current Medications Medication Drug Class(es) Dates Sig (Normalized) Sig (Original) aspirin 81 mg delayed release oral tablet (14 sources) Platelet Aggregation Inhibitor, Nonsteroidal Anti-inflammatory Drug Start: 12-31-2021 aspirin 81 mg oral delayed release tablet Dose : 81 mg = 1 tab(s), Oral, Daily, 0 Refill(s) Start Date: 12/31/21 Status: Ordered Start: 09-30-2019 take 1 tablet by chaz th once daily Aspirin 81 MG tablet,chewable Active 81 mg PO DAILY@0800 30 0 September 30, 2019 1:00am 24 hr buPROPion hydrochloride 150 mg extended release oral tablet (20 sources) Aminoketone Start: 12-31-2021 take 1 tablet by mouth every hour, then take 1 tablet by mouth every twenty-four hours buPROPion 150 mg/24 hours (XL) oral tablet, extended release Dose : 150 mg = 1 tab(s), Oral, q24h, 0 Refill(s) Start Date: 12/31/21 Status: Ordered Start: 10-13-2017 take 1 tablet by chaz th once daily in the morning Bupropion Hcl 150 mg tablet extended release 24 hr Active 150 mg PO EVERY MORNING October 13, 2017 1:00am Start: 08-24-2017 End: 10-13-2017 take 1 tablet by mouth once daily Bupropion Hcl (Wellbutrin Sr) 150 mg tablet extended release 12 hr Discontinued 150 mg PO daily August 24, 2017 1:00am October 13, 2017 10:45am Clascoterone (8 sources) Start: 02-18-2023 Clascoterone ( Winlevi) 1 % cream Active 1 NMA TOPICAL TWICE A DAY February 18, 2023 12:00am Start: 02-18-2023 Clascoterone ( Winlevi) 1 % cream Active 1 APPLIC TOPICAL TWICE A DAY February 18, 2023 12:00am fluticasone propionate 0.05 mg/actuat metered dose nasal spray (20 sources) Corticosteroid Start: 12-31-2021 take 1 dose nasal route once daily in the morning as needed fluticasone 50 mcg/inh NASAL spray Dose = 2 spray(s), Nostril, each, qAM, PRN 2 sprays, 0 Refill(s) Start Date: 12/31/21 Status: Ordered Start: 10-19-2019 Fluticasone Pr opionate 50 mcg/actuation spray,suspension Active 1 NMA INTRANASAL DAILY October 19, 2019 1:00am administer into each nostril Start: 10-19-2019 take 1 spray(s) nasa l route once daily Fluticasone Propionate Active 1 SPRAY INTRANASAL DAILY October 19, 2019 1:00am administer into each nostril Start: 10-13-2017 End: 10-18-2018 Fluticasone Propionate 50 mc g/actuation spray,suspension Discontinued 50 ug INTRANASAL ONCE October 13, 2017 1:00am October 18, 2018 1:59pm ipratropium bromide 0.021 mg/actuat metered dose nasal spray (12 sources) Anticholinergic Start: 02-17-2022 Ipratropium Br omide 21 mcg (0.03 %) spray,non-aerosol Active 2 NMA INTRANASAL 2 to 3 times per day as needed February 17, 2022 12:00am administer into each nostril Start: 02-17-2022 Ipratropium Br omide Active 2 SPRAY INTRANASAL 2 to 3 times per day February 17, 2022 12:00am administer into each nostril Start: 12-31-2021 ipratropium (0 .03%) nasal 21 mcg/spray (Atrovent Nasal) Nasal, PRN every 6 hours, 0 Refill(s) Start Date: 12/31/21 Status: Ordered omeprazole 40 mg delayed release oral capsule (14 sources) Proton Pump Inhibitor Start: 11-25-2020 take 1 capsule by mouth once daily Omeprazole 40 MG capsule,delayed release(DR/EC) Active 40 mg PO DAILY November 25, 2020 12:00am rosuvastatin calcium 20 mg oral tablet (14 sources) HMG-CoA Reductase Inhibitor Start: 11-13-2019 take 1 tablet by mouth once daily Rosuvastatin (Crestor) 20 mg tablet Active 20 mg PO DAILY November 13, 2019 12:00am traZODone hydrochloride 50 mg oral tablet (20 sources) Serotonin Reuptake Inhibitor Start: 02-17-2022 Trazodone 50 mg tablet Active 25 mg PO AT BEDTIME February 17, 2022 9:10am Start: 02-17-2022 take 25 mg by mouth at bedtime Trazodone Active 25 MG PO AT BEDTIME February 17, 2022 9:10am Start: 11-25-2020 End: 02-17-2022 take 1 tablet by mouth at bedtime Trazodone 50 MG tablet Discontinued 50 mg PO AT BEDTIME November 25, 2020 12:00am February 17, 2022 9:11am Completed/Discontinued Medications Medication Drug Class(es) Dates Sig (Normalized) Sig (Original) amoxicillin 875 mg oral tablet (12 sources) Penicillin-class Antibacterial Start: 10-15-2018 End: 05-21-2019 take 1 tablet by mouth twice daily Amoxicillin 875 mg tablet Discontinued 875 mg PO TWICE A DAY 20 0 October 15, 2018 1:00am May 21, 2019 10:01am amoxicillin 875 mg / clavulanate 125 mg oral tablet (12 sources) Penicillin-class Antibacterial Start: 05-21-2019 End: 05-28-2019 Amoxicillin-Pot Clavulanate (Augmentin) 875-125 mg tablet Discontinued 1 {tbl} PO TWICE A DAY 14 7 0 May 21, 2019 12:00am May 27, 2019 12:00am May 28, 2019 12:08am Acute maxillary sinusitis, unspecified atorvastatin 40 mg oral tablet (20 sources) HMG-CoA Reductase Inhibitor Start: 09-30-2019 End: 11-13-2019 take 1 tablet by mouth at bedtime Atorvastatin 40 MG tablet Discontinued 40 mg PO AT BEDTIME 30 0 September 30, 2019 1:00am November 13, 2019 2:25pm Start: 09-23-2018 End: 09-30-2019 take 1 tablet by mouth once daily Atorvastatin (Lipitor) 10 mg tablet Discontinued 10 mg PO DAILY September 23, 2018 1:00am September 30, 2019 2:17pm calcium citrate 950 mg oral tablet (12 sources) Start: 10-13-2017 End: 10-18-2018 take 1 tablet by mouth twice daily Calcium Citrate 200 mg (950 mg) tablet Discontinued 500 mg PO TWICE A DAY October 13, 2017 1:00am October 18, 2018 1:59pm Estradiol-Norethind john Acet (20 sources) Estrogen Start: 10-18-2018 End: 10-19-2019 take 0.5 tablet by mouth once daily Estradiol-Norethindron e Acet 0.5-0.1 mg tablet Discontinued 1 {tbl} PO daily 84 3 October 18, 2018 2:04pm October 19, 2019 11:57am Start: 10-18-2018 End: 10-19-2019 take 1 tablet by mouth once daily Estradiol-Norethindrone Acet Discontinue d 1 TABLET PO daily 84 October 18, 2018 1:04pm October 19, 2019 10:57am Start: 10-18-2018 End: 10-19-2019 take 1 tablet by mouth once daily Estradiol-Norethindrone Acet Discontinue d 1 TABLET PO daily 84 October 18, 2018 2:04pm October 19, 2019 11:57am Start: 09-05-2018 End: 10-18-2018 take 0.5 tablet by mouth once daily Estradiol-Norethindrone Acet 0.5-0.1 mg tablet Discontinued 1 {tbl} PO daily 84 3 September 05, 2018 10:28am October 18, 2018 2:05pm Start: 09-05-2018 End: 10-18-2018 take 1 tablet by mouth once daily Estradiol-Norethindrone Acet Discontinue d 1 TABLET PO daily 84 September 05, 2018 9:28am October 18, 2018 1:05pm Start: 09-05-2018 End: 10-18-2018 take 1 tablet by mouth once daily Estradiol-Norethindrone Acet Discontinue d 1 TABLET PO daily 84 September 05, 2018 10:28am October 18, 2018 2:05pm Start: 10-13-2017 End: 09-05-2018 take 1 tablet by mouth once daily Estradiol-Norethindrone Acet Discontinue d 1 TABLET PO daily 84 October 13, 2017 10:57am September 05, 2018 10:28am Start: 10-13-2017 End: 10-13-2017 Estradiol-Norethindrone Acet (Activella) 0.5-0.1 mg tablet Discontinued 1 TABLET PO daily October 13, 2017 10:44am October 13, 2017 10:45am Start: 10-13-2017 End: 10-13-2017 take 0.5 tablet by mouth once daily Estradiol-Norethindrone Acet (Activella) 0.5-0.1 mg tablet Discontinued 1 {tbl} PO daily October 13, 2017 1:00am October 13, 2017 10:45am Start: 10-13-2017 End: 09-05-2018 take 0.5 tablet by mouth once daily Estradiol-Norethindrone Acet 0.5-0.1 mg tablet Discontinued 1 {tbl} PO daily 84 3 October 13, 2017 1:00am September 05, 2018 10:28am Start: 10-13-2017 End: 10-13-2017 Estradiol-Norethindrone Acet (Activella) 0.5-0.1 mg tablet Discontinued 1 TABLET PO daily October 13, 2017 12:00am October 13, 2017 9:45am Start: 10-13-2017 End: 09-05-2018 take 1 tablet by mouth once daily Estradiol-Norethindrone Acet Discontinue d 1 TABLET PO daily 84 October 13, 2017 12:00am September 05, 2018 9:28am Start: 10-13-2017 End: 10-13-2017 Estradiol-Norethindrone Acet (Activella) 0.5-0.1 mg tablet Discontinued 1 TABLET PO daily October 13, 2017 1:00am October 13, 2017 10:45am Start: 10-13-2017 End: 09-05-2018 take 1 tablet by mouth once daily Estradiol-Norethindrone Acet Discontinue d 1 TABLET PO daily October 13, 2017 1:00am September 05, 2018 10:28am Start: 08-24-2017 End: 10-13-2017 Estradiol-Norethindrone Acet (Activella) 0.5-0.1 mg tablet Discontinued 1 TABLET PO daily August 24, 2017 3:02pm October 13, 2017 10:59am Start: 08-24-2017 End: 10-13-2017 take 0.5 tablet by mouth once daily Estradiol-Norethindrone Acet (Activella) 0.5-0.1 mg tablet Discontinued 1 {tbl} PO daily August 24, 2017 1:00am October 13, 2017 10:59am Start: 08-24-2017 End: 10-13-2017 Estradiol-Norethindrone Acet (Activella) 0.5-0.1 mg tablet Discontinued 1 TABLET PO daily August 24, 2017 12:00am October 13, 2017 9:59am Start: 08-24-2017 End: 10-13-2017 Estradiol-Norethindrone Acet (Activella) 0.5-0.1 mg tablet Discontinued 1 TABLET PO daily August 24, 2017 1:00am October 13, 2017 10:59am meclizine hydrochloride 25 mg oral tablet (17 sources) Antiemetic Start: 04-16-2023 End: 05-09-2025 take 1 tablet by mouth three times daily as needed for dizziness Meclizine 25 mg tablet Discontinued 25 mg PO THREE TIMES A DAY as needed for dizziness 20 0 April 16, 2023 6:50pm May 09, 2025 10:24am Start: 09-30-2019 End: 10-19-2019 take 1 tablet by mouth twice daily as needed Meclizine 12.5 MG tablet Discontinued 12.5 mg PO TWICE DAILY NEEDED as needed for Vertigo September 30, 2019 1:00am October 19, 2019 11:57am Multivitamin,Jo-Ytzj-Hivdnbc s (Complete Multivitamin) tablet (2 sources) Start: 10-13-2017 End: 10-18-2018 Multivitamin,Qd-Dxnz-Ganldks s (Complete Multivitamin) tablet Discontinued 1 {tbl} PO daily October 13, 2017 1:00am October 18, 2018 1:59pm multivitamin,ym-hvqq-xdhkevt s tablet (10 sources) Start: 10-13-2017 End: 10-18-2018 take 1 tablet by mouth once daily multivitamin,eh-gekp-mtgksqmr tablet Discontinued 1 TABLET PO daily October 13, 2017 10:44am October 18, 2018 1:59pm Start: 10-13-2017 End: 10-18-2018 take 1 tablet by mouth once daily multivitamin,jl-nezd-xhyuicqq tablet Discontinued 1 TABLET PO daily October 13, 2017 12:00am October 18, 2018 12:59pm Start: 10-13-2017 End: 10-18-2018 take 1 tablet by mouth once daily multivitamin,xo-jmrm-oyapbpyb tablet Discontinued 1 TABLET PO daily October 13, 2017 1:00am October 18, 2018 1:59pm pantoprazole 40 mg delayed release oral tablet (12 sources) Proton Pump Inhibitor Start: 09-23-2018 End: 10-18-2018 Pantoprazole (Protonix) 40 mg tablet,delayed release (DR/EC) Discontinued 40 mg PO .prn September 23, 2018 1:00am October 18, 2018 1:59pm Problems Active Problems Problem Classification Problem Date Documented Date Episodic/Chronic Administrative/social admission (2 sources) Activity intolerance 01-29-2022 Episodic Cancer of cervix (18 sources) Atypical squamous cells of undetermined significance on cervical Papanicolaou smear; Translations: [Atypical squamous cells of undetermined significance on cytologic smear of cervix (ASC-US)] Episodic Comment on above: Repeat pap in 2021:n eg pap and [id number]: Cardiac dysrhythmias (2 sources) Atrial tachycardia 01-29-2022 Chronic Conditions associated with dizziness or vertigo (5 sources) Dizziness; Translations: [Dizziness and giddiness] 04-16-2023 Episodic Disorders of lipid metabolism (1 source) Hyperlipidemia, unspecified; Translations: [Hyperlipidemia, unspecified] Onset: 09-20-2024 Chronic Headache; including migraine (12 sources) Headache; Translations: [Headache] 09-30-2019 Episodic Malaise and fatigue (2 sources) Fatigue 01-29-2022 Episodic Other nervous system disorders (12 sources) Facial paresthesia; Translations: [Paresthesia of skin] 09-30-2019 Episodic Other nervous system disorders (12 sources) Paresthesia of left upper limb; Translations: [Paresthesia of skin] 09-30-2019 Episodic Other nervous system disorders (5 sources) Paresthesia; Translations: [Paresthesia of skin] 04-16-2023 Episodic Other screening for suspected conditions (not mental disorders or infectious disease) (1 source) Encounter for screening mammogram for malignant neoplasm of breast; Translations: [Encounter for screening mammogram for malignant neoplasm of breast] Onset: 05-09-2025 Episodic Residual codes; unclassified (18 sources) Abnormal cytology findings; Translations: [Low grade squamous intraepithelial lesion (LGSIL)] Episodic Comment on above: Neg HPV. colp negati ve 11/16. suspect urogenital atrophy, not a candidate for estrogen. plan repeat pap hpv in 1 year Residual codes; unclassified (2 sources) FH: premature coronary heart disease 01-29-2022 Episodic Thyroid disorders (12 sources) Non-toxic multinodular goiter; Translations: [Nontoxic multinodular goiter] 11-25-2020 Chronic Transient cerebral ischemia (12 sources) Transient cerebral ischemia; Translations: [Transient cerebral ischemic attack, unspecified] 11-25-2020 Chronic Past or Other Problems Problem Classification Problem Date Documented Da te Episodic/Chronic Unclassified (9 sources) history of melanoma removed off of wrist 03-19-2022 Results Test Name Value Interpretation Reference Range Facility President[employer] Office Visit Reporton 05-09-2025 President/[employer] Office Visit Report [facility] [address], [address] [place] [address] OFFICE VISIT Date of Service: 05/09/25 MR#: [id number] Acct: [id number] Name: JOSEPHMYRA ANN Rep #: [id number] : 1970 Provider: LÓPEZ Lagos Age/Sex: 55/F [place] [facility] [place]: Signed Intake Vital Signs 02/24/24 09:30 05/09/25 10:20 Height 5 ft 4 in 5 ft 4 in Weight: 112 lb 8 oz BMI 19.3 BP 145/83 H Intake Visit 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 Specialist Required: No Is patient in pain?: No Allergies venlafaxine (From Effexor) Allergy (Intermediate, Verified 05/09/25 10:23) skin crawling Medications ???Medication ???Instructions ???Recorded ???Confirmed ???Type bupropion HCl 150 mg 24 hr tablet, 150 mg PO QAM 10/13/17 05/09/25 History extended release aspirin 81 mg chewable tablet 81 mg PO DAILY@0800 ##30 09/30/19 05/09/25 Rx fluticasone propionate 50 1 spray intranasal DAILY 10/19/19 05/09/25 History mcg/actuation nasal spray,suspension rosuvastatin 20 mg tablet (Crestor) 20 mg PO DAILY 11/13/19 5 History omeprazole 40 mg capsule,delayed 40 mg PO DAILY 11/25/20 05/09/25 H istory release ipratropium bromide 21 mcg (0.03 2 spray intranasal BID-TID PRN 05/09/25 History %) nasal spray trazodone 50 mg tablet 25 mg PO QHS 02/17/22 05/09/25 His tory clascoterone 1 % topical cream 1 applic topical BID 02/18/2304/30 History (Michele) Post menopausal: No Patient : No : No PFSH Medical History TIA (transient ischemic attack) Hypercholesterolemia history of melanoma removed off of wrist Anxiety and depression GERD (gastroesophageal reflux disease) Back problem Melanoma Surgical History History of cholecystectomy Family History Mother Arthritis Mother Heart disease Hypertension Father Heart disease Hypertension High cholesterol Social History Smoking Status: Never smoker second hand exposure: No alcohol intake: current details: social substance use type: does not use caffeine: Yes frequency: 5-6 times per week seatbelt use: always do you feel safe at home: Yes 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 Date Name GA/Weeks Outcome Route Bth Weight Gen Labor Lgth Anesthesia Del Locatn Provider FOB Unknown 1990 Susanne Unknown 1995 [facility] Encounter for routine gynecological examination Details: MYRA PENA is a 55 year old who presents for annual exam. She reports no issues or concerns. Last PAP: 2022; normal; HPV neg History of abnormal PAP: ASCUS 2020, 2017. LGSIL 2019; HPV negative each. 2021/2022 negative/negative. Last mammogram: 2024; normal History of abnormal mammogram: mo Colon cancer screenin; normal per pt Other preventative health care screenings: Dash Wang; PCP Female Reproductive History Questions: sexually active: Yes, dyspareunia: No and PCB: No Menopausal Symptoms: No hot flashes, No night sweats, No weight change, No mood changes, No difficulty concentrating, No sleep problems and No change in libido Menopausal Treatment: No HRT, No Vaginal Estrogen, No Osphena, No OTC treatments and No prescription non-hormonal treatment ROS Const Constitutional: Denies chills, fatigue, fever(s), headache(s), night sweats or weight loss Eyes Eyes: Denies change in vision ENT ENT: Denies dizziness Cardio Card: Denies chest pain at rest or palpitations Resp Resp: Denies cough or dyspnea GI GI: Denies abdominal pain, constipation or nausea : Denies difficulty voiding, dysuria, hematuria, hot flashes, nipple discharge, pelvic pain, prolapse symptoms, urinary incontinence, vaginal discharge, vaginal dryness, vaginal odor or vaginal pruritus Skin Skin/Breast: Denies alopecia, rash, breast mass, breast pain, breast skin changes or nipple discharge Neuro Neuro: Denies dizziness Psych Psych: Denies anxiety, change in libido, depression or difficulty concentrating Endo Endo: Denies cold intolerance, excessive sweating or heat intolerance Exam Const General: cooperative, healthy appearing, comfortable, no acute distress, well groomed and well hydrated Nutritional Appearance: well nourished Orientation: alert, awake and oriented x3 HENMT Head: normal to inspection and normocephalic Ears: (more content not included)... Normal [facility] Breast imaging reportOrdered By: Vandana Marie on 04-09-2025 Study report [facility] Imaging Services [address] [place] [address] SCRN MAMM (CAD)W/JORGE BILAT MR#: [id number] Acct: [id number] Name: MYRA PENA ANDREW Rep #: [id number] : 1970 F 55 From: Gilbert Andrews MD PCP: Dr. Dash Wang MD Status: REG CL I Study:SCRN MAMM (CAD)W/JORGE BILAT Date of Exa m: 04/09/25 Exam# [id number] Ordering Dr: Tricia Yee [employer]-C EXAM: SCRN MAMM (CAD)W/JORGE BILAT DATE: 04/09/2025 CLINICAL HISTORY: F, Age 55 y/o , SCREEN FOR BREAST CANCER TECHNIQUE: SCRN MAMM (CAD)W/JORGE BILAT COMPARISON: Prior exam(s) were compared FINDINGS: TISSUE DENSITY: The breasts are heterogeneously dense, which may obscure small masses. Bilateral Breast Mammographic Findings: No suspicious masses, calcifications or other abnormalities are identified. BI/SCRN MAMM (CAD)W/JORGE BILAT IMPRESSION: No mammographic evidence of malignancy in either breast OVERALL FINAL ASSESSMENT BI-RADS 1: NEGATIVE. RECOMMENDATION: Routine annual follow-up in 1 Year A letter with findings and recommendations will be mailed to the patient. Reading Location: [id number] CC: [employer]-C Tricia Yee; Dr. Dash Wang MD ~ Stock Raiser: Signed [facility] SCRN MAMM (CAD)W/JORGE BILATo n 04-09-2025 SCRN MAMM (CAD)W/JORGE BILAT [facility] Imaging Services [address] [place] [address] SCRN MAMM (CAD)W/JORGE BILAT MR#: [id number] Acct: [id number] Name: MYRA PENA ANDREW Rep #: [id number] : 1970 F 55 From: Vandana Palomino i, MD PCP: Dr. Dash Wang MD Status: [facility] Study: SCRN MAMM (CAD)W/JORGE BILAT Date of Exam: 03/30 09/23 Exam# [id number] Ordering Dr: Tricia Yee EXAM: SCRN MAMM (CAD)W/JORGE BILAT DATE: 04/09/2025 CLINICAL HISTORY: F, Age 55 y/o , SCREEN FOR BREAST CANCER TECHNIQUE: SCRN MAMM (CAD)W/JORGE BILAT COMPARISON: Prior exam(s) were compared FINDINGS: TISSUE DENSITY: The breasts are heterogeneously dense, which may obscure small masses. Bilateral Breast Mammographic Findings: No suspicious masses, calcifications or other abnormalities are identified. BI/SCRN MAMM (CAD)W/JORGE BILAT IMPRESSION: No mammographic evidence of malignancy in either breast OVERALL FINAL ASSESSMENT BI-RADS 1: NEGATIVE. RECOMMENDATION: Routine annual follow-up in 1 Year A letter with findings and recommendations will be mailed to the patient. Reading Location: [id number] CC: AIRCRAFT CABIN CLEANERAaron Yee; Dr. Dash Wang MD Stock Raiser: Signed Normal [facility] Lipid Profileon 08-16-2024 Cholesterol [Mass/Vol] 169 mg/dL Normal 200 [facility] Comment on above: Result Comment: <200 mg/dL Desirable 200-240 mg/dL Borderline >240 mg/dL High Risk Performed By: #### L 500.4100 #### [facility] [address] [facility] [address] Cholesterol in HDL [Mass/Vol] 61 mg/dL Normal [facility] Comment on above: Result Comment: The drugs N-Acetylcysteine and Metamizole may falsely depress this assay. Reference Range HDL <40 mg/dL Low HDL Cholesterol HDL >or= 60 mg/dL High HDL Cholesterol Performed By: #### L 500.4100 #### [facility] [address] [place], [address] Cholesterol in LDL [Mass/Vol] 86 mg/dL Normal 0-130 [facility] Comment on above: Performed By: #### L 500.4100 #### [facility] [address], [address] Cholesterol in VLDL [Mass/Vol] 22 mg/dL Normal 5-40 [facility] Comment on above: Performed By: #### L 500.4100 #### [facility] [address] [place], [address] Triglyceride [Mass/Vol] 108 mg/dL Normal [facility] Comment on above: Result Comment: The drugs N-Acetylcysteine and Metamizole may falsely depress this assay. Serum Triglycerides Reference Interval Normal <150 mg/dL Borderline high 150 - 199 mg/dL High 200 - 499 mg/dL Very High > or = 500 mg/dL Performed By: #### L 500.4100 #### [facility] [address] [place], [place], [id number] CT CORONARY CALCIUM SCORING W/O CONTRASTon 06-24-2023 CT CORONARY CALCIUM SCORING W/O CONTRAST ORIGINAL EXAMINATION: CT OF THE HEART WITHOUT CONTRAST, CORONARY ARTERY CALCIUM SCREENING 06/19/2023 HISTORY: CT OF THE HEART WITHOUT CONTRAST, CORONARY ARTERY CALCIUM SCREENING COMPARISON: None TECHNIQUE: CT of the heart was obtained without intravenous contrast. Calcium scoring analysis was performed using a separate workstation. Dose modulation, iterative reconstruction, and/or weight based adjustment of the mA/kV was utilized to reduce the radiation dose to as low as reasonably achievable. FINDINGS: LEFT MAIN: Zero (0). LEFT ANTERIOR DESCENDIN.8 CIRCUMFLEX: Zero (0). RIGHT CORONARY ARTERY: Zero (0). TOTAL AGATSTON CALCIUM SCORE: 18.8 EXTRACARDIAC STRUCTURES: No evidence of mediastinal or hilar lymphadenopathy. Trace pericardial fluid noted.. No cardiomegaly. No evidence of acute process in the lungs. No noncalcified nodules are noted in the lungs. Limited images of the upper abdomen are grossly unremarkable. Visualized osseous structures demonstrate age related degenerative changes without acute abnormality. IMPRESSION: Total Agatston calcium score of 18.8 indicates mild plaque burden. Likely mild or minimal coronary stenosis. Heart attack risk is considered moderate. Total calcium score of 18.8 is between the 50 ofth and 75thth percentile for the patient's age of 53 y/o . No incidental clinically important extracardiac CT findings. Calcium Score Interpretation 0 No identifiable atherosclerotic plaque. Very low cardiovascular disease risk. Less than 5% chance of presence of coronary artery disease. A negative examination. 1-10 Minimal plaque burden. Significant coronary artery disease very unlikely. 11-100 Mild plaque burden. Likely mild or minimal coronary stenosis. 101-400 Moderate plaque burden. Moderate non-obstructive coronary artery disease highly likely. Over 400 Extensive plaque burden. High likelihood of at least one significant coronary artery stenosis (>50% diameter). CALCIUM SCORING OVERVIEW: Coronary calcium is a marker for plaque in a blood vessel or atherosclerosis (hardening of the arteries). The presence and amount of calcium detected in the coronary artery by the CT scan estimates the presence and amount of atherosclerotic plaque. These calcium deposits can appear years before the development of heart disease symptoms such as chest pain and shortness of breath. A calcium score is computed for each of the coronary arteries based upon the volume and density of the calcium deposits. This can be referred to as your calcified plaque burden. It does not correspond directly to the percentage of narrowing in the artery, but does correlate with the severity of the overall coronary atherosclerotic burden. This score is then used to determine the calcium percentile which compares your calcified plaque burden to that of other asymptomatic men and women of the same age. The calcium score, in combination with the percentile, enables your physician to determine your risk of developing symptomatic coronary artery disease, and to measure the progression of disease as well as the effectiveness of treatment. A score of zero indicates that there is no calcified plaque burden. This implies that there is no significant coronary artery narrowing and very low likelihood of a cardiac event over at least the next 3 years. It does not absolutely rule out the presence of soft, noncalcified plaque or totally eliminate the possibility of a cardiac event. A score greater than zero indicates at least some coronary artery disease. As the score increases, so does the likelihood of a significant coronary narrowing and the likelihood of a coronary event over the next 3 years. Similarly, the likelihood of a coronary event increases with increasing calcium percentiles. Interpreted by: Dmitri Yeager MD Preliminary Report By: Dmitri Yeager MD Electronically signed By Dmitri Yeager MD Dictated Date: 06/24/2023 9:02:52 AM Prelim Date: 06/24/2023 9:06:01 AM Sign Date: 06/24/2023 9:06:01 AM Ordering Provider: GÓMEZ DREW Normal [facility] ([place]) LIPIDon 06-08-2023 Cholesterol [Mass/Vol] 217 mg/dL High 0-200 [facility] ([place]) Comment on above: Result Comment: Chol esterol Reference Interval: Less than 200 Desirable 200-239 Borderline high risk 240 and above High risk Performed By: #### L IPID #### [address] [id number] Cholesterol in HDL [Mass/Vol] 59 mg/dL Normal 40-60 [facility] ([place]) Comment on above: Performed By: #### L IPID #### [address] [address] Cholesterol in LDL [Mass/Vol] 122 mg/dL Normal 0-130 [facility]) Comment on above: Performed By: #### L IPID #### [address] [address] Triglyceride [Mass/Vol] 180 mg/dL High 0-150 [facility] ([place]) Comment on above: Result Comment: Trig lyceride Reference Interval: Less than 150 Normal 150-199 Borderline high risk 200-499 High risk 500 or higher Very high risk Performed By: #### L IPID #### [address] [address] Absolute lymphocyte countOrd ered By: Kalia Obando on 04-16-2023 Lymphocytes Auto (Unsp spec) [#/Vol] 2.62 10*3/uL 0.83-4.51 [facility] Basophil percentageOrdered B y: Kalia Obando on 04-16-2023 Basophil percentage 0-5 SEEN /hpf 0-5 [facility] Basophils/100 WBC (Bld) 0.2 % 0-1 [facility] Bilirubin [Mass/Vol] 1.20 mg/dL 0.20-1.00 [facility] Comment on above: For patients on eltr ombopag therapy, use of Dimension [place] TBIL is not recommended. Chloride [Moles/Vol] 102 mmol/L 98-107 [facility] Eosinophils/100 WBC (Bld) 1.1 % 0-5 [facility] Glucose [Mass/Vol] 116 mg/dL 74-106 [facility] Comment on above: Fasting Glucose resu lt from 100 to 125 mg/dL suggests IMPAIRED HOMEOSTASIS per A.D.A. criteria. Neutrophils (Bld) [#/Vol] 4.4 10*3/uL 2.0-7.7 [facility] Neutrophils/100 WBC (Bld) 55.3 % 47-70 [facility] Potassium [Moles/Vol] 3.6 mmol/L 3.5-5.1 [facility] Protein [Mass/Vol] 7.0 g/dL 6.4-8.2 [facility] Sodium [Moles/Vol] 136 mmol/L 136-145 [facility] WBC (Bld) [#/Vol] 8.0 10*3/uL 4.4-11.0 [facility] Bilirubin Test strip Ql (U)O rdered By: Kalia Obando on 04-16-2023 Bilirubin Ql (U) Negative Negative [facility] Blood erythrocytes count (nu mber/volume)Ordered By: Kalia Obando on 04-16-2023 RBC (Bld) [#/Vol] 4.69 10*6/uL 4.2-5.4 [facility] Blood hemoglobin measurement (mass/volume)Ordered By: Kalia Obando on 04-16-2023 Hemoglobin (Bld) [Mass/Vol] 13.7 g/dL 12.0-15.0 [facility] Blood lymphocytes/100 leukoc ytesOrdered By: Kalia Obando on 04-16-2023 Lymphocytes/100 WBC (Bld) 32.6 % 19-41 [facility] Blood monocytes/100 leukocyt esOrdered By: Kalia Obando on 04-16-2023 Monocytes/100 WBC (Bld) 10.4 % 0-10 [facility] Blood platelet mean volumeOr dered By: Kalia Obando on 04-16-2023 Platelet mean volume (Bld) [Entitic vol] 8.6 fL 6.2-12.0 [facility] Determination of erythrocyte mean corpuscular volume (MCV)Ordered By: Kalia Obando on 04-16-2023 MCV (RBC) [Entitic vol] 90.0 fL 81-99 [facility] Glucose Glucometer (BldC) [M ass/Vol]Ordered By: Kalia Obando on 04-16-2023 Glucose [Mass/Vol] 105 mg/dL 74-106 [facility] Comment on above: MANAGEMENT OF PATIEN T CARE PER NURSING PROTOCOL Hematocrit Auto (Bld) [Volum e fraction]Ordered By: Kalia Obando on 04-16-2023 Hematocrit (Bld) [Volume fraction] 42.2 % 37-47 [facility] INR in Blood by Coagulation assayOrdered By: Kalia Obando on 04-16-2023 INR Coag (Bld) [Relative time] 1.0 {INR} [facility] Influenza virus A and B and SARS-CoV-2 (COVID-19) Ag panel - Upper respiratory specimOrdered By: Kalia Obando on 04-16-2023 SARS-CoV-2 (COVID-19) RNA MYRTLE+probe Ql (Resp) [facility] Ketones Test strip Ql (U)Ord ered By: Kalia Obando on 04-16-2023 Ketones Ql (U) Negative Negative [facility] Laboratory - Chemistry and C hemistry - challengeOrdered By: Kalia Obando on 04-16-2023 ALP [Catalytic activity/Vol] 80 U/L 45-117 [facility] ALT [Catalytic activity/Vol] 30 U/L 13-56 [facility] CO2 [Moles/Vol] 30.0 mmol/L 21.0-32.0 [facility] Globulin (S) [Mass/Vol] 3.1 g/dL 2.2-4.2 [facility] Urea nitrogen/Creatinine [Mass ratio] 14.3 mg/mg 10-20 [facility] Laboratory - CoagulationOrde red By: Kalia Obando on 04-16-2023 aPTT Coag (Bld) [Time] 25.7 s 24.1-36.2 [facility] PT Coag (PPP) [Time] 12.8 s 11.7-14.9 [facility] Laboratory - Hematology and Cell countsOrdered By: Kalia Obando on 04-16-2023 Erythrocyte distribution width (RBC) [Entitic vol] 39.3 fL 35.1-43.9 [facility] Erythrocyte distribution width (RBC) [Ratio] 12.0 % 11.6-14.6 [facility] Immature granulocytes/100 WBC (Bld) 0.400 % 0.0-0.9 [facility] Comment on above: IG% - Immature Granu locytes (promyelocytes, myelocytes and metamyelocytes) > 1% indicates that a LEFT SHIFT is Present. MCH (RBC) [Entitic mass] 29.2 pg 27.0-32.0 [facility] Nucleated RBC/100 WBC (Bld) [Ratio] 0 % 0-5 [facility] MCHC Auto (RBC) [Mass/Vol]Or dered By: Kalia Obando on 04-16-2023 MCHC (RBC) [Mass/Vol] 32.5 g/dL 32-36 [facility] Mucus LM Ql (Urine sed)Order ed By: Kalia Obando on 04-16-2023 Mucus Ql (Urine sed) 0 SEEN /hpf [facility] Nitrite Test strip Ql (U)Ord ered By: Kalia Obando on 04-16-2023 Nitrite Ql (U) Negative Negative [facility] No Panel InformationOrdered By: Kalia Obando on 04-16-2023 Estimated Creatinine Clearance Calc 60.32 ml/min [facility] Estimated GFR (MDRD) Amer 83 mL/min >60 [facility] Comment on above: GFR Calc Estimated GFR (MDRD) Non-Af Amer 68 mL/min >60 [facility] Comment on above: Non- GFR Calc Troponin I High Sensitivity 5 pg/mL 3.0-54.0 [facility] Comment on above: Please Note: New [place] t Units and Gender Specific Reference Ranges. For more information see Policy Stat Procedure [place] High Sensitivity Troponin (TNIH) and attachments. Platelets bldOrdered By: Jess Obando on 04-16-2023 Platelets (Bld) [#/Vol] 253 10*3/uL 150-450 [facility] Protein Test strip Ql (U)Ord ered By: Kalia Obando on 04-16-2023 Protein Ql (U) Negative Negative [facility] Serum or plasma albumin gene urement (mass/volume)Ordered By: Kalia Obando on 04-16-2023 Albumin [Mass/Vol] 3.9 g/dL 3.2-5.0 [facility] Serum or plasma albumin/glob ulin mass ratioOrdered By: Kalia Obando on 04-16-2023 Albumin/Globulin [Mass ratio] 1.3 {ratio} 0.9-2.4 [facility] Serum or plasma calcium gene urement (mass/volume)Ordered By: Kalia Obando on 04-16-2023 Calcium [Mass/Vol] 8.5 mg/dL 8.5-10.1 [facility] Serum or plasma creatinine m easurement (mass/volume)Ordered By: Kalia Obando on 04-16-2023 Creatinine [Mass/Vol] 0.91 mg/dL 0.55-1.02 [facility] Comment on above: The validity of the calculated GFR & GFRAA in patients over 70 years has not been determined. Clinical correlation is essential. Serum or plasma urea nitroge n measurement (mass/volume)Ordered By: Kalia Obando on 04-16-2023 Urea nitrogen [Mass/Vol] 13 mg/dL 7-18 [facility] Squamous epithelial cells de tection in urine sediment by light microscopyOrdered By: Kalia Obando on 04-16-2023 Epithelial cells.squamous LM Ql (Urine sed) 0-5 SEEN /hpf 5-10 [facility] Thin prep Papanicolaou smear with manual screeningOrdered By: Kalia Obando on 04-16-2023 Thin prep Papanicolaou smear with manual screening 19 U/L 15-37 [facility] Thin prep Papanicolaou smear with manual screening 4 5-15 [facility] Urine blood detectionOrdered By: Kalia Obando on 04-16-2023 RBC Ql (U) 10 /ul Negative [facility] RBC Ql (U) 0 SEEN /hpf 0-5 [facility] Urine clarityOrdered By: Jess Obando on 04-16-2023 Clarity (U) Clear Clear [facility] Urine color determinationOrd ered By: Kalia Obando on 04-16-2023 Color (U) Yellow Yellow [facility] Urine glucose detectionOrder ed By: Kalia Obando on 04-16-2023 Glucose Ql (U) Normal mg/dl Normal [facility] Urine leukocyte esterase det ection by dipstickOrdered By: Kalia Obando on 04-16-2023 Leukocyte esterase Test strip Ql (U) 25 /ul Negative [facility] Urine pHOrdered By: Kalia shi on 04-16-2023 pH (U) 7.0 [pH] 5.0 - 8.0 [facility] Urine sediment bacteria coun t by microscopy (number/high power field)Ordered By: Kalia Obando on 04-16-2023 Bacteria LM.HPF (Urine sed) [#/Area] 0 /[HPF] None Seen [facility] Urine specific gravity measu rementOrdered By: Kalia Obando on 04-16-2023 Specific gravity (U) [Rel density] 1.010 1.002-1.030 [facility] Urobilinogen Auto test strip Ql (U)Ordered By: Kalia Obando on 04-16-2023 Urobilinogen Ql (U) Normal mg/dl Normal [facility] Absolute lymphocyte countOrd ered By: Diaz Lopez on 03-31-2023 Lymphocytes Auto (Unsp spec) [#/Vol] 2.20 10*3/uL 0.83-4.51 [facility] Basophil percentageOrdered B y: Diaz Lopez on 03-31-2023 Basophils/100 WBC (Bld) 0.3 % 0-1 [facility] Bilirubin [Mass/Vol] 0.90 mg/dL 0.20-1.00 [facility] Comment on above: For patients on eltr ombopag therapy, use of Dimension [place] TBIL is not recommended. Chloride [Moles/Vol] 105 mmol/L 98-107 [facility] Eosinophils/100 WBC (Bld) 1.0 % 0-5 [facility] Glucose [Mass/Vol] 98 mg/dL 74-106 [facility] Neutrophils (Bld) [#/Vol] 4.6 10*3/uL 2.0-7.7 [facility] Neutrophils/100 WBC (Bld) 60.1 % 47-70 [facility] Potassium [Moles/Vol] 4.0 mmol/L 3.5-5.1 [facility] Protein [Mass/Vol] 7.7 g/dL 6.4-8.2 [facility] Sodium [Moles/Vol] 138 mmol/L 136-145 [facility] WBC (Bld) [#/Vol] 7.7 10*3/uL 4.4-11.0 [facility] Blood erythrocytes count (nu mber/volume)Ordered By: Diaz Lopez on 03-31-2023 RBC (Bld) [#/Vol] 4.99 10*6/uL 4.2-5.4 [facility] Blood hemoglobin measurement (mass/volume)Ordered By: Diaz Lopez on 03-31-2023 Hemoglobin (Bld) [Mass/Vol] 14.7 g/dL 12.0-15.0 [facility] Blood lymphocytes/100 leukoc ytesOrdered By: Diaz Lopez on 03-31-2023 Lymphocytes/100 WBC (Bld) 28.5 % 19-41 [facility] Blood monocytes/100 leukocyt esOrdered By: Diaz Lopez on 03-31-2023 Monocytes/100 WBC (Bld) 9.7 % 0-10 [facility] Blood platelet mean volumeOr dered By: Diaz Lopez on 03-31-2023 Platelet mean volume (Bld) [Entitic vol] 9.2 fL 6.2-12.0 [facility] Determination of erythrocyte mean corpuscular volume (MCV)Ordered By: Diaz Lopez on 03-31-2023 MCV (RBC) [Entitic vol] 89.4 fL 81-99 [facility] Hematocrit Auto (Bld) [Volum e fraction]Ordered By: Diaz Lopez on 03-31-2023 Hematocrit (Bld) [Volume fraction] 44.6 % 37-47 [facility] Laboratory - Chemistry and C hemistry - challengeOrdered By: Diaz Lopez on 03-31-2023 ALP [Catalytic activity/Vol] 93 U/L 45-117 [facility] ALT [Catalytic activity/Vol] 24 U/L 13-56 [facility] CO2 [Moles/Vol] 27.0 mmol/L 21.0-32.0 [facility] Cobalamin (Vitamin B12) [Mass/Vol] 358 pg/mL 211-911 [facility] Globulin (S) [Mass/Vol] 3.7 g/dL 2.2-4.2 [facility] Urea nitrogen/Creatinine [Mass ratio] 16.0 mg/mg 10-20 [facility] Laboratory - Hematology and Cell countsOrdered By: Diaz Lopez on 03-31-2023 Erythrocyte distribution width (RBC) [Entitic vol] 38.7 fL 35.1-43.9 [facility] Erythrocyte distribution width (RBC) [Ratio] 11.9 % 11.6-14.6 [facility] Immature granulocytes/100 WBC (Bld) 0.400 % 0.0-0.9 [facility] Comment on above: IG% - Immature Granu locytes (promyelocytes, myelocytes and metamyelocytes) > 1% indicates that a LEFT SHIFT is Present. MCH (RBC) [Entitic mass] 29.5 pg 27.0-32.0 [facility] Nucleated RBC/100 WBC (Bld) [Ratio] 0 % 0-5 [facility] MCHC Auto (RBC) [Mass/Vol]Or dered By: Diaz Lopez on 03-31-2023 MCHC (RBC) [Mass/Vol] 33.0 g/dL 32-36 [facility] No Panel InformationOrdered By: Diaz Lopez on 03-31-2023 Estimated GFR (MDRD) Amer 94 mL/min >60 [facility] Comment on above: GFR Calc Estimated GFR (MDRD) Non-Af Amer 78 mL/min >60 [facility] Comment on above: Non- GFR Calc Thyroid Stimulating Hormone (TSH) 1.71 uIU/mL 0.358-3.74 [facility] Platelets bldOrdered By: Richard Lopez on 03-31-2023 Platelets (Bld) [#/Vol] 285 10*3/uL 150-450 [facility] Serum or plasma albumin gene urement (mass/volume)Ordered By: Diaz Lopez on 03-31-2023 Albumin [Mass/Vol] 4.0 g/dL 3.2-5.0 [facility] Serum or plasma albumin/glob ulin mass ratioOrdered By: Diaz Lopez on 03-31-2023 Albumin/Globulin [Mass ratio] 1.1 {ratio} 0.9-2.4 [facility] Serum or plasma calcium gene urement (mass/volume)Ordered By: Diaz Lopez on 03-31-2023 Calcium [Mass/Vol] 8.9 mg/dL 8.5-10.1 [facility] Serum or plasma creatinine m easurement (mass/volume)Ordered By: Diaz Lopez on 03-31-2023 Creatinine [Mass/Vol] 0.81 mg/dL 0.55-1.02 [facility] Comment on above: The validity of the calculated GFR & GFRAA in patients over 70 years has not been determined. Clinical correlation is essential. Serum or plasma urea nitroge n measurement (mass/volume)Ordered By: Diaz Lopez on 03-31-2023 Urea nitrogen [Mass/Vol] 13 mg/dL 7-18 [facility] Thin prep Papanicolaou smear with manual screeningOrdered By: Diaz Lopez on 03-31-2023 Thin prep Papanicolaou smear with manual screening 27 U/L 15-37 [facility] Thin prep Papanicolaou smear with manual screening 6 5-15 [facility] Whole blood hemoglobin A1c/t otal hemoglobin ratio (mass fraction)Ordered By: Diaz Lopez on 03-31-2023 HbA1c (Bld) [Mass fraction] 5.6 % 3.8-5.6 [facility] Comment on above: Normal < 5.7 % Predi abetic 5.7 - 6.4 % Diabetic >or= 6.5 % Please note range changes. Cervical or vagninal specime n microscopic examination by cytology stain (reported asOrdered By: Danika Bonds on 02-18-2023 Cytology report Cyto stain Doc (Cvx/Vag) Comment . [facility] Comment on above: The Pap smear is a s creening test designed to aid in thedetection of premalignant and malignant conditions of theuterine cervix. It is not a diagnostic procedure andshould not be used as the sole means of detecting cervicalcancer. Both false-positive and false-negative reports dooccur. Detection in cervical specim en of any of human papilloma virus (HPV) 16, 18, 31, 33,Ordered By: Dainka Bonds on 02-18-2023 HPV 16+18+31+33+35+39+45+51+ 52+56+58+59+66+68 DNA Probe+sig amp Ql (Cvx) Negative Negative [facility] Comment on above: This nucleic acid am plification test detects fourteen high-risk HPV types (16,18,31,33,35,39,45,51,52,56,58,59,66,68)without differentiation. Laboratory - CytologyOrdered By: Danika Bonds on 02-18-2023 Reporting Consultant Cyto stain Nom (Cvx/Vag) [ID] Comment . [facility] Comment on above: Leandro Reynoso totechnologist (ASCP) Laboratory - Miscellaneous t estsOrdered By: Danika Bonds on 02-18-2023 Service comment (Unsp spec) [Interp] Comment . [facility] Comment on above: This liquid based Th inPrep(R) pap test was screened withthe use of an image guided system. Service comment (Unsp spec) [Interp] . . [facility] Liquid-based cerv Pap + CT/G C by MYRTLE w reflex to high-risk HPV for ASCUSOrdered By: Danika Bonds on 02-18-2023 Cytology report Cyto stain.thin prep Doc (Cvx/Vag) Comment . [facility] Comment on above: Criteria not met, HP V Genotype not performed.Performed at: [facility] - [facility] [id number] [place], [place] [id number] Director: Nicolas Winston MD, Phone: [phone] at: [facility] [id number] Director: Suzi Hensley MD, Phone: [phone] at: =[facility] [id number] Director: Suzi Hensley MD, Phone: [phone] No Panel InformationOrdered By: Danika Bonds on 02-18-2023 Pathology report final diagnosis Narrative Comment . [facility] Comment on above: NEGATIVE FOR INTRAEP ITHELIAL LESION OR MALIGNANCY.CELLULAR CHANGES ASSOCIATED WITH ATROPHY ARE PRESENT. Cervical or vagninal specime n microscopic examination by cytology stain (reported ason 02-17-2022 Cytology report Cyto stain Doc (Cvx/Vag) Comment . [facility] Work Phone: Comment on above: The Pap smear is a s creening test designed to aid in thedetection of premalignant and malignant conditions of theuterine cervix. It is not a diagnostic procedure andshould not be used as the sole means of detecting cervicalcancer. Both false-positive and false-negative reports dooccur. Detection in cervical specim en of any of human papilloma virus (HPV) 16, 18, 31, 33,on 02-17-2022 HPV 16+18+31+33+35+39+45+51+ 52+56+58+59+66+68 DNA Probe+sig amp Ql (Cvx) Negative Negative [facility] Work Phone: Comment on above: This nucleic acid am plification test detects fourteen high-risk HPV types (16,18,31,33,35,39,45,51,52,56,58,59,66,68)without differentiation.Performed at: - [facility] [id number] Director: Suzi Hensley MD, Phone: [phone] at: =[facility] [id number] Director: Suzi Hensley MD, Phone: [phone] Laboratory - Cytologyon 01-29 Reporting Consultant Cyto stain Nom (Cvx/Vag) [ID] Comment . [facility] Work Phone: Comment on above: Tatiana Omalley, Cytotec hnologist (ASCP) Laboratory - Miscellaneous t estson 02-17-2022 Service comment (Unsp spec) [Interp] Comment . [facility] Work Phone: Comment on above: This liquid based Th inPrep(R) pap test was screened withthe use of an image guided system. Service comment (Unsp spec) [Interp] . . [facility] Work Phone: No Panel Informationon 02-17 Pap Smear QC Review Comment . [facility] Work Phone: Comment on above: Nani Hay Cytot echnologist ([facility]) Pathology report final diagnosis Narrative Comment . [facility] Work Phone: Comment on above: NEGATIVE FOR INTRAEP ITHELIAL LESION OR MALIGNANCY.CELLULAR CHANGES ASSOCIATED WITH ATROPHY ARE PRESENT.THIS SPECIMEN WAS RESCREENED PART OF OUR [employer] LAY OUT TECHNICIAN PROGRAM. Basophil percentageon 2021 Bilirubin [Mass/Vol] 1.00 mg/dL 0.20-1.00 [facility] Work Phone: Comment on above: For patients on eltr ombopag therapy, use of Dimension [place] TBIL is not recommended. Chloride [Moles/Vol] 108 mmol/L 98-107 [facility] Work Phone: Cholesterol [Mass/Vol] 163 mg/dL <200 [facility] Work Phone: Comment on above: <200 mg/dL Desirable 200-240 mg/dL Borderline >240 mg/dL High Risk Glucose [Mass/Vol] 99 mg/dL 74-106 [facility] Work Phone: Potassium [Moles/Vol] 3.9 mmol/L 3.5-5.1 [facility] Work Phone: Protein [Mass/Vol] 7.1 g/dL 6.4-8.2 [facility] Work Phone: Sodium [Moles/Vol] 141 mmol/L 136-145 [facility] Work Phone: Triglyceride [Mass/Vol] 102 mg/dL <199 [facility] Work Phone: Comment on above: The drugs N-Acetylcy steine and Metamizole may falsely depress this assay.Serum Triglycerides Reference Interval Normal <150 mg/dL Borderline high 150 - 199 mg/dL High 200 - 499 mg/dL Very High > or = 500 mg/dL WBC (Bld) [#/Vol] 5.3 10*3/uL 4.4-11.0 [facility] Work [facility]: Blood erythrocytes count (nu mber/volume)on 11-27-2021 RBC (Bld) [#/Vol] 4.75 10*6/uL 4.2-5.4 [facility] Blood hemoglobin measurement (mass/volume)on 11-27-2021 Hemoglobin (Bld) [Mass/Vol] 14.3 g/dL 12.0-15.0 [facility] Work Phone: Blood platelet mean volumeon 11-27-2021 Platelet mean volume (Bld) [Entitic vol] 8.8 fL 6.2-12.0 [facility] Work Phone: Determination of erythrocyte mean corpuscular volume (MCV)on 11-27-2021 MCV (RBC) [Entitic vol] 87.8 fL 81-99 [facility] Work Phone: Hematocrit Auto (Bld) [Volum e fraction]on 11-27-2021 Hematocrit (Bld) [Volume fraction] 41.7 % 37-47 [facility] Work Phone: Laboratory - Chemistry and C hemistry - challengeon 11-27-2021 ALP [Catalytic activity/Vol] 84 U/L 45-117 [facility] Work Phone: ALT [Catalytic activity/Vol] 25 U/L 13-56 [facility] Work Phone: CO2 [Moles/Vol] 30.0 mmol/L 21.0-32.0 [facility] Work Phone: Globulin (S) [Mass/Vol] 3.2 g/dL 2.2-4.2 [facility] Work Phone: Magnesium [Mass/Vol] 2.3 mg/dL 1.6-2.6 [facility] Work [facility]: Urea nitrogen/Creatinine [Mass ratio] 15.2 mg/mg 10-20 [facility] Work Phone: Laboratory - Hematology and Cell countson 11-27-2021 Erythrocyte distribution width (RBC) [Entitic vol] 39.4 fL 35.1-43.9 [facility] Work Phone: Erythrocyte distribution width (RBC) [Ratio] 12.3 % 11.6-14.6 [facility] Work Phone: MCH (RBC) [Entitic mass] 30.1 pg 27.0-32.0 [facility] Work Phone: MCHC Auto (RBC) [Mass/Vol]on 11-27-2021 MCHC (RBC) [Mass/Vol] 34.3 g/dL 32-36 [facility] Work Phone: No Panel Informationon 11-27 Estimated GFR (MDRD) Amer 89 mL/min >60 [facility] Work Phone: Comment on above: GFR Calc Estimated GFR (MDRD) Non-Af Amer 74 mL/min >60 [facility] Work Phone: Comment on above: Non- GFR Calc Thyroid Stimulating Hormone (TSH) 2.54 uIU/mL 0.358-3.74 [facility] Work Phone: Platelets bldon 11-27-2021 Platelets (Bld) [#/Vol] 237 10*3/uL 150-450 [facility] Work Phone: Serum or plasma albumin gene urement (mass/volume)on 11-27-2021 Albumin [Mass/Vol] 3.9 g/dL 3.2-5.0 [facility] Work Phone: Serum or plasma albumin/glob ulin mass ratioon 11-27-2021 Albumin/Globulin [Mass ratio] 1.2 {ratio} 0.9-2.4 [facility] Work Phone: Serum or plasma calcium gene urement (mass/volume)on 11-27-2021 Calcium [Mass/Vol] 8.9 mg/dL 8.5-10.1 [facility] Work Phone: Serum or plasma cholesterol in HDL measurement (mass/volume)on 11-27-2021 Cholesterol in HDL [Mass/Vol] 58 mg/dL >40 [facility] Work Phone: Comment on above: The drugs N-Acetylcy steine and Metamizole may falsely depress this assay. Reference Range HDL <40 mg/dL Low HDL Cholesterol HDL >or= 60 mg/dL High HDL Cholesterol Serum or plasma cholesterol in VLDL measurement (mass/volume)on 11-27-2021 Cholesterol in VLDL [Mass/Vol] 20 mg/dL 5-40 [facility] Work Phone: Serum or plasma creatinine m easurement (mass/volume)on 11-27-2021 Creatinine [Mass/Vol] 0.85 mg/dL 0.55-1.02 [facility] Work Phone: Comment on above: The validity of the calculated GFR & GFRAA in patients over 70 years has not been determined. Clinical correlation is essential. Serum or plasma low density lipoprotein (LDL) cholesterol measurement (mass/volume)on 11-27-2021 Cholesterol in LDL [Mass/Vol] 85 mg/dL 0-130 [facility] Work Phone: Serum or plasma urea nitroge n measurement (mass/volume)on 11-27-2021 Urea nitrogen [Mass/Vol] 13 mg/dL 7-18 [facility] Work Phone: Thin prep Papanicolaou smear with manual screeningon 11-27-2021 Thin prep Papanicolaou smear with manual screening 20 U/L 15-37 [facility] Work Phone: Thin prep Papanicolaou smear with manual screening 3 5-15 [facility] Work Phone: Laboratory - Microbiology an d Antimicrobial susceptibilityon 09-26-2021 SARS-CoV-2 (COVID-19) RNA MYRTLE+probe Ql (Unsp spec) Detected Not Detect [facility] Work Phone: Comment on above: Normal Reference Ran ge: Not DetectedMethod:(RT-PCR) real-time reverse transcriptase PCRLuminex ELIZABETH Instrument*The Food and Drug Administration (FDA) has issued an Emergency Use Authorization (EAU) for the ELIZABETH SARS-CoV-2 Assay for the rapid detection of the virus that causes COVID-19. This test has been validated, but the [facility] independent review of this validation is pending.*Negative results do not preclude infection and should not be used as the sole basis for treatment or patient management. Optimum specimen types and timing for peak viral levels during infections caused by SARS-CoV-2 have not been determined. Collection of multiple specimens from the same patient may be necessary to detect the virus. The possibility of a false negative result should be considered if the patient has clinical presentation or has had recent exposure. No Panel Informationon 08-28 Respiratory Panel (PCR) [facility] Work Phone: Laboratory - Microbiology an d Antimicrobial susceptibilityon 08-21-2021 SARS-CoV-2 (COVID-19) RNA MYRTLE+probe Ql (Unsp spec) Not detected Not Detect [facility] Work Phone: Comment on above: Normal Reference Ran ge: Not DetectedMethod:(RT-PCR) real-time reverse transcriptase PCRLuminex ELIZABETH Instrument*The Food and Drug Administration (FDA) has issued an Emergency Use Authorization (EAU) for the ELIZABETH SARS-CoV-2 Assay for the rapid detection of the virus that causes COVID-19. This test has been validated, but the [facility] independent review of this validation is pending.*Negative results do not preclude infection and should not be used as the sole basis for treatment or patient management. Optimum specimen types and timing for peak viral levels during infections caused by SARS-CoV-2 have not been determined. Collection of multiple specimens from the same patient may be necessary to detect the virus. The possibility of a false negative result should be considered if the patient has clinical presentation or has had recent exposure. ANES POSTPROC EVALon 021 ANES POSTPROC EVAL HNO ID: [id number] Author: Cathi Benson MD Service: Anesthesiology Author Type: Anesthesiologist Type: Anesthesia Postprocedure Evaluation Filed: 12/25/2020 1:14 PM Note Text: POST ANESTHESIA EVALUATION NOTE : 1970 Procedure Summary Date: 12/25/20 Room / Location: [place] [address] / [place] Anesthesia Start: 853 Anesthesia Stop: 958 Procedure: LAPAROSCOPIC CHOLECYSTECTOMY (N/A Abdomen) Diagnosis: RUQ abdominal pain Surgeons: Ranjan Heart MD Responsible Provider: Cathi Benson MD Anesthesia Type: general ASA Status: 2 Anesthesia Type: general Last vitals Vitals Value Taken Time BP 130/75 12/25/20 1115 Temp 36.7 ?C (98.1 ?F) 12/25/20 0956 HR SpO2 78 12/25/20 0956 Resp 16 12/25/20 1115 SpO2 97 % 12/25/20 1116 Vitals shown include unvalidated device data. Post Anesthesia Patient Status Patient Evaluation: PACU. PACU/ICU Patient Condition: stable. Neurological Status: aware and responsive. Pulmonary Status: breathing comfortably on room air Airway Control: returned to baseline unsupported. Cardiovascular Status: stable. Pain Management: clinically adequate Postoperative Hydration: acceptable. Intraoperative Events: no significant anesthesia events Post Operative Nausea/Vomiting Status: no significant post operative nausea or vomiting Anesthetic Observations: Recommendation: continue current plan of care. No complications documented. SIGNATURE: Cathi Benson MD PATIENT NAME: Myra Pena DATE: December 25, 2020 TIME: 1:14 PM CSN: [id number] [facility] ANES PRE-OPon 12-25-2020 ANES PRE-OP HNO ID: [id number] Author: Cathi Benson MD Service: Anesthesiology Author Type: Anesthesiologist Type: Anesthesia Preprocedure Evaluation Filed: 12/25/2020 7:53 AM Note Text: ANESTHESIOLOGY DAY OF SURGERY NOTE : 1970 Procedure(s) (LRB): LAPAROSCOPIC CHOLECYSTECTOMY (N/A) Surgeon(s): Ranjan Heart MD Estimated body mass index is 19.74 kg/m? as calculated from the following: Height as of 12/23/20: 162.6 cm (5' 4). Weight as of 12/23/20: 52.2 kg (115 lb). Most recent hematocrit and potassium results: No results found for this basename: HCT,HEMATOCRIT,K,POT ASSIUM Relevant Problems No relevant active problems I - PHYSICAL EVALUATION AIRWAY Patient intubated: No. Tracheostomy tube not present Mallampati: I. TM distance: >3 FB. Neck ROM: full ROM without neurological symptoms. Mouth opening: adequate. Short neck: no. Thick neck: no DENTAL Dental findings: teeth intact. Additional exam findings: no II - ANESTHESIA PLAN ASA Score: 2 Anesthetic Plan: general Airway type: ETT The patient is not a current smoker. NPO Status: adequate Monitoring plan: standard ASA. Postoperative analgesic plan: parenteral or oral opioids. Anesthetic Risks, Benefits, Alternatives, Personnel Discussed. Consent obtained from: patient.Patient / Surrogate agrees to blood products: Yes Significant changes in the patient condition since the History and Physical, not otherwise documented in primary service progress note: no. Potential Anesthesia issues that may suggest increased risk of complications or contraindication to planned procedure: none. No vitals data found for the desired time range. Facility-Administere d Medications as of 12/25/2020 Medication Dose Route Frequency - lactated ringers iv infusion 30 mL/hr INTRAVENOUS CONTINUOUS - clindamycin iv piggyback 900 mg in D5W 50 mL (CLEOCIN) 900 mg INTRAVENOUS Pre-Op Once - acetaminophen 650 mg tab(s) (TYLENOL) 650 mg ORAL Pre-Op Once - promethazine 12.5 mg tab(s) (PHENERGAN) 12.5 mg ORAL Pre-Op Once Outpatient Medications as of 12/25/2020 Medication Sig - aspirin, enteric coated (ASPIRIN, ENTERIC COATED) 81 mg EC tablet Take 81 mg by mouth once daily. - omeprazole (PRILOSEC) 40 mg capsule Take 40 mg by mouth once daily. - rosuvastatin (CRESTOR) 20 mg tablet Take 20 mg by mouth daily at bedtime. - traZODone (DESYREL) 50 mg tablet Take 50 mg by mouth at bedtime as needed. - buPROPion XL 150 mg ORAL 24 hr tablet Take 150 mg by mouth once daily. - diphenhydrAMINE (BENADRYL) 25 mg ORAL capsule Uses prn for allergies I have interviewed and examined the patient. I have reviewed the medical record and/or the pre-anesthesia evaluation, pertinent labs, and test results. This contains updated information obtained within 48 hours of Surgery/Procedure. SIGNATURE: Cathi Benson MD PATIENT NAME: Myra Pena DATE: December 25, 2020 TIME: 7:49 AM CSN: [id number] [facility] NURSING PROGon 12-25-2020 NURSING PROG HNO ID: [id number] Author: Sarita Garza RN Service: Nursing Author Type: Registered Nurse Type: Nursing Progress Note Filed: 12/25/2020 11:47 AM Note Text: Nursing Progress Note Patient Name: Myra Pena Patient Location: [place] Surgery/[place] Surgery pt up to bathroom to void at 1130, + void, c/o abd pain 8/10 burning to area around umbilical region. Gait steady, denies lightheadedness or dizziness. Education on splinting abd with position changes and movements, given pain pill at 1138, at bedside. This note was completed by: Sarita [facility] NURSING PROG HNO ID: [id number] Author: Sarita Garza RN Service: Nursing Author Type: Registered Nurse Type: Nursing Progress Note Filed: 12/25/2020 8:08 AM Note Text: Nursing Progress Note Patient Name: Myra Pena Patient Location: [place] Surgery/[place] Surgery pt ready for OR, call light in reach, called to bedside. This note was completed by: Sarita [facility] OPERATIVE NOon 12-25-2020 OPERATIVE NO HNO ID: [id number] Author: Ranjan Heart MD Service: General Surgery Author Type: Physician Type: Operative Report Filed: 12/25/2020 2:00 PM Note Text: OPERATIVE/PROCEDURE REPORT LOG ID: [id number] SURGERY/PROCEDURE DATE: 12/25/2020 INCISION/PROCEDURE START TIME: 9:15 AM INCISION CLOSE/PROCEDURE END TIME: 9:48 AM SURGEON(S)/PROCEDURA LIST(S) AND RADIATION PROTECTION TECHNICIAN(S): Surgeon(s) and Role: * Ranjan Heart MD - Primary Nurse Practitioner: Maren Tsang APRN.[employer] DEVELOPER Physician Mixing Machine Tender Cork Rod: GABRIELLE Rojas SURGERY/PROCEDURE(S) : Laparoscopic cholecystectomy ANESTHESIA: General SURGERY/PROCEDURE DETAILS: Patient was brought into the operating room. Placed in the supine position. Under excellent general endotracheal intubation the abdomen was sterilely prepped and draped in usual fashion. Local was injected infraumbilically. Dissection was carried down to the fascia. The fascia is grasped with a Stanford. Varies needle was placed inside the abdomen. The abdomen was insufflated to 15 torr. A 10/12 trocar was placed without difficulty. Patient was placed in the head up and rotated to the left position. Subxiphoid #5 trochars placed inferior to this another #5 trochars placed laterally and #5 trocar was placed. All these under direct visualization without injury to underlying structures. Fundus of the gallbladder was grasped retracted in cephalad direction. Infundibulum was grasped retracted laterally. I dissected out the cystic duct placed hemoclips proximally and distally on the duct and ligated the duct. Identified the cystic artery placed hemoclips proximally and distally and ligated the artery. I deliver the gallbladder from the gallbladder bed with use of electrocautery. I had excellent hemostasis. Placed the specimen a specimen bag delivered through the umbilical port without difficulty. Reinflated the abdomen inspected the liver bed good in the stasis was noted. Remove the trochars under direct visualization hemostasis was noted. Closed the fascia the umbilical port with a [id number] stitch of 0 Vicryl. Skin incisions were closed with subcuticular stitches of 4-0 Monocryl. Steri-Strips were applied sterile dressings were applied and the patient tolerated the procedure well. Maren Tsang was my program assistant. She assisted with retraction, visualization and performed skin closure. No additional surgeons or qualified residents were available. PRE-OP/PRE-PROCEDURE DIAGNOSIS: Biliary dyskinesia, right upper quadrant abdominal pain POST-OP/POST-PROCEDU RE DIAGNOSIS: Same as Preop ESTIMATED BLOOD LOSS: < 25 mls SPECIMENS: Gallbladder IMPLANTABLE DEVICES: None DRAINS: None COMPLICATIONS: None PARTICIPATION IN SURGERY/PROCEDURE: I/primary surgeon/proceduralis t performed the procedure with assistance. SIGNATURE: Ranjan Heart III, MD PATIENT NAME: Myra Pena DATE: December 25, 2020 TIME: 1:55 PM Normal [facility] SURGICAL PATHOLOGYon 021 SURGICAL PATHOLOGY Specimen originated from [facility] Specimen #: [id number] Submitting Physician: Ranjan Heart M.D. FINAL DIAGNOSIS Gallbladder, cholecystectomy - Gallbladder with no significant diagnostic alteration. COMMENT A PASD stain is negative for organisms. Dr. Cyrus Park has reviewed this case and concurs. PROMISE MCCURDY MD (Electronic Signature) SPECIMEN SUBMITTED A: GALLBLADDER CLINICAL DATA RUQ ABDOMINAL PAIN, LMP: LINOTYPIST GROSS DESCRIPTION A. Received in formalin labeled gallbladder is one intact gallbladder measuring 8 x 2.5 x 2.5 cm. The serosal surface is green-mora and dull. The cystic duct measures 2.5 cm in length. Upon opening, the average wall thickness is 0.2 cm. The mucosal surface is green and velvety. The cystic duct is not impacted. No possible lymph nodes are located near the cystic duct. The specimen is filled with green bile. No calculi are identified within the specimen or in the container. Ccna section of cystic duct and mucosa are submitted in cassette A1. KELLI/adelaida 12/25/2020 Gross examination performed at [facility], [address] [place], [place] [address] [address] Date of Report: 01/02/2021 Date of Procedure: 12/25/2020 Date of Receipt: 12/25/2020 Submitted by: Ranjan Heart M.D. Location: [facility] Diagnostic interpretation performed at [place] [address]. CLIA Number: [id number] [facility] Vital Signs Date Time Vital Sign Value Performing Clinician Siomara kirby 05-09-2025 10:20-0400 Body height 162.56 cm Dash Wang MD Work Phone: [facility] 05-09-2025 10:20-0400 Body mass index (BMI) [Ratio] 19.3 kg/m2 Dash Wang MD Work Phone: [facility] 05-09-2025 10:20-0400 Body weight 51.02 kg Dash Wang MD Work Phone: [facility] 05-09-2025 10:20-0400 Diastolic blood pressure 83 mm[Hg] Dash Wang MD Work Phone: [facility] 05-09-2025 10:20-0400 Systolic blood pressure 145 mm[Hg] Dash Wang MD Work Phone: [facility] 04-16-2023 19:02-0400 Diastolic blood pressure 76 mm[Hg] Dr. Lukasz Toledo Work Phone: [facility] 04-16-2023 19:02-0400 Heart rate 64 /min Dr. Lukasz Toledo Work Phone: [facility] 04-16-2023 19:02-0400 Respiratory rate 14 /min Dr. Lukasz Toledo Work Phone: [facility] 04-16-2023 19:02-0400 SaO2% (BldA) [Mass fraction] 98 % Dr. Lukasz Toledo Work Phone: [facility] 04-16-2023 19:02-0400 Systolic blood pressure 112 mm[Hg] Dr. Lukasz Toledo Work Phone: [facility] 04-16-2023 16:06-0400 Body height 162.[address] Lukasz Toledo Work Phone: [facility] 04-16-2023 16:06-0400 Body mass index (BMI) [Ratio] 21.6 kg/m2 Dr. Lukasz Toledo Work Phone: [facility] 04-16-2023 16:06-0400 Body weight 57.[address] Lukasz Toledo Work Phone: [facility] 04-16-2023 16:03-0400 Body temperature 97.3 [degF] Dr. Lukasz Toledo Work Phone: [facility] 02-18-2023 13:59-0400 Body height 162.[address] Lukasz Toledo Work Phone: [facility] 02-18-2023 13:55-0400 Body mass index (BMI) [Ratio] 21.2 kg/m2 Dr. Lukasz Toledo Work Phone: [facility] 02-18-2023 13:55-0400 Body weight 55.[address] Lukasz Toledo Work Phone: [facility] 02-18-2023 13:55-0400 Diastolic blood pressure 76 mm[Hg] Dr. Lukasz Toledo Work Phone: [facility] 02-18-2023 13:55-0400 Systolic blood pressure 120 mm[Hg] Dr. Lukasz Toledo Work Phone: [facility] 02-17-2022 09:11-0400 Body height 162.[address] Lukasz Toledo Work Phone: [facility] Work Phone: 02-17-2022 09:11-0400 Body mass index (BMI) [Ratio] 20.6 kg/m2 Dr. Lukasz Toledo Work Phone: [facility] Work Phone: 02-17-2022 09:11-0400 Body weight 54.[address] Lukasz Toledo Work Phone: [facility] Work Phone: 02-17-2022 09:11-0400 Diastolic blood pressure 70 mm[Hg] Dr. Lukasz Toledo Work Phone: [facility] Work Phone: 02-17-2022 09:11-0400 Systolic blood pressure 136 mm[Hg] Dr. Lukasz oTledo Work Phone: [facility] Work Phone: Encounters Encounter Date Encounter Type Care Provider Facility Start: 05-09-2025 Encounter for gynecological examination (general) (routine) without abnormal findings Tricia Yee [facility] Start: 05-09-2025 End: 05-09-2025 Patient encounter procedure Tricia DAWN -[facility] Work Phone: Start: 05-09-2025 End: 05-09-2025 Patient encounter status Tricia DAWN [facility] Start: 05-09-2025 End: 05-09-2025 ambulatory Dash Wang MD Work Phone: -[facility] Start: 04-09-2025 End: 04-09-2025 ambulatory Dash Wang MD Work Phone: -[facility] Start: 04-09-2025 End: 04-09-2025 Patient encounter procedure Tricia DAWN -[facility] Work Phone: Start: 04-09-2025 End: 04-09-2025 ambulatory Dash Wang Facility:[facility] Start: 08-16-2024 End: 08-16-2024 ambulatory MAGDI EISENBERG Facility:[facility] Start: 11-11-2023 End: 11-11-2023 ambulatory [facility] Work Phone: Start: 11-11-2023 End: 11-11-2023 Patient encounter procedure [facility]Ultrasound, [facility] Work Phone: Start: 06-17-2023 End: 06-18-[address] GÓMEZ DREW MD Facility:A Start: 06-17-2023 End: 06-17-[address] GÓMEZ DREW MD [facility] Start: 06-07-2023 End: 06-08-[address] GÓMEZ DREW MD Facility:B Start: 05-20-2023 End: 05-20-[address] Lukasz Toledo Work Phone: [facility] Work Phone: Start: 05-20-2023 End: 05-20-[address] Lukasz Toledo Work Phone: [facility] Work Phone: Start: 04-16-2023 End: 04-16-2023 Emergency department patient visit Dr. Lukasz Toledo Work Phone: [facility]-Emergency Department Work Phone: Start: 03-31-2023 End: 03-31-[address] Lukasz Toledo Work Phone: [facility] Work Phone: Start: 03-31-2023 End: 03-31-[address] Lukasz Toledo Work Phone: [facility] Start: 03-25-[address] GÓMEZ DREW MD Facility:A Start: 03-09-2023 End: 03-09-[address] Lukasz Toledo Work Phone: [facility] Work Phone: Start: 03-09-2023 End: 03-09-[address] Lukasz Toledo Work Phone: [facility]-Outpatient Breast Imaging Work Phone: Start: 02-18-2023 End: 02-18-[address] Lukasz Toledo Work Phone: [facility] Work Phone: Start: 02-18-2023 End: 02-18-[address] Lukasz Toledo Work Phone: [facility]-Laboratory, Specimen Start: 02-18-2023 End: 02-18-[address] Lukasz Toledo Work Phone: [facility] Start: 11-05-2022 End: 11-05-2022 ambulatory [facility] Work Phone: Start: 11-05-2022 End: 11-05-2022 Patient encounter procedure [facility]-Ultrasound, [facility] Start: 04-03-2022 End: 04-03-2022 Patient encounter procedure JOSIAH PATEL [facility] Start: 02-24-2022 End: 02-24-[address] Lukasz Toledo Work Phone: [facility]-Outpatient Breast Imaging Start: 02-17-2022 End: 02-17-[address] Lukasz Toledo Work Phone: [facility]-Laboratory, Specimen Start: 02-17-2022 End: 02-17-[address] Lukasz Toledo Work Phone: [facility] Start: 01-23-2022 Non-patient / Non-visit Dr. Johnny Toledo Work Phone: [facility] Start: 01-23-2022 End: 01-23-[address] Lukasz Toledo Work Phone: [facility] Start: 12-29-2021 End: 12-29-2021 Patient encounter procedure [facility]-Ultrasound, [facility] Start: 11-27-2021 End: 11-27-2021 Patient encounter procedure [facility]-Laboratory Start: 09-26-2021 End: 09-26-2021 Patient encounter procedure [facility]-Laboratory, Specimen Start: 08-28-2021 Patient encounter procedure [facility]-Laboratory, Specimen Start: 08-26-2021 Patient encounter procedure [facility]-Radiology, [place] Start: 08-25-2021 Patient encounter procedure [facility]-Laboratory, Specimen Procedures Date Procedure Procedure Detail Performing Clinician Start: 04-09-2025 Screening mammography Trever Wang MD Work Phone: Start: 11-11-2023 US scan of thyroid Start: 05-20-2023 Plain chest X-ray Dr. Trever Toledo Work Phone: Start: 04-16-2023 CT of head without contrast Dr. Lukasz Toledo Work Phone: Start: 04-16-2023 SARS-CoV-2 & FLU Ant igen (Rapid) Dr. Lukasz Toledo Work Phone: Start: 03-09-2023 Screening mammography Carlene Toledo Work Phone: Start: 11-05-2022 US scan of thyroid Start: 04-03-[address] GÓMEZ DREW MD Comment on above: Summary: 1. Staged echo conclusions: There is no diagnostic evidence for stress-induced ischemia. 2. Stress ECG conclusions: Bhandari scoring: exercise time of 10 min; maximum ST deviation of 0 mm; no angina; resulting score is 10. This score predicts a low risk of cardiac events. 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 Plan of Treatment Date Care Activity Detail Author Start: 02-18-2023 Liquid based cervica l cytology screening [facility] MG Breast - bilatera l Screening [facility] Path report.final Dx Spec [facility] Patient Education ED Dizziness, Uncertain Cause ED Headache Unspecified ED Paraesthesias [facility] Work Phone: [facility] Work Phone: [facility] Payers Date Payer Category Payer Self-pay [id number] 2023 Unknown [id number] 2023 Unknown [id number] 2011 Unknown [id number] 1970 Unknown [id number] 2.16.8 [id number] 1968 Unknown [id number] .16.8 [id number] 1968 Unknown [id number] 2.16.8 [id number] Unknown SELF PAY INSURANCE [id number] Unknown [id number] Unknown [id number] 2.16.8 [id number] Unknown [id number] 2.16.8 [id number] Unknown [id number] 2.16.8 [id number] Social History Date Type Detail Facility Start: 11-24-2021 End: 04-16-2023 Tobacco smoking status NHIS Unknown if ever smoked [facility] Start: 11-25-2020 None [facility] Start: 11-25-2020 Spouse/ Signif icant Other [facility] Start: 1970 Sex Assigned At Female [facility] Start: 12-31-2021 End: 04-16-2023 Tobacco smoking status Never smoked tobacco (finding) [facility]VC Mullin Sex Assigned At Sex [facility] Mental Status Date Assessment Result Facility 04-16-2023 Cognitive function Voice/Name [facility] Work Phone: Clinical Notes 12-25-2020 to 05-09-2025 Radiology Note Date & Type Note Facility 05-09-2025 Progress note [facility] 02-18-2023 Note [facility] Pap Smear Specimen Adequacy February 18, 2023 3:58pm Comment . Satisfactory for evaluation. Endocervical component may not bedistinguished in cases of atrophy. Comment on above: Satisfactory for patrick luation. Endocervical component may not bedistinguished in cases of atrophy. 02-18-2023 Note [facility] Pap Smear Specimen Adequacy February 18, 2023 3:58pm Comment . Satisfactory for evaluation. Endocervical component may not bedistinguished in cases of atrophy. Comment on above: Satisfactory for patrick luation. Endocervical component may not bedistinguished in cases of atrophy. 02-18-2023 Note [facility] Pap Smear Specimen Adequacy February 18, 2023 3:58pm Comment . Satisfactory for evaluation. Endocervical component may not bedistinguished in cases of atrophy. Comment on above: Satisfactory for patrick luation. Endocervical component may not bedistinguished in cases of atrophy. 02-18-2023 Note [facility] Pap Smear Specimen Adequacy February 18, 2023 3:58pm Comment . Satisfactory for evaluation. Endocervical component may not bedistinguished in cases of atrophy. Comment on above: Satisfactory for patrick luation. Endocervical component may not bedistinguished in cases of atrophy. 02-17-2022 Note [facility] Work Phone: Pap Smear Specimen Adequacy February 17, 2022 11:39am Comment . Satisfactory for evaluation. Endocervical and/or squamous metaplasticcells (endocervical component) are present. Comment on above: Satisfactory for patrick luation. Endocervical and/or squamous metaplasticcells (endocervical component) are present. 12-25-2020 Note HNO ID: [id number] Author: Ju Nunes APRN.CRNA Service: ? Author Type: Nurse Clinical Staff Anesthesiologist Type: Anesthesia Procedure Notes Filed: 12/25/2020 9:14 AM Note Text: ANESTHESIOLOGY PROCEDURE NOTE Airway General Information Procedure Start Time/Medication Administration: 12/25/2020 9:01 AM Patient location during procedure: OR Timeout Performed Pre-procedure: timeout performed Consent Obtained: Yes Patient identity confirmed: arm band and patient Staffing STRAIN TECHNICIAN: Ju Nunes APRN.STRAIN TECHNICIAN Performed by: KELLIE Indications and Patient Condition [...] no Airway not difficult SIGNATURE: Ju Nunes APRN.STRAIN TECHNICIAN PATIENT NAME: Myra Pena DATE: December 25, 2020 TIME: 9:13 AM CSN: [id number] [facility] Evaluation + Plan note Future Appointments Appointment Date:04/17/2022 04:00:00 PM Scheduled Provider: Location:[facility] Appointment Type: [facility] Evaluation + Plan note Future Appointments Appointment Date:06/25/2023 04:15:00 PM Scheduled Provider: Location:[facility] Appointment Type:[facility] Future Scheduled TestsCT Coronary Calcium Score w/o Contrast 05/17/23 [facility] Evaluation note No assessment information availa ble [facility] Work Phone: Evaluation note Diagnosis Onset Date 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 Encounter for routine gyneco logical examination noneactive [facility] Work Phone: Evaluation note* Diagnosis Onset Date Resolution Status Admit Date Encounter for routine gynecological examination noneactive 2024 10:15am [facility] Work Phone: Hospital course Narrative No data available for this section [facility] Hospital Discharge instructions No data available for this section [facility] Note* SHAQ PEDRO MD: SIGN, VERIFY Event Display: Echocardiogram Stress - CV Authored Date: [facility] Progress note No data available for this section [facility] Progress note Author Tricia Yee [facility] Note Date/Time May 09, 2025 10:38am [facility] [address] [place] [address], [address] [place] [address] OFFICE VISIT Date of Service: 05/09/25 MR#: [id number] Acct: [id number] Name: PENAMYRA ANDREW Rep #: [id number] : 1970 Provider: LÓPEZ Yee Age/Sex: 55/F Location[place] [facility] [place] Status: Signed Intake Vital Signs 02/24/24 09:30 05/09/25 10:20 Height 5 ft 4 in 5 ft 4 in Weight: 112 lb 8 oz BMI 19.3 BP 145/83 H Intake Visit 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 Specialist Required: No Is patient in pain?: No Allergies venlafaxine (From Effexor) Allergy (Intermediate, Verified 05/09/25 10:23) skin crawling Medications ?Medication ?Instructions ?Recorded ?Confirmed ?Type bupropion HCl 150 mg 24 hr tablet, 150 mg PO QAM 10/1305/09/25 History extended release aspirin 81 mg chewable tablet 81 mg PO DAILY@0800 ##30 09/30/19 05/09/25 Rx fluticasone propionate 50 1 spray intranasal DAILY 05/09/25 History mcg/actuation nasal spray,suspension rosuvastatin 20 mg tablet (Crestor) 20 mg PO DAILY 05/09/25 History omeprazole 40 mg capsule,delayed 40 mg PO DAILY 05/09/25 History release ipratropium bromide 21 mcg (0.03 2 spray intranasal BI D-TID PRN 02/17/22 05/09/25 History %) nasal spray trazodone 50 mg tablet 25 mg PO QHS 02/17/22 History clascoterone 1 % topical cream 1 applic topical BID 05/09/25 History (Winlevi) Post menopausal: No Patient : No : No PFSH Medical History TIA (transient ischemic attack) Hypercholesterolemia history of melanoma removed off of wrist Anxiety and depression GERD (gastroesophageal reflux disease) Back problem Melanoma Surgical History History of cholecystectomy Family History Mother Arthritis Mother Heart disease Hypertension Father Heart disease Hypertension High cholesterol Social History Smoking Status: Never smoker second hand exposure: No alcohol intake: current details: social substance use type: does not use caffeine: Yes frequency: 5-6 times per week seatbelt use: always do you feel safe at home: Yes 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 Date Name GA/Weeks Outcome Route Bth Weight Gen Labor Lgth Anesthesia Del Locatn Provider FOB Unknown 1990 Susanne Unknown 1995 [facility] Encounter for routine gynecological examination Details: MYRA PENA is a 55 year old who presents for annual exam. She reports no issues or concerns. Last PAP: 2022; normal; HPV neg History of abnormal PAP: ASCUS 2020, 2017. LGSIL 2019; HPV negative each. negative/negative. Last mammogram: 2024; normal History of abnormal mammogram: mo Colon cancer screenin; normal per pt Other preventative health care screenings: Dash Wang; PCP Female Reproductive History Questions: sexually active: Yes, dyspareunia: No and PCB: No Menopausal Symptoms: No hot flashes, No night sweats, No weight change, No mood changes, No difficulty concentrating, No sleep problems and No change in libido Menopausal Treatment: No HRT, No Vaginal Estrogen, No Osphena, No OTC treatmentsand No prescription non-hormonal treatment ROS Const Constitutional: Denies chills, fatigue, fever(s), headache(s), night sweats or weight loss Eyes Eyes: Denies change in vision ENT ENT: Denies dizziness Cardio Card: Denies chest pain at rest or palpitations Resp Resp: Denies cough or dyspnea GI GI: Denies abdominal pain, constipation or nausea : Denies difficulty voiding, dysuria, hematuria, hot flashes, nipple discharge, pelvic pain, prolapse symptoms, urinary incontinence, vaginal discharge, vaginal dryness, vaginal odor or vaginal pruritus Skin Skin/Breast: Denies alopecia, rash, breast mass, breast pain, breast skin changes or nipple discharge Neuro Neuro: Denies dizziness Psych Psych: Denies anxiety, change in libido, depression or difficulty concentrating Endo Endo: Denies cold intolerance, excessive sweating or heat intolerance Exam Const General: cooperative, healthy appearing, comfortable, no acute distress, well groomed and well hydrated Nutritional Appearance: well nourished Orientation: alert, awake and oriented x3 HENMT Head: normal to inspection and normocephalic Ears: hearing grossly normal bilaterally and external ears normal Nose: external nose normal Face and sinus: normal facial exam Eyes General: appearance normal, both eyes and all related structures Neck Neck: normal visual inspection, full ROM and no lymphadenopathy Thyroid: thyroid normal Chest Chest palpation & inspection: normal inspection of the chest Breast inspection: normal inspection of the breasts and normal inspection of theaxillae Breast palpation: normal palpation of the breasts, normal palpation of the axillae and no axillary lymphadenopathy Resp Effort & Inspection: normal respiratory effort, able to speak in complete sentences and symmetric chest movement GI Inspection: normal to inspection Palpation: soft and no hepatosplenomegaly General: bladder normal to palpation External Female Exam: normal external appearance and normal appearance of the urethra Urethra: normal appearance of the urethra Speculum Exam - Vagina: normal appearance of the vagina, vagina atrophic, no lesions and nontender Speculum Exam - Cervix: normal appearance of the cervix, no lesions and no masses Bimanual Exam- Vagina & Uterus: normal bimanual exam, uterine size normal, bladder normal to palpation, normal palpation and non-tender Bimanual Exam- Adnexa, other: normal adnexae, no masses, normal and non-tender Pelvic Support: normal Skin General: no rashes or lesions noted Neuro General: patient alert, patient awake, patient oriented x3 and moves all extremities Psych Appearance: grossly normal Mental Status: mental status grossly normal Affect: normal affect Speech and Movement: speech and movement normal Attitude: cooperative Coding Level of Care Code Established Pt Off vis,est,prev 40-64yrs Patient Type Established Diagnoses Encounter for routine gynecological examination Z01.419 Assessment and Plan Assessment and Plan (1) Encounter for routine gynecological examination: Plan: Breast and pelvic exam complete. PAP due: ASCCP guidelines reviewed; PAP due (next yr) 2025 with history. Mammogram due: UTD; due next year. Advised self breast exams monthly. Contraception: Post menopausal Advised incorporating healthy dietary choices such as increase in lean meats, fruits/vegetables, less processed food/sat fat/trans fats. Increase exercise to 30 minutes per day/5 days a week. This can include both weight bearing exercisesand/or brisk walking. Follow up with PCP for further preventative health screenings. Follow up 1 year for repeat annual nurse coordinator exam. Call office sooner with questions or concerns. Orders: Orders SCRN MAMM (CAD)W/JORGE BILAT 1 Year Z12.31 - Encounter for screening mammogram for malignant neoplasm of breast 05/09/25 1038 <Electronically signed by Tricia BOBC> Date _ Tricia BOBC Cosigner Signature: Date (if applicable) CC: ~ [facility] Work Phone: Reason for referral (narrative)No reason for referral information [facility]WL[facility] Work Phone: Summary Purpose Family History No Family History Records Found Relationship Condition Age at Onset Recorded Date/T bright mother Arthritis Unknown mother Cardiac disease Unknown Hypertension Unknown father Cardiac disease Unknown High blood cholesterol Unknown Advance Directives No Advanced Directives Records Found Advance Directive Response Recorded Date/ Time Living Will No November 24, 2021 2:15pm Power of Bible Reader No November 24 2:15pm Advance Directive Response Recorded Date/ Time Living Will No November 24, 2021 1:15pm Power of Bible Reader No November 24 1:15pm Advance Directive Response Recorded Date/ Time Name of Medical Power of Bible Reader Eulalio April 16, 2023 4:12pm Living Will Yes April 16 3 4:12pm Power of Bible Reader Yes April 16, 2 023 4:12pm Advance Directive Response Recorded Date/ Time Living Will Yes April 16 3 4:12pm Power of Bible Reader Yes April 16, 2 023 4:12pm Chief Complaint and Reason for Visit Chief Complaint BRONCHITIS EORDERS Chief Complaint EORDERS nodules/mass Chief Complaint EORDERS nodules/mass PALPITATION 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) SCREENING Reason for Visit ASCUS of cervix with negative high risk HPV Low grade squamous intraepithelial lesion (LGSIL) Encounter for routine gynecological examination Chief Complaint DISORDER OF THYROID Chief Complaint DISORDER OF THYROID 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) Reason for Visit ASCUS of cervix with negative high risk HPV Low grade squamous intraepithelial lesion (LGSIL) Encounter for routine gynecological examination Chief Complaint 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) 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 Reason for Visit ASCUS of cervix with negative high risk HPV Low grade squamous intraepithelial lesion (LGSIL) Encounter for routine gynecological examination Chief Complaint 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) 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 neuro symptoms Reason for Visit ASCUS of cervix with negative high risk HPV Low grade squamous intraepithelial lesion (LGSIL) Encounter for routine gynecological examination Chief Complaint 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) SCREENING neuro symptoms E ORDER Reason for Visit ASCUS of cervix with negative high risk HPV Low grade squamous intraepithelial lesion (LGSIL) Encounter for routine gynecological examination Chief Complaint Disorder of thyroid, unspecified Chief Complaint Admit Date screen for breast cancer April 09 2:24pm Chief Complaint Admit Date screen for breast cancer April 09 2:24pm 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) May 09, 2025 10:15am Reason for Visit Admit Date Encounter for routine gynecological exam ination May 09, 2025 10:15am Additional Source Comments INFORMATION SOURCE (unrecogn ized section and content) DATE CREATED AUTHOR 01/04/2021 [facility] DATE CREATED AUTHOR AUTHOR'S ORGANIZ ATION 06/26/2023 [facility] ([place]) DATE CREATED AUTHOR AUTHOR'S ORGANIZ ATION 05/11/2025 [place] Goals (unrecognized section and content) Goals may be documented in a n alternate sectionGoals may be documented in an alternate sectionGoals may be documented in an alternate section No data available for this sectionGoals may be documented in an alternate sectionGoals may be documented in an alternate sectionGoals may be documented in an alternate sectionGoals may be documented in an alternate sectionGoals may be documented in an alternate sectionGoals may be documented in an alternate section No data available for this sectionGoals may be documented in an alternate sectionGoals may be documented in an alternate sectionGoals may be documented in an alternate section Care Team (unrecognized sect ion and content) Care Team Personnel Name: JOSE TOLEDO MD Member Role: Primary Care Physician Address: Address: [facility] [address] [facility] [address] [place] [address]- Care Team Related Persons Name: EULALIO PENA Address: [address] [phone] [place] Address: [address] [id number] Name: SUSANNE PENA Care Teams (unrecognized sec tion and content) Team Status: Active Member Role Status Dates Dr. Ger Reeder MD Family Provider Active Dr. Lukasz Toledo MD Primary Care Provider Activ e Team Status: Inactive Member Role Status Dates Dr. Lukasz Toledo MD Primary Care Provider Activ e Diaz Lopez DO Attending Provider, Referring Pr denisa Active Team Status: Active Member Role Status Dates Dr. Ger Reeder MD Family Provider Active Diaz Lopez DO Primary Care Provider Active Team Status: Inactive Member Role Status Dates Dr. Lukasz Toledo MD Referring Provider Active Danika Bonds AIRCRAFT CABIN CLEANER, AIRCRAFT CABIN CLEANER-C Attending Provider Active Diaz Lopez , DO Primary Care Provider Active Team Status: Inactive Member Role Status Dates Diaz Lopez , Primary Care Provider Active Danika Bonds AIRCRAFT CABIN CLEANER, AIRCRAFT CABIN CLEANER-C Attending Provider, Referring Provider Active Team Status: Inactive Member Role Status Dates Danika Bonds AIRCRAFT CABIN CLEANER, AIRCRAFT CABIN CLEANER-C Attending Provider, Referring Provider Active Diaz Lopez , Primary Care Provider Active Team Status: Inactive Member Role Status Dates Diaz Lopez , DO Primary Care Provider, Attending Provider Active Team Status: Inactive Member Role Status Dates Diaz Lopez , Primary Care Provider Active Dr. Kalia Obando , DO Emergency Provider Active Team Status: Inactive Member Role Status Dates Diaz Lopez , Primary Care Provider Active Dash Wang MD Attending Provider Active Team Status: Inactive Member Role Status Dates Diaz Lopez , Primary Care Provider Active Dr. Kalia Obando , DO Attending Provider, [facility] Active Team Status: Inactive Member Role Status Dates Diaz Lopez , Primary Care Provi adeel, Attending Provider, Referring Provider Active Team Status: Active Member Role/Relationship Status Vida Wang MD Primary Care Provider Active Team Status: Inactive Member Role/Relationship Status Vida Wang MD Primary Care Provider Active St art: April 09, 2025 End: April 09, 2025 LÓPEZ Boogie Attending Provider Active Start: April 09, 2025 End: April 09, 2025 LÓPEZ Boogie Referring Provider Active Start: April 09, 2025 End: April 09, 2025 Team Status: Inactive Member Role/Relationship Status Vida Wang MD Primary Care Provider Active St art: May 09, 2025 End: May 09, 2025 Dash Wang MD Referring Provider Active Start : May 09, 2025 End: May 09, 2025 LÓPEZ Boogie Attending Provider Active Start: May 09, 2025 End: May 09, 2025 FOR RECORDS PERTAINING TO PATIENTS WHO ARE [...] BE BASED ON THE PRIMARY CLINICAL RECORDS. [employer] [facility]. provides no warranty or guarantee of the accuracy or completeness of information in this document.
[2025-08-11 10:14] LABS: Cholesterol 188 mg/dL (<=200); Low Density Lipoprotein Calc. 111 mg/dL; Triglycerides 96 mg/dL; Very Low Density Lipoprotein 19 mg/dL (5-40); cholesterol:hdl ratio screen 3.13
== END | disposition home or self-care (01) ==
LOC: LAB 08:39
PROVIDERS: PCP Family Medicine
DX: E78.5 Hyperlipidemia, unspecified (principal)
CPT/HCPCS: 36415; 80061